=== PATIENT | female | born 1945 | race Caucasian/White ===

== ENCOUNTER 2019-11-16 16:31 | Outpatient (CLI) | payer MEDICARE, SELFPAY ==
--- NOTE | ~2019-11-16 | CT_ITS ---
EXAMINATION: CT abdomen pelvis w con DATE: 11/16/2019 17:31 INDICATION: Blood in stool. Lower abdominal pain. TECHNIQUE: Computed tomography (CT) of the abdomen and pelvis was performed with 100 cc Omnipaque 350 intravenous contrast. The dose-length product was 352.31 mGy-cm. Automated exposure control and iter ative reconstruction technique were employed. COMPARISON: CT dated 10/26/2017 FINDINGS: Heart size normal. No significant pleural or pericardial effusion. Moderate atherosclerosis. No evidence for aneurysm. Fatty infiltration of the liver. Status post chol ecystectomy with expected prominence of the bile ducts. There is small subcentimeter hypodensity righ t hepatic lobe, most likely benign cyst or hemangioma. The spleen, pancreas, adrenal glands and kidne ys are normal. Nonobstructive bowel gas pattern. Colonic diverticulosis without evidence for diverticulitis. The devendra endix is not positively visualized. There is no pericecal inflammatory change to suggest appendiciti s. No abnormal pelvic masses or fluid collections. No lymphadenopathy. Status post fusion at L4-5 wit h discectomy. Moderate lower thoracic spondylosis. No free air or free fluid. IMPRESSION: 1. No acute abnormalities. No findings to account for patient's symptoms. Reviewed, dictated and finalized at location A.
[2019-11-16 16:49] LABS: Basophils Percent Auto 0.3 % (0.2-1.2); Eosinophils Absolute Auto 0.1 K/mm3 (0-0.3); Eosinophils Percent Auto 1.1 % (0-4.4); Hematocrit 41.1 % (37.0-47.0); Immature Granulocyte Absolute 0.09 K/mm3 (0.00-0.031); Immature Granulocyte Percent A 0.7 % (0-0.5); Lymphocytes Absolute Auto 3.49 K/mm3 (0.9-3.2); Lymphocytes Percent Auto 27.9 % (18.3-44.2); Mean Corpuscular HGB Conc 34.1 g/dl (32-36); Mean Corpuscular Hemoglobin 32.3 pg (26-34); Mean Corpuscular Volume 94.9 fl (80-100); Mean Platelet Volume 9.4 fl (7.4-10.4); Monocytes Absolute Auto 0.6 K/mm3 (0.1-0.6); Neutrophils Absolute Auto 8.1 K/mm3 (1.3-6.7); Platelet Count Result 306 k/mm3 (150-375); Red Blood Count 4.33 M/mm3 (4.2-5.4); Red Cell Distribution Width 12.5 % (11.5-14.5); White Blood Count 12.5 K/mm3 (4.5-10.0)
[2019-11-16 17:02] LABS: Blood Urea Nitrogen 27 mg/dL (7-17); Calcium 9.1 mg/dL (8.4-10.2); Carbon Dioxide 29 mmol/L (22-30); Chloride 99 mmol/L (98-107); Estimated Glomerular Filt Rate 49; Glucose 96 mg/dL (65-105); Potassium 3.6 mmol/L (3.4-5.0); Sodium 138 mmol/L (137-145)
== END 2019-11-16 16:32 | disposition home or self-care (01) ==
PROVIDERS: PCP Internal Medicine; Visit Provider Internal Medicine
DX: K92.1 Melena (principal); R10.30 Lower abdominal pain, unspecified
CPT/HCPCS: 36415; 74177; 80048; 85025; Q9967

== ENCOUNTER 2019-11-20 13:43 | Outpatient (CLI) | payer MEDICARE, SELFPAY | END 2019-11-20 13:44 | disposition home or self-care (01) | LOC: ANHLAB 13:52 | PROVIDERS: PCP Internal Medicine; Visit Provider Internal Medicine | DX: R10.30 Lower abdominal pain, unspecified (principal); R19.7 Diarrhea, unspecified | CPT/HCPCS: 87045; 87046; 87177; 87209; 87324; 87427; 89055 ==

== ENCOUNTER 2019-12-22 07:41 | Outpatient (CLI) | payer MEDICARE, SELFPAY ==
--- NOTE | 2019-12-22 | ECHO_ITS ---
Patient Info Name: Shyann Gallegos Age: 74 years : 1945 Gender: Female Ht: 59 in Wt: 140 lbs BSA: 1.65 m2 HR: 65 bpm BP: 160 / 78 mmHg Technical Quality: Good Exam Date: 12/22/2019 8:14 AM Exam Location: [facility] Patient Status: Outpatient Admit Date: 12/22/2019 Staff Ordering Physician: Dejan Ashford MD Refining Engineer: Jennifer Bustamante RDCS Attending Provider: Dejan Ashford MD Referring Physician: Dejon NOLASCO; Exam Type: CA echo doppler color flow Study Info Indications R55 - Syncope and collapse Complete two-dimensional, color flow and Doppler transthoracic echocardiogram is performed. Summary 1. Left ventricular chamber dimension is normal. 2. Left ventricular systolic function is normal, estimated at 60-65%. 3. The left ventricular diastolic function is grade I diastolic dysfunction. 4. E/e' 10 is mildly elevated. 5. Left atrial chamber dimension is mildly enlarged. 6. There is mild aortic valve sclerosis. 7. There is mild mitral valve regurgitation. 8. There is trace tricuspid valve regurgitation. 9. No pulmonary hypertension, estimated pulmonary arterial systolic pressure is 32 mmHg. Left Ventricle E/e' 10 is mildly elevated. Left ventricular chamber dimension is normal. Left ventricular systolic function is normal, estimated at 60-65%. The left ventricular diastolic function is grade I diastolic dysfunction. Right Ventricle Right ventricular chamber dimension is normal. Right ventricular systolic function is normal. Left Atria Left atrial chamber dimension is mildly enlarged. Right Atria Right atrial chamber dimension is normal. Aortic Valve The aortic valve is trileaflet. There is mild aortic valve sclerosis. There is no aortic valve stenosis. There is no aortic valve regurgitation. Pulmonic Valve There is no pulmonic regurgitation. Mitral Valve There is no mitral valve stenosis. There is mild mitral valve regurgitation. Tricuspid Valve There is trace tricuspid valve regurgitation. No pulmonary hypertension, estimated pulmonary arterial systolic pressure is 32 mmHg. Pericardium/Pleural There is no pericardial effusion. Inferior Vena Cava Normal inferior vena cava with >50% collapse upon inspiration consistent with normal right atrial pressure, 5 mmHg. Aorta The aortic root size at the sinus of Valsalva is normal. Left Ventricular Outflow Tract Name Value Normal LVOT 2D LVOT Diameter 1.9 cm LVOT Doppler LVOT Peak Velocity 98 cm/s LVOT Peak Gradient 4 mmHg LVOT Mean Gradient 2 mmHg LVOT VTI 23 cm LVOT VTI/AV VTI Ratio 0.8 LVOT Stroke Volume 67 ml LVOT CO 4.3 l/min LVOT CI 2.6 l/min/m2 Pulmonic Valve Name Value Normal
--- NOTE | 2019-12-25 16:03 | WPDHOLTEREM ---
Holter/Event Monitor Holter/Event Monitor Date of procedure: 12/22/19 Procedure Type: 48 hour holter monitor Indications: Syncope Conclusion: 1. 48 hour holter monitor on 12/22/19. 2. Underlying rhythm is sinus rhythm. HR range 51-125 bpm; average HR 69 bpm. 3. There is one premature supraventricular complex. No supraventricular tachycardia. 4. There are 111 premature ventricular complexes and 11 ventricular bigeminy. No ventricular tachycardia. 5. No sinoatrial or atrioventricular blocks. No significant pauses greater than 2 seconds. 6. No symptoms available for correlation.
== END 2019-12-22 07:42 | disposition home or self-care (01) ==
LOC: ANHCARD 07:45
PROVIDERS: PCP Internal Medicine; Visit Provider Internal Medicine
DX: R55 Syncope and collapse (principal); I34.0 Nonrheumatic mitral (valve) insufficiency; I35.1 Nonrheumatic aortic (valve) insufficiency
CPT/HCPCS: 93225; 93226; 93306

== ENCOUNTER 2020-01-02 14:07 | Outpatient (CLI) | payer MEDICARE, SELFPAY ==
[2020-01-02 15:23] LABS: Blood Urea Nitrogen 17 mg/dL (7-17); Calcium 9.4 mg/dL (8.4-10.2); Carbon Dioxide 31 mmol/L (22-30); Chloride 99 mmol/L (98-107); Estimated Glomerular Filt Rate 55; Glucose 95 mg/dL (65-105); Potassium 4.5 mmol/L (3.4-5.0); Sodium 139 mmol/L (137-145)
[2020-01-02 15:45] LABS: Free T4 Free Thyroxine 0.84 ng/mL (0.78-2.19)
[2020-01-02 16:45] LABS: Folic Acid > 20.0 ng/mL (2.76->20)
[2020-01-04 23:09] LABS: Methylmalonic Acid 187 nmol/L (87-318)
== END 2020-01-02 14:08 | disposition home or self-care (01) ==
PROVIDERS: PCP Internal Medicine; Visit Provider Internal Medicine
DX: Z79.899 Other long term (current) drug therapy (principal)
CPT/HCPCS: 36415; 80048; 82607; 82746; 83921; 84439; 84443

== ENCOUNTER 2020-04-02 12:06 | Outpatient (CLI) | payer MEDICARE, SELFPAY ==
--- NOTE | ~2020-04-02 | MM_ITS ---
EXAMINATION: MM screening [facility] BI w ashly HISTORY: Screening mammogram TECHNIQUE: Craniocaudal and mediolateral oblique 3-D tomosynthesis images were obtained and synthetic 2-D images were generated. CAD analysis was submitted and interpreted. COMPARISON: 1945 BREAST PARENCHYMAL COMPOSITION: There are scattered areas of fibroglandular density. FINDINGS: There is stable mild fibroglandular asymmetry. There is no evidence of suspicious mass, asya cification, or architectural distortion to suggest malignancy in either breast. There has been no jose picious interval change. IMPRESSION: 1. No mammographic evidence of malignancy. 2. Recommend routine screening mammography in one year. BI-RADS Category 2: Benign finding(s). Reviewed, dictated and finalized at location A.
== END 2020-04-02 12:07 | disposition home or self-care (01) ==
LOC: ANHIMG 12:13
PROVIDERS: PCP Internal Medicine; Visit Provider Internal Medicine
DX: Z12.31 Encounter for screening mammogram for malignant neoplasm of breast (principal)
CPT/HCPCS: 77063; 77067

== ENCOUNTER 2021-05-20 07:30 | Outpatient (CLI) | payer MEDICARE, SELFPAY ==
--- NOTE | ~2021-05-20 | XR_ITS ---
EXAMINATION: XR UGIAC w barium swallow DATE: 05/20/2021 08:41 INDICATION: Abdominal pain TECHNIQUE: The patient drank thick barium, gas-producing crystals, and thin barium. A total of 1162 f luoroscopic images of the esophagus, stomach, and proximal small bowel were obtained. Fluoroscopy exp osure time was 2.0 minutes. Total DAP was 12.964 mGycm^2 COMPARISON: None. FINDINGS: The esophagus is normal without mass or stricture. Esophageal motility is normal. Small sli ding-type hiatal hernia with gastroesophageal junction extending to a maximum of 4 cm above level of the diaphragm.. There was no gastroesophageal reflux with provocative maneuvers. The stomach and prox imal small bowel are otherwise normal. Cholecystectomy clips in right upper quadrant. Plate-screw fix ation for C5-C7 anterior spinal fusion. IMPRESSION: 1. Small sliding-type hiatal hernia without evident reflux on provocative maneuvers. Reviewed, dictated and finalized at location A. IMPRESSION: 1. Small sliding-type hiatal hernia without evident reflux on provocative maneu vers.
--- NOTE | ~2021-05-20 | CT_ITS ---
EXAMINATION: CT abdomen pelvis w con INDICATION: Unspecified abdominal hernia without obstruction TECHNIQUE: Computed tomographic images of the abdomen and pelvis were obtained after the administrati on of 100 cc of Omnipaque 350 intravenous contrast. The dose-length product (DLP) was 374.19 mGy-cm. Automated exposure control and iterative reconstruction technique were employed. COMPARISON: 11/16/2019 FINDINGS: Minimal dependent atelectasis is present in the lung bases. The heart size is normal. The g allbladder is surgically absent. There is mild enlargement of the common bile duct and central intrah epatic ducts which is likely due to post cholecystectomy state. There is a 6 mm cyst in the right hep atic lobe. The liver is diffusely low in attenuation when compared with the spleen, consistent with h epatic steatosis. The spleen, pancreas, and adrenal glands are normal. The kidneys are unremarkable. No pathologically enlarged abdominal or pelvic lymph nodes are identified. There is no free intraperi toneal gas or evidence of bowel obstruction. There is calcified atherosclerosis of the aorta and many of the other arteries. Colonic diverticulosis is present without evidence of diverticulitis. There a re changes of anterior and posterior fusion at L4-5. IMPRESSION: 1. No CT correlate for the patient's symptoms. Reviewed, dictated and finalized at location A.
[2021-05-20 08:00] LABS: Estimated Glomerular Filt Rate 44
== END 2021-05-20 07:31 | disposition home or self-care (01) ==
PROVIDERS: PCP Internal Medicine; Visit Provider Internal Medicine
DX: K46.9 Unspecified abdominal hernia without obstruction or gangrene (principal); R10.9 Unspecified abdominal pain; R11.0 Nausea; K44.9 Diaphragmatic hernia without obstruction or gangrene
CPT/HCPCS: 74177; 74246; Q9967

== ENCOUNTER 2021-07-14 08:43 | Outpatient (CLI) | payer MEDICARE, SELFPAY | END 2021-07-14 08:44 | disposition home or self-care (01) | LOC: ANHLAB 08:45 | PROVIDERS: PCP Internal Medicine; Visit Provider Internal Medicine | DX: R19.7 Diarrhea, unspecified (principal) | CPT/HCPCS: 82438; 84302; 84311; 87045; 87177; 87209; 87324; 87427; 89055 ==

== ENCOUNTER 2021-10-15 01:41 | Day surgery (SDC) | payer MEDICARE, SELFPAY ==
[2021-10-08 12:33] VITALS: BMI 30.2
--- NOTE | 2021-10-14 16:42 | PM.HPGS ---
History of Present Illness History of Present Illness Consent: Risks, benefits, and alternatives have been discussed and questions answered. Patient agrees to proceed with procedure. Chief complaint: diarrhea, colitis Narrative: Shyann Gallegos is a 76 year old female who is being investigated for persistent diarrhea. This began about 5 or 6 months ago. She will have anywhere from 5-6 loose watery stools each day. She has taking cholestyramine powder but it has not been of much help Review of Systems Review of Systems: All systems reviewed & are unremarkable except as noted in HPI and below PMFSH Past Medical History Medical History Abdominal mass Abdominal pain Abnormal finding of blood chemistry, unspecified Acute herpangina Anemia Anterior communicating artery aneurysm Anxiety Benign essential hypertension Bloody stool BMI 30.0-30.9,adult BMI 31.0-31.9,adult BMI 32.0-32.9,adult Chronic pruritus Cognitive dysfunction CVA (cerebral vascular accident) had cardiac cath causing plaque embolism Diarrhea Diarrhea Diplopia Encounter for Medicare annual wellness exam Encounter for routine adult health examination without abnormal findings Encounter for screening mammogram for malignant neoplasm of breast Fall Familial hypercholesterolemia Family history of colon cancer FHx: type 2 diabetes mellitus Follow up GERD (gastroesophageal reflux disease) GERD (gastroesophageal reflux disease) History of paresthesia Hyperlipidemia Hypertension Hypervitaminosis D Lower abdominal pain Memory impairment Microvascular angina Nausea On fdc drug therapy Rectal abscess Seborrheic dermatitis Statin intolerance Syncope Vitamin D deficiency Surgical History Surgical History History of bladder surgery times 7 from [id number] History of bunionectomy 1979 right one in 1998 History of cerebral aneurysm repair times 2 2019 History of foot surgery right in 2013 left in 2015 History of hysterectomy total 1979 History of laparoscopic cholecystectomy 2003 History of repair of hip joint 2006 History of rotator cuff surgery left in 1996 right 1999 History of spinal surgery 2017 Family History Family History Father Diabetes mellitus Hypertension Family history of malignant neoplasm Family history of diabetes mellitus in first degree relative Family history of heart disease in male family member before age 55 Mother Hypertension Family history of heart disease in male family member before age 55 Sibling Family history of cardiovascular disease Family history of heart disease in male family member before age 55 Grandparent Carcinoma of colon Social History Social History Smoking status: Never smoker Alcohol intake: current Drinks per week: 7 Substance use: never Living arrangements: with family Gender identity (if verbalized by the patient): Female Sexual Orientation (if Verbalized by the Patient): Straight or Heterosexual Spiritual care concerns: No Meds Home Medications and Allergies Home Medications Medication Instructions Recorded Confirmed Type topiramate [Topamax] 50 mg PO BID 07/07/19 10/15/21 History aspirin 81 mg tablet,delayed 81 mg PO DAILY 09/13/19 10/08/21 History release calcium polycarbophil 625 mg tablet 1,250 mg PO BID 09/13/19 10/15/21 History mecobalamin (vitamin B12) 1,000 1,000 mcg SUBLINGUAL DAILY 09/13/19 10/15/21 History mcg disintegrating tablet,sublingual quinapril 40 mg tablet See Rx Instructions .ROUTE 11/27/20 10/15/21 Rx .COMPLEX #90 tablet bumetanide 1 mg tablet See Rx Instructions .ROUTE 01/27/21 10/08/21 Rx .COMPLEX #180 tablet isosorbide mononitrate 30 mg See Rx Instructions .ROUTE 01/27/21 10/15/21 Rx tabl
[2021-10-15 09:20] VITALS: BP 132/81; PULSE 72; RESP 18; TEMP 36.4; O2SAT 99
[2021-10-15] MEDS: LACTATED RINGERS 1,000 ML 150 ML IV CONT (09:29)
--- NOTE | 2021-10-15 10:09 | WPDANESEPPF ---
Anes - Initial Pre Proc Eval Procedure: Operation Date: 10/15/21 10:30 Proposed Procedures p Colonoscopy - Emanuel Phelps MD Date/Time: 10/15/21 10:09 Surgeon: Emanuel Phelps MD Pre Op Diagnosis: diarrhea, colitis Patient Data Age: 76 Gender: F Height: 1.5 m Weight: 66 kg Last Vital Signs Temp 97.6 F 10/15/21 09:20 Pulse 72 10/15/21 09:20 Resp 18 10/15/21 09:20 BP 132/81 10/15/21 09:20 Pulse Ox 99 10/15/21 09:20 Allergies Allergy/AdvReac Type Severity Reaction Status Date / Time meperidine Allergy Unknown Vomiting Verified 10/15/21 09:17 morphine Allergy Unknown Itching Verified 10/15/21 09:17 Dxkseyx-GPH-TpI Reductase Allergy Unknown Muscle Pain Verified 10/15/21 09:17 Inhibitor [Ubkvubv-Ywp-Onp Reductase Inhibitor] VICYL SUTURES Allergy Unknown ABCESS Uncoded 10/15/21 09:17 Home Medications Medication Instructions Recorded Confirmed Type topiramate [Topamax] 50 mg PO BID 07/07/19 10/15/21 History aspirin 81 mg tablet,delayed 81 mg PO DAILY 09/13/19 10/08/21 History release calcium polycarbophil 625 mg tablet 1,250 mg PO BID 09/13/19 10/15/21 History mecobalamin (vitamin B12) 1,000 1,000 mcg SUBLINGUAL DAILY 09/13/19 10/15/21 History mcg disintegrating tablet,sublingual quinapril 40 mg tablet See Rx Instructions .ROUTE 11/27/20 10/15/21 Rx .COMPLEX #90 tablet bumetanide 1 mg tablet See Rx Instructions .ROUTE 01/27/21 10/08/21 Rx .COMPLEX #180 tablet isosorbide mononitrate 30 mg See Rx Instructions .ROUTE 01/27/21 10/15/21 Rx tablet,extended release 24 hr .COMPLEX #90 tablet omeprazole 40 mg capsule,delayed 40 mg PO BID #180 cap 05/13/21 10/15/21 Rx release alprazolam 0.25 mg tablet 0.25 mg PO TID PRN #30 tablet 05/15/21 10/08/21 Rx citalopram 20 mg tablet See Rx Instructions .ROUTE 07/01/21 10/15/21 Rx .COMPLEX #90 tablet cholecalciferol (vitamin D3) 1,250 See Rx Instructions PO .COMPLEX 08/19/21 10/15/21 Rx mcg (50,000 unit) capsule #10 cap metoprolol tartrate 50 mg tablet See Rx Instructions .ROUTE 09/17/21 10/15/21 Rx .COMPLEX #180 tablet cholestyramine-aspartame 4 gram 4 ea PO DAILY 09/23/21 10/15/21 History oral powder for susp in a packet evolocumab 140 mg/mL subcutaneous 140 mg SUBCUT .every 2 weeks #2 ml 09/23/21 10/15/21 Rx pen injector Patient hx anesthesia problems: none Family hx anesthesia problems: none Results Review: All pre-operative results and documents have been reviewed as part of the pre-operative evaluation. [facility] Past Medical History Medical History Abdominal mass Abdominal pain Abnormal finding of blood chemistry, unspecified Acute herpangina Anemia Anterior communicating artery aneurysm Anxiety Benign essential hypertension Bloody stool BMI 30.0-30.9,adult BMI 31.0-31.9,adult BMI 32.0-32.9,adult Chronic pruritus Cognitive dysfunction CVA (cerebral vascular accident) had cardiac cath causing plaque embolism Diarrhea Diarrhea Diplopia Encounter for Medicare annual wellness exam Encounter for routine adult health examination without abnormal findings Encounter for screening mammogram for malignant neoplasm of breast Fall Familial hypercholesterolemia Family history of colon cancer FHx: type 2 diabetes mellitus Follow up GERD (gastroesophageal reflux disease) GERD (gastroesophageal reflux disease) History of paresthesia Hyperlipidemia Hypertension Hypervitaminosis D Lower abdominal pain Memory impairment Microvascular angina Nausea On [facility] drug therapy Rectal abscess Seborrheic dermatitis Statin intolerance Syncope Vitamin D deficiency Surgical History Surgical History History of bladder surgery times 7 from [id number] History of bunionectomy 1980 right one in 1998 History of cerebral aneurysm repair times 2 2019 History of foot surgery right in 2012 l
[2021-10-15 10:54] VITALS: BP 106/57; PULSE 65; RESP 16; O2SAT 98
[2021-10-15 11:04] VITALS: BP 153/76; PULSE 65; RESP 17; O2SAT 100
[2021-10-15 11:14] VITALS: BP 148/75; PULSE 62; RESP 13; O2SAT 100
== END 2021-10-15 11:15 | disposition home or self-care (01) ==
PROVIDERS: PCP Internal Medicine; Visit Provider Internal Medicine Gastroenterology
PROC: 0DJD8ZZ Inspection of Lower Intestinal Tract, Via Natural or Artificial Opening Endoscopic (ICD-10-PCS; CPT 45378; principal; 2021-10-15 10:30)
DX: R19.7 Diarrhea, unspecified (principal); K57.30 Diverticulosis of large intestine without perforation or abscess without bleeding; I10 Essential (primary) hypertension; F41.9 Anxiety disorder, unspecified; D64.9 Anemia, unspecified; E78.00 Pure hypercholesterolemia, unspecified; K21.9 Gastro-esophageal reflux disease without esophagitis; E78.5 Hyperlipidemia, unspecified; E55.9 Vitamin D deficiency, unspecified; Z86.73 Personal history of transient ischemic attack (TIA), and cerebral infarction without residual deficits; Z79.82 Long term (current) use of aspirin; Z79.899 Other long term (current) drug therapy
CPT/HCPCS: 45380; 88305; J2704; J7120

== ENCOUNTER → 2022-02-20 05:01 | Outpatient (CLI) | payer MEDICARE, SELFPAY ==
[2022-02-20 12:35] LABS: Influenza A QL RT-PCR Negative (Negative); Influenza B QL RT-PCR Negative (Negative); SARS-CoV-2 RNA PCR Negative
== END ==
PROVIDERS: PCP Internal Medicine; Visit Provider Internal Medicine
DX: Z20.822 Contact with and (suspected) exposure to COVID-19 (principal)
CPT/HCPCS: 87502; C9803; U0003; U0005

== ENCOUNTER 2022-02-23 11:08 | Outpatient (CLI) | payer MEDICARE, SELFPAY ==
--- NOTE | ~2022-02-23 | XR_ITS ---
EXAMINATION: XR sinus min 3V DATE: 02/23/2022 11:43 INDICATION: Cough. TECHNIQUE: 5 views of the paranasal sinuses were obtained. COMPARISON: Head CT 09/30/2018 FINDINGS: Bone alignment is normal. There is mucosal thickening in the maxillary sinuses and fluid in right maxillary sinus. There are changes of right-sided craniotomy with right-sided embolization coi ls and aneurysm clips. IMPRESSION: 1. Mucosal thickening in the paranasal sinuses and fluid in right maxillary sinus. Reviewed, dictated and finalized at location A. IMPRESSION: 1. Mucosal thickening in the paranasal sinuses and fluid in right maxillary sin us.
--- NOTE | ~2022-02-23 | XR_ITS ---
EXAMINATION: XR chest 2V DATE: 02/23/2022 11:43 INDICATION: Cough TECHNIQUE: PA and lateral views of the chest are obtained. COMPARISON: 09/30/2018 FINDINGS: The lungs are free of acute opacities. There is no pleural effusion or pneumothorax. The ca rdiomediastinal silhouette is normal. There is moderate thoracic spondylosis. Surgical clips in the r ight upper quadrant are likely from prior cholecystectomy. There is partially imaged posterior fusion hardware of the lumbar spine. Anterior fusion hardware is also noted in the lower cervical spine. IMPRESSION: 1. No acute cardiopulmonary abnormality. Reviewed, dictated and finalized at location A.
== END 2022-02-23 11:09 | disposition home or self-care (01) ==
PROVIDERS: PCP Internal Medicine; Visit Provider Internal Medicine
DX: R05.9 Cough, unspecified (principal); J34.89 Other specified disorders of nose and nasal sinuses
CPT/HCPCS: 70220; 71046

== ENCOUNTER 2022-06-02 11:11 | Outpatient (CLI) | payer MEDICARE, SELFPAY ==
--- NOTE | ~2022-06-02 | XR_ITS ---
XR hip LT min 2V 06/02/2022 11:51 Indication: 3 views left hip Procedure: 02/01/2019 Comparison: 02/01/2019 Findings: There is mild osteoarthritis of the left hip. There is anatomic alignment. No fracture or t raumatic malalignment. No soft tissue abnormality. No foreign body. Impression: 1: Mild osteoarthritis of the left hip. Reviewed, dictated and finalized at location B. Impression: 1: Mild osteoarthritis of the left hip.
== END 2022-06-02 11:12 | disposition home or self-care (01) ==
PROVIDERS: PCP Internal Medicine; Visit Provider Internal Medicine
DX: M16.12 Unilateral primary osteoarthritis, left hip (principal)
CPT/HCPCS: 73502

== ENCOUNTER 2022-07-26 15:35 | Emergency (ER) | payer MEDICARE, SELFPAY ==
[2022-07-26 15:53] VITALS: BP 142/77; PULSE 86; RESP 16; TEMP 36.1; O2SAT 99
--- NOTE | 2022-07-26 16:19 | ED.URI ---
HPI - URI/Sore Throat General Chief Complaint: Upper Respiratory Infection Stated Complaint: requests covid/flu test Time Seen by Provider: 07/26/22 16:00 Source: patient and family Mode of arrival: ambulatory Limitations: no limitations History of Present Illness HPI Narrative: Patient presents today with a one-week history of nasal congestion, right ear clogging, cough, fatigue, shortness of breath with exertion. Denies fever. She was placed on cefdinir via phone call 2 days ago by her PCP for her symptoms. She has also been taking Robitussin. Neither of these medications have been providing relief. Related Data Home Medications Medication Instructions Recorded Confirmed topiramate 50 mg tablet (Topamax) 50 mg PO BID 07/07/19 07/26/22 calcium polycarbophil 625 mg 1,250 mg PO BID 09/13/19 07/26/22 tablet (FiberCon) mecobalamin (vitamin B12) 1,000 1,000 mcg sublingual DAILY 09/13/19 07/26/22 mcg disintegrating tablet,sublingual amlodipine 5 mg tablet 5 mg PO DAILY 06/22/22 07/26/22 aspirin 81 mg chewable tablet 81 mg PO DAILY 06/22/22 07/26/22 prenat.vits,asya,hms-mgxd-bvdrj 1 tablet PO DAILY 06/22/22 07/26/22 Allergies Allergy/AdvReac Type Severity Reaction Status Date / Time meperidine Allergy Unknown Vomiting Verified 07/26/22 15:53 morphine Allergy Unknown Itching Verified 07/26/22 15:53 Dmmbjsl-VIO-JvF Reductase Allergy Unknown Muscle Pain Verified 07/26/22 15:53 Inhibitor [Pgbmapt-Zcn-Agd Reductase Inhibitor] demeral Allergy Mild Unknown Uncoded 07/26/22 15:53 VICYL SUTURES Allergy Unknown ABCESS Uncoded 07/26/22 15:53 Review of Systems Review of Systems: CONSTITUTIONAL: Denies body aches, fever, chills, or sweats.+ fatigue EYES: Denies visual changes, redness, or discharge. ENT: Denies rhinorrhea. + congestion, right ear clogging CARDIOVASCULAR: Denies chest pain, palpitations, or edema. RESPIRATORY: + cough, shortness of breath with exertion GASTROINTESTINAL: Denies abdominal pain, nausea, vomiting, or diarrhea. GENITOURINARY: Denies dysuria or hematuria. SKIN: Denies rash, itching, or wounds. MUSCULOSKELETAL: Denies back pain, joint pain, or myalgia. NEUROLOGIC: Denies headache, numbness, tingling, or weakness. PSYCH: Denies depression or anxiety. [facility] Past Medical History Medical History Abdominal mass Abdominal pain Abnormal finding of blood chemistry, unspecified Acute herpangina Anemia Anterior communicating artery aneurysm Anxiety Benign essential hypertension Bloody stool BMI 30.0-30.9,adult BMI 31.0-31.9,adult BMI 32.0-32.9,adult Chronic pruritus Cognitive dysfunction CVA (cerebral vascular accident) had cardiac cath causing plaque embolism Diarrhea Diarrhea Diplopia Encounter for Medicare annual wellness exam Encounter for routine adult health examination without abnormal findings Encounter for screening mammogram for malignant neoplasm of breast Essential (primary) hypertension Fall Familial hypercholesterolemia Family history of colon cancer FHx: type 2 diabetes mellitus Follow up GERD (gastroesophageal reflux disease) GERD (gastroesophageal reflux disease) History of paresthesia History of stress test Hyperlipidemia Hypertension Hypervitaminosis D Lower abdominal pain Memory impairment Microvascular angina Mixed hyperlipidemia Nausea 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
== END 2022-07-26 16:30 | disposition home or self-care (01) ==
PROVIDERS: Emergency Provider Nurse Practitioner; PCP Internal Medicine
DX: B34.9 Viral infection, unspecified (principal); H66.003 Acute suppurative otitis media without spontaneous rupture of ear drum, bilateral; I10 Essential (primary) hypertension; K21.9 Gastro-esophageal reflux disease without esophagitis; E78.5 Hyperlipidemia, unspecified; Z79.82 Long term (current) use of aspirin; Z20.822 Contact with and (suspected) exposure to COVID-19
CPT/HCPCS: 87426; 87804; 99213; C9803; G0463

== ENCOUNTER 2022-08-13 12:30 | Outpatient (RCR) | payer MEDICARE, SELFPAY ==
--- NOTE | 2022-07-14 17:10 | PTOPEVAL1 ---
Assessment and note entered by Paris Maza, PT Evaluation Information Assessment Status Evaluation Diagnosis L hip trochanteric and sciatica Subjective Information Just wants to be able to walk without being so uncomfortable Reported Pain Level Pain Score 2: Self Report Additional Pain Score Comments Had a steroid shot, and had 0/10 pain after this for about a week. was about 2 weeks ago Assessment PT Clinical Summary Pt presents w/ L trochanteric bursitis. Had been seeing her chiropractor for this and has improved but has not become pain free thus was referred to MD. Pt demo's tenderness to TFL L>R, glute med L>R , (+) tight ITB bilat, and poor lumbopelvic core strength. Pt will benefit from therapy to address these issues and improve pain thus meeting her goals Plan of Care Interventions Electrical Stimulation,Hot Pack/Cold Pack,Manual Therapy,Neuro Re-education,Therapeutic Activities, Therapeutic Exercise,Ultrasound PT Services Indicated Yes Treatment Frequency and 1-2x weekly x 4-6 weeks Duration These treatments will address the objective and functional deficits as defined above. The patient will be advanced safely and appropriately in order for the patient to progress towards his/her prior level of function. Additional exercises will be introduced and as well as a comprehensive home exercise program upon discharge, if needed, ?to ensure carryover of functional gains achieved in the clinic. This treatment plan has been reviewed and agreement upon by the patient.
--- NOTE | 2022-08-05 15:09 | PCPTNOTE ---
Patient did not come to appointment this date. Called and spoke with patient who states she was confused and thought her appointment was tomorrow. Patient is scheduled for tomorrow August 06.
--- NOTE | 2022-08-13 13:03 | BUPTOPDC ---
Assessment and note entered by Paris Maza, PT Assessment Status Discharge Report Diagnosis L hip trochanteric and sciatica Subjective Information Pt reports feeling 0% improvement with therapy. Cont to have pain in left hip. Reported Pain Level Pain Score 0/10: seated Assessment PT Clinical Summary Pt dannyo's improved hamstring length, piriformis length grossly unchanged without pain during testing. Lumbar AROM WFL in all planes however has increased pain in left glute with AROM compared to evaluation without pain. Localized glute pain appears increased today compared to prior sessions , limiting left hip strength testing. Pelvis appears aligned to be aligned today, and pt maryse's improved core strength also. Pt reports will be receiving an MRI 08/25/22 and her doctor thinks she has tears in there . Pt encouraged to call and let therapist know findings, but this plan will be discharged. Should pt require continued therapy , a new prescription for a new evaluation will be necessary. Plan of Care Discharge from current plan.
== END 2022-08-14 10:22 | disposition home or self-care (01) ==
LOC: ANHGOSHPT 12:30
PROVIDERS: PCP Internal Medicine; Visit Provider Orthopaedic Surgery
DX: M70.62 Trochanteric bursitis, left hip (principal)
CPT/HCPCS: 97014; 97110; 97112; 97140; 97162; G0283

== ENCOUNTER → 2022-10-01 09:36 | Outpatient (CLI) | payer MEDICARE, SELFPAY ==
--- NOTE | ~2022-10-01 | CT_ITS ---
Noncontrast CT scan of the left hip Correlation: Pain TECHNIQUE: Axial noncontrast imaging of the pelvis was performed. Sagittal and coronal reformatted im ages through the left hip were performed. Dose reduction technique was used on this scan by utilizing automated exposure control and iterative reconstruction technique. FINDINGS: No acute fracture or dislocation seen. Bilateral hip joint spaces are preserved. Bilateral SI joints appear intact. Pubic symphysis unremarkable. Visual is musculature about the pelvis and left hip is unremarkable. No soft tissue mass or fluid col lection seen. No fluid distended bursae identified. Visualized bowel loops are unremarkable. No pelvic mass identified. No ascites. IMPRESSION: No significant abnormality identified. Reviewed, dictated and finalized at location . [employer]
== END ==
PROVIDERS: PCP Internal Medicine; Visit Provider Orthopaedic Surgery
DX: M25.552 Pain in left hip (principal)
CPT/HCPCS: 73700

== ENCOUNTER 2022-12-23 14:26 | Outpatient (CLI) | payer MEDICARE, SELFPAY ==
--- NOTE | ~2022-12-23 | MM_ITS ---
EXAMINATION: MM screening linda BI w ashly HISTORY: Screening mammogram TECHNIQUE: Craniocaudal and mediolateral oblique 3-D tomosynthesis images were obtained and synthetic 2-D images were generated. CAD analysis was submitted and interpreted. COMPARISON: 04/02/2020, 01/03/2019, 12/28/2017 bilateral screening mammogram examinations BREAST PARENCHYMAL COMPOSITION: The breasts are almost entirely fatty. FINDINGS: There is no evidence of suspicious mass, calcification, or architectural distortion to sugg est malignancy in either breast. There has been no suspicious interval change. IMPRESSION: 1. No mammographic evidence of malignancy. 2. Recommend routine screening mammography in one year. BI-RADS Category 1: Negative Reviewed, dictated and finalized at location B.
== END 2022-12-23 14:27 | disposition home or self-care (01) ==
PROVIDERS: PCP Internal Medicine; Visit Provider Internal Medicine
DX: Z12.31 Encounter for screening mammogram for malignant neoplasm of breast (principal)
CPT/HCPCS: 77063; 77067

== ENCOUNTER 2023-05-24 13:04 | Observation (INO) | payer MEDICARE, SELFPAY ==
--- NOTE | ~2023-05-24 | XR_ITS ---
EXAMINATION: XR pelvis 1-2V, XR femur LT min 2V DATE: 05/24/2023 14:59 INDICATION: Left hip pain TECHNIQUE: 1. An anteroposterior view of the pelvis was obtained. 2. AP and lateral views of the left femur were obtained on overlapping proximal and distal images. COMPARISON: Left hip CT dated 10/01/2022 FINDINGS: Postoperative changes of a combined instrumented L4-L5 anterior and posterior spinal fusion with inte rbody bone graft cage and incompletely visualized bilateral vertical candy and pedicle screw fixation. Likely dropped clip in the central pelvis. Bone alignment is normal. No fracture or suspected avascul ar necrosis. Mild bilateral hip osteoarthritis with superomedial predominant nonuniform joint space n arrowing. Additional mild osteoarthritis at the bilateral sacroiliac joints. Left knee joint spaces appear norm al on nonweightbearing imaging. Soft tissues are unremarkable. No left knee joint effusion. IMPRESSION: 1. Mild bilateral hip and sacroiliac osteoarthritis. No acute osseous abnormality in the pelvis or le ft thigh. Reviewed, dictated and finalized at location A. IMPRESSION: 1. Mild bilateral hip and sacroiliac osteoarthritis. No acute osseous abnormali ty in the pelvis or left thigh.
[2023-05-24 13:11] VITALS: BP 150/71; PULSE 69; RESP 17; TEMP 36.1; O2SAT 100
[2023-05-24] MEDS: ACETAMINOPHEN 500 MG TABLET 1000 MG PO (15:02)
[2023-05-24] MEDS: CYCLOBENZAPRINE HCL 5 MG TABLET PO ×2 (15:02→23:34)
[2023-05-24] MEDS: oxyCODONE/ACETAMINOPHEN (*CRX) 5-325 MG TABLET 1 TABLET PO (16:06)
--- NOTE | 2023-05-24 16:56 | ED.LOWEXIN ---
HPI - Extremity Injury (Lower) General Chief Complaint: Extremity Injury, Lower Stated Complaint: fall - left hip pain Time Seen by Provider: 05/24/23 14:20 History of Present Illness HPI Narrative: This is a 78-year-old female, who presents to the emergency department complaining of sudden onset left leg pain. The patient states she was working in her yard, pushing an empty the garbage can, when she suddenly felt shooting left leg pain, originating in the buttock and spreading to the foot. She also complains of numbness of the base of the left foot. She denies preceding trauma, fevers, chills, chest pain or pain. Related Data Home Medications Medication Instructions Recorded Confirmed topiramate 50 mg tablet (Topamax) 50 mg PO BID 07/07/19 04/01/23 calcium polycarbophil 625 mg 1,250 mg PO BID 09/13/19 04/01/23 tablet (FiberCon) amlodipine 5 mg tablet 5 mg PO DAILY 06/22/22 04/01/23 aspirin 81 mg chewable tablet 81 mg PO DAILY 06/22/22 04/01/23 prenat.vits,asya,mbf-zzop-qqghr 1 tablet PO DAILY 06/22/22 04/01/23 mecobalamin (vitamin B12) 1,000 1,000 mcg PO DAILY 04/05/23 mcg chewable tablet Allergies Allergy/AdvReac Type Severity Reaction Status Date / Time meperidine Allergy Unknown Vomiting Verified 05/24/23 13:48 morphine Allergy Unknown Itching Verified 05/24/23 13:48 Pjijlnr-AGQ-WrJ Reductase Allergy Unknown Muscle Pain Verified 05/24/23 13:48 Inhibitor [Lfqxytg-Bva-Olh Reductase Inhibitor] demeral Allergy Mild Unknown Uncoded 10/07/22 10:53 VICYL SUTURES Allergy Unknown ABCESS Uncoded 10/07/22 10:53 Review of Systems Review of Systems: CONSTITUTIONAL: Denies fever, chills, or sweats. CARDIOVASCULAR: Denies chest pain, palpitations, or edema. RESPIRATORY: Denies cough or dyspnea. GASTROINTESTINAL: Denies abdominal pain, nausea, vomiting, or diarrhea. GENITOURINARY: Denies dysuria or hematuria. SKIN: Denies rash or itching. MUSCULOSKELETAL: Left leg pain denies back pain, or myalgia. NEUROLOGIC: Left foot numbness denies headache, dizziness, or weakness. PSYCHIATRIC: Denies anxiety or depression. [facility] Past Medical History Medical History Abdominal mass Abdominal pain Abnormal finding of blood chemistry Abnormal finding of blood chemistry, unspecified Acute herpangina Anemia Anterior communicating artery aneurysm Anxiety Benign essential hypertension Bloody stool BMI 28.0-28.9,adult BMI 29.0-29.9,adult BMI 30.0-30.9,adult BMI 31.0-31.9,adult BMI 32.0-32.9,adult Chest wall pain Chronic pruritus Cognitive dysfunction CVA (cerebral vascular accident) had cardiac cath causing plaque embolism Diarrhea Diarrhea Diplopia Encounter for Medicare annual wellness exam Encounter for routine adult health examination without abnormal findings Encounter for screening mammogram for malignant neoplasm of breast Essential (primary) hypertension Fall Familial hypercholesterolemia Family history of colon cancer FHx: type 2 diabetes mellitus Flank pain Follow up GERD (gastroesophageal reflux disease) GERD (gastroesophageal reflux disease) History of paresthesia History of stress test Hyperlipidemia Hypertension Hypervitaminosis D Lower abdominal pain Memory impairment Microvascular angina Mixed hyperlipidemia Nausea 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
[2023-05-24] MEDS: LIDOCAINE 5% PATCH 1 PATCH TRANSDERM (17:04)
[2023-05-24 21:36] VITALS: BP 154/65; PULSE 67; RESP 18; O2SAT 99
--- NOTE | 2023-05-24 22:30 | ADMGEN ---
This patient, Shyann Gallegos, was admitted to [address] [place] [address] Room 330-02. Patient/family oriented to hospital policies and general routines including ID bracelet, bed and alarms, visiting hours, pain management, procedures, bathroom and other care routines, personal items, smoking policy, room service/diet, and visiting hours. Information on how to activate the Rapid Response Team has been discussed. Patient/Family are encouraged to report perceived risks to care and to ask questions if they do not understand what they are told or what they should do.
[2023-05-24 22:40] VITALS: BP 140/69; PULSE 65; RESP 16; TEMP 36.7; O2SAT 98; BMI 28.4
[2023-05-24 22:53] VITALS: BMI 28.7
--- NOTE | 2023-05-24 23:07 | PM.IMHP ---
H&P: HPI History of Present Illness Date/Time: 05/24/23 22:00 Chief Complaint: Left back and leg pain. Narrative: This is a pleasant 78-year-old female with history of hypertension, cerebral aneurysm status post clip, hypertension, dyslipidemia, and gastroesophageal reflux disease who presented to the emergency department via EMS from home for evaluation of left back and leg pain. The patient provides the following history. She felt in her usual state of health when she got up this morning. She and her spent time raking up leaves in the yard. While pushing an empty trash bin in the grass to clean up the leaves, she had sudden onset of severe, sharp shooting pain in the left buttock radiating down the left leg. Her leg buckled and she fell backwards onto the grass. She was unable to get herself up due to excruciating pain and was brought in for evaluation. In addition to the pain she has some numbness and tingling at the bottom of the left foot and weaker foot pushes on the left when compared to the right. She was given a dose of cyclobenzaprine and oxycodone for presumed piriformis syndrome and she was to be discharged home however was not able to get herself up and she is being admitted in this setting for supportive care. Review of Systems Review of Systems: Twelve systems were reviewed. No fever, chills, or sweats. No recent cold or flu symptoms. No chest pain shortness a breath. No other focal symptoms. Except as documented, all other systems were reviewed and are negative. [facility] Past Medical History Medical History (Updated 05/25/23 @ 16:49 by Agatha Freedman PA-C) Anemia Anterior communicating artery aneurysm Anxiety Benign essential hypertension Chronic pruritus Cognitive dysfunction CVA (cerebral vascular accident) had cardiac cath causing plaque embolism Essential (primary) hypertension Familial hypercholesterolemia GERD (gastroesophageal reflux disease) Hyperlipidemia Hypertension Hypervitaminosis D Microvascular angina Mixed hyperlipidemia Seborrheic dermatitis Statin intolerance Syncope Vitamin D deficiency Surgical History Surgical History History of bladder surgery times 7 from [id number] History of bunionectomy 1979 right one in 1998 History of cerebral aneurysm repair times 2 2019 History of cholecystectomy (~2002) History of foot surgery right in 2013 left in 2015 History of hysterectomy total 1978 History of laparoscopic cholecystectomy 2003 History of repair of hip joint 2006 History of rotator cuff surgery left in 1997 right 1999 History of spinal surgery 2017 History of surgery on lower extremity (~1977) Tail bone removal Family History Family History Father Diabetes mellitus Hypertension Family history of malignant neoplasm Family history of diabetes mellitus in first degree relative Family history of heart disease in male family member before age 55 Heart disease Mother Hypertension Family history of heart disease in male family member before age 55 Heart disease Sibling Family history of cardiovascular disease Family history of heart disease in male family member before age 55 Grandparent Carcinoma of colon Social History Social History (Updated 05/25/23 @ 16:50 by Agatha Freedman PA-C) Smoking status: Never smoker Alcohol intake: current Drinks per week: 5 Substance use: never Lack of Transportation: No Lack of Food: Never True Current Housing: I Have Housing Concerned About Future Housing: No Difficulty Paying Gas/Electric Bills: No Difficulty Paying for Meds: No Currently Unemployed: No Education: Trade/Vocational Certificate Difficulty w/ Childcare or Family Care: No Living arrangements: with family Occupation/Education: retired Spiritual care concerns: No Meds Home Medicati
[2023-05-24] MEDS: MELATONIN 5 MG TABLET 10 MG PO (23:33)
[2023-05-25 06:00] VITALS: BP 106/53; PULSE 69; RESP 16; TEMP 36.8; O2SAT 97
[2023-05-25 06:33] LABS: Hematocrit 36.4 % (37.0-47.0); Hemoglobin 12.3 g/dL (12.0-15.0); Mean Corpuscular HGB Conc 33.8 g/dl (32-36); Mean Corpuscular Hemoglobin 32.6 pg (26-34); Mean Corpuscular Volume 96.6 fl (80-100); Mean Platelet Volume 9.7 fl (7.4-10.4); Platelet Count Result 210 k/mm3 (150-375); Red Blood Count 3.77 M/mm3 (4.2-5.4); Red Cell Distribution Width 12.8 % (11.5-14.5); White Blood Count 9.5 K/mm3 (4.5-10.0)
[2023-05-25 06:46] LABS: Alanine Aminotransferase 18 U/L (6-35); Albumin Level 4.1 g/dL (3.5-5.1); Alkaline Phosphatase 62 U/L (38-126); Anion Gap 9 mmol/L (8-16); Aspartate Amino Transferase 26 U/L (14-36); Bilirubin,Total 0.9 mg/dL (0.2-1.3); Blood Urea Nitrogen 19 mg/dL (7-17); CRP 0.9 mg/dL (<1.0); Calcium 8.9 mg/dL (8.4-10.2); Carbon Dioxide 25 mmol/L (22-30); Chloride 101 mmol/L (98-107); Estimated Glomerular Filt Rate 54; Glucose 103 mg/dL (65-110); Magnesium 1.8 mg/dL (1.6-2.3); Potassium 3.1 mmol/L (3.4-5.0); Sodium 135 mmol/L (137-145)
[2023-05-25] MEDS: POTASSIUM CHLORIDE 20 MEQ ER TABLET 40 MEQ PO (09:07)
[2023-05-25] MEDS: oxyCODONE/ACETAMINOPHEN (*CRX) 10-325 MG TABLET 1 TAB PO (09:10)
--- NOTE | 2023-05-25 10:57 | PM.DS ---
DS: Admitting Diagnosis Discharge Date 05/25/2023 Admitting Diagnosis Radiculopathy DS: Discharge Diagnosis Discharge Diagnosis (1) Sciatica of left side: Code(s): M54.32 - Sciatica, left side Status: Acute (2) Acute leg pain: Qualifiers: Laterality: left Qualified Code(s): M79.605 - Pain in left leg Code(s): M79.606 - Pain in leg, unspecified Status: Acute DS: Summary Hospital Course Hospital Course: This is a pleasant 78-year-old female with history of hypertension, cerebral aneurysm status post clip, hypertension, dyslipidemia, and gastroesophageal reflux disease who presented to the emergency department via EMS from home for evaluation of left back and leg pain.? The patient provides the following history. She felt in her usual state of health when she got up this morning.? She and her spend time breaking up leaves in the yard. While pushing an empty trash bin in the grass to clean up the leaves, she had sudden onset of severe, sharp shooting pain in the left buttock radiating down the left leg. Her leg buckled and she fell backwards onto the grass. She was unable to get herself up due to excruciating pain and was brought in for evaluation. In addition to the pain she has some numbness and tingling at the bottom of the left foot and weaker foot pushes on the left when compared to the right. She was given a dose of cyclobenzaprine and oxycodone for presumed piriformis syndrome and she was to be discharged home however was not able to get herself up and she is being admitted in this setting for supportive care. Patient still has some radiculopathy on the left side. She was advised that she needs extensive physical therapy along with pain medications and muscle relaxants. Patient was also advised that she would benefit from course of steroid to relieve inflammation in the area. Patient advised that this is outpatient treatment and she does not need to necessarily stay in the hospital. Patient understands and agrees with the plan and is being discharged home Time Spent with Patient Time attestation: Total time spent providing and/or coordinating discharge services: DS: Data Data Completed and Pending Labs on day of discharge: Labs from last 24 hours 05/25/23 05:58 WBC 9.5 RBC 3.77 L Hgb 12.3 Hct 36.4 L MCV 96.6 MCH 32.6 MCHC 33.8 RDW 12.8 Plt Count 210 MPV 9.7 Sodium 135 L Potassium 3.1 L Chloride 101 Carbon Dioxide 25 Anion Gap 9 BUN 19 H Creatinine 1.00 Estim Creat Clear Calc Not Reportable Estimated GFR 54 L Glucose 103 Calcium 8.9 Magnesium 1.8 Total Bilirubin 0.9 AST 26 ALT 18 Alkaline Phosphatase 62 C-Reactive Protein 0.9 Total Protein 7.0 Albumin 4.1 Discharge Plan Discharge Discharging Clinician: Duke Boyd Anticipated Discharge Date/Time: 05/25/23 10:53 Patient Disposition: Home, Self-Care Activity: no preference Diet: heart healthy Patient Instructions: Antibiotic Form, Aspirin (By mouth), Pain Management (DC) Patient Language: Turkish Stand Alone Forms: General Discharge Information Follow-up/Referrals: Deajn Ashford MD [Primary Care Provider] - Discharge Medications: New cyclobenzaprine 5 mg tablet 5 mg PO TID PRN (Reason: muscle spasm) Qty: 15 0RF oxycodone-acetaminophen 10-325 mg Tablet 1 tablet PO Q4H PRN (Reason: Pain Rated 7-10) Qty: 10 0RF methylprednisolone [Medrol (Gume)] 4 mg tablets,dose pack See Rx Instructions .ROUTE .COMPLEX Qty: 21 0RF Rx Instructions: orally per package directions Continued calcium polycarbophil [FiberCon] 625 mg tablet 1,250 mg PO BID amlodipine 5 mg tablet 5 mg PO DAILY prenat.vits,asya,qyw-qhzc-kspbb Tablet 1 tablet PO DAILY aspirin 81 mg tablet,chewable 81 mg PO DAILY topiramate [Topamax] 50 mg Tablet 50 mg PO BID melatonin 10 mg Tablet,Chewable 10 mg PO potassium ch
== END 2023-05-25 13:00 | disposition home or self-care (01) ==
LOC: ANHED 16:58 → ANH3MEDSUR 19:36
PROVIDERS: Physician Assistant; Admitting Provider Hospitalist; Emergency Provider Preventive Medicine Aerospace Medicine; PCP Internal Medicine; Visit Provider Hospitalist
DX: M79.609 Pain in unspecified limb (principal); M54.32 Sciatica, left side; E78.2 Mixed hyperlipidemia; D64.9 Anemia, unspecified; I10 Essential (primary) hypertension; F41.9 Anxiety disorder, unspecified; K21.9 Gastro-esophageal reflux disease without esophagitis; E67.3 Hypervitaminosis D; E55.9 Vitamin D deficiency, unspecified; M62.838 Other muscle spasm; M16.12 Unilateral primary osteoarthritis, left hip; I67.1 Cerebral aneurysm, nonruptured; Z98.890 Other specified postprocedural states; F10.90 Alcohol use, unspecified, uncomplicated; Z86.73 Personal history of transient ischemic attack (TIA), and cerebral infarction without residual deficits; Z79.82 Long term (current) use of aspirin; Z79.891 Long term (current) use of opiate analgesic; Z79.899 Other long term (current) drug therapy
CPT/HCPCS: 36415; 72170; 73552; 80053; 83735; 85027; 86140; 99285; A9270; G0378

== ENCOUNTER 2023-06-18 14:30 | Outpatient (RCR) | payer MEDICARE, SELFPAY ==
--- NOTE | 2023-06-02 15:58 | OPREHPOC ---
Outpatient Therapy Plan of Care This is a Multidisciplinary Plan of Care that may contain components documented by all disciplines (PT, OT, and ST.) PT Problem 1 PT Problem #1 Knowledge Deficit PT Goal 1 Goal Pt to be IND with issued HEP Target Visit 8 PT Problem 2 PT Problem #2 Pain PT Goal 1 Goal Pt to report pain no greater 3/10 in the last week . Target Visit 8 PT Goal 2 Goal Pt to report 75% improvement in overall symptoms. Target Visit 8 PT Problem 3 PT Problem #3 Impaired Range of Motion PT Goal 1 Goal Pt to report no increase in pain with passive hip ROM Target Visit 8 PT Problem 4 PT Problem #4 Impaired Gait PT Goal 1 Goal Pt to improve 2 min walk distance from 322ft to 400ft. Target Visit 8 PT Problem 5 PT Problem #5 Impaired Sensation PT Goal 1 Goal Pt to decline any altered sensation down her leg in the last week. Target Visit 8
--- NOTE | 2023-06-02 15:58 | PTOPEVAL1 ---
Assessment and note entered by Ladan Lucas, PT, DPT Evaluation Information Assessment Status Evaluation Diagnosis L sided sciatic pain Onset 1-2 weeks Subjective Information Pt states she fell last week and was in the hospital overnight for it. She was diagnosis there with sciatica. She states her pain has not gone away and she states she is walking very hesitant to avoid pain. 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 Pt states she likes to walk her dogs and do work around the house. Reported Pain Level Pain Score 4: Self Report Assessment PT Clinical Summary Shyann presents to therapy today for her initial evaluation with a diagnosis of R sciatic pain following a fall. Today she demonstrates increased pain with passive hip ROM, especially into max flexion and adduction. She ambulated with a shortened stride length and minor trunk extension. PT reports tenderness to palpation throughout her L piriformis and ITB region. Plan of Care Interventions Electrical Stimulation,Gait Training,Hot Pack/Cold Pack,Manual Lymph Drainage,Neuro Re-education, Patient/Caregiver Educati,Therapeutic Activities, Therapeutic Exercise,Ultrasound PT Services Indicated Yes Treatment Frequency and 2x/wk for 8 visits Duration These treatments will address the objective and functional deficits as defined above. The patient will be advanced safely and appropriately in order for the patient to progress towards his/her prior level of function. Additional exercises will be introduced and as well as a comprehensive home exercise program upon discharge, if needed, ?to ensure carryover of functional gains achieved in the clinic. This treatment plan has been reviewed and agreement upon by the patient.
--- NOTE | 2023-06-18 15:13 | PTOPPROG ---
Assessment and note entered by Ladan Lucas, PT, DPT Evaluation Information Assessment Status Progress Diagnosis L sided sciatic pain Onset 1-2 weeks Subjective Information Pt states overall her leg is doing much better. She states morning are still a little sore until she gets it stretched out but then after that she is good. Assessment PT Clinical Summary Shyann presents to therapy today for her progress report following 5 visits with a diagnosis of R sciatic pain following a fall. Today she demonstrates improve active and passive hip ROM in all direction, decreased pain with resistance, improve gait speed and pattern, and declines any radicular pain in the last week. Pt does continues to have a shortened and tender ITB. She required to follow up in a month if needed. Plan of Care Interventions Electrical Stimulation,Gait Training,Hot Pack/Cold Pack,Manual Lymph Drainage,Neuro Re-education, Patient/Caregiver Educati,Therapeutic Activities, Therapeutic Exercise,Ultrasound PT Services Indicated Yes Treatment Frequency and follow up in a month if needed Duration These treatments will address the objective and functional deficits as defined above. The patient will be advanced safely and appropriately in order for the patient to progress towards his/her prior level of function. Additional exercises will be introduced and as well as a comprehensive home exercise program upon discharge, if needed, ?to ensure carryover of functional gains achieved in the clinic. This treatment plan has been reviewed and agreement upon by the patient.
--- NOTE | 2023-08-02 09:43 | PTOPDC ---
Assessment and note entered by Ladan Lucas, PT, DPT Evaluation Information Assessment Status Discharge - Pt Not Present Diagnosis L sided sciatic pain Onset 1-2 weeks Subjective Information Pt was placed on hold 06/18/23 and was told to follow up if needed. She has not contacted the clinic since. Attempted to call pt to follow up and was unable to leave message. Assessment PT Clinical Summary Pt completed 5 visits of skilled therapy from 06/02 to 06/18/23. She will be discharged at this time. If she needs additional therapy at a later date she will need a new order.
== END 2023-08-02 10:52 | disposition home or self-care (01) ==
LOC: ANHGOSHPT 14:30
PROVIDERS: PCP Internal Medicine; Visit Provider Hospitalist
DX: M54.32 Sciatica, left side (principal)
CPT/HCPCS: 97110; 97140; 97161; 97530

== ENCOUNTER 2023-08-09 12:27 | Outpatient (CLI) | payer MEDICARE, SELFPAY ==
--- NOTE | ~2023-08-09 | XR_ITS ---
EXAMINATION: XR toe 1st LT min 2V DATE: 08/09/2023 12:15 INDICATION: Left great toe swelling. TECHNIQUE: 4 views of left great toe were obtained. COMPARISON: None. FINDINGS: Bone alignment is normal. No fracture. There is screw fixation of the necks of the second a nd third metatarsals. There are changes of arthrodesis procedure of first metatarsophalangeal joint w ith dorsal plate and screws and interfragmentary screw. There is plate and screw fixation of base of first metatarsal. There is likely fusion of second proximal interphalangeal joint. There is mild oste oarthritis of first interphalangeal joint. IMPRESSION: 1. Mild osteoarthritis of first interphalangeal joint. 2. Ankylosis procedure of first metatarsophalangeal joint. Reviewed, dictated and finalized at location E. [employer]
[2023-08-09 12:51] LABS: Appearance Urine Clear (Clear); Bilirubin Urine Negative (Negative); Blood Urine Negative (Negative); Color Urine Yellow (Yellow); Glucose Urine UA Negative (Negative); Ketones Urine Negative (Negative); Leukocyte Esterase Ur Negative LEU/UL (Negative); Nitrate Urine Negative (Negative); Protein Urine Negative (Negative); Specific Grav Ur 1.005 (1.001-1.035); Urobilinogen Urine 0.2 mg/dL (<2.0); pH Urine 6.5 (5.0-9.0)
[2023-08-09 12:54] LABS: Add Urine Microscopic? NO
[2023-08-09 13:05] LABS: CRP 0.8 mg/dL (<1.0); Uric Acid 8.5 mg/dL (2.5-7.5)
[2023-08-09 13:37] LABS: Erythrocyte Sedimentation Rate 20 mm/hr (0-20)
== END 2023-08-09 12:28 | disposition home or self-care (01) ==
PROVIDERS: PCP Internal Medicine; Visit Provider Internal Medicine
DX: M19.072 Primary osteoarthritis, left ankle and foot (principal); Z79.899 Other long term (current) drug therapy
CPT/HCPCS: 36415; 73660; 81003; 84550; 85652; 86140

== ENCOUNTER 2023-11-22 16:43 | Emergency (ER) | payer MEDICARE, SELFPAY ==
[2023-11-22 16:50] VITALS: BP 130/72; PULSE 71; RESP 16; TEMP 36.4; O2SAT 100
--- NOTE | 2023-11-22 17:02 | ED.GENADULT ---
HPI - General Adult General Stated complaint: Knee Pain History of Present Illness HPI narrative: 78-year-old female presents to [facility] with complaints right knee pain that started few days ago. Patient states has been seeing chiropractor for pain and was told to, have an evaluation and probable MRI, to rule out DVT. Patient denies injury. Patient is taking ibuprofen for pain. Related Data Home Medications Medication Instructions Recorded Confirmed topiramate 50 mg tablet (Topamax) 50 mg PO BID 07/07/19 09/10/23 calcium polycarbophil 625 mg 1,250 mg PO BID 09/13/19 09/10/23 tablet (FiberCon) amlodipine 5 mg tablet 5 mg PO DAILY 06/22/22 09/10/23 aspirin 81 mg chewable tablet 81 mg PO DAILY 06/22/22 09/10/23 prenat.vits,asya,wcj-gmgb-ykiad 1 tablet PO DAILY 06/22/22 09/10/23 mecobalamin (vitamin B12) 1,000 1,000 mcg PO DAILY 04/05/23 09/10/23 mcg chewable tablet azelastine 137 mcg (0.1 %) nasal 1 spray intranasal Q12H 05/24/23 09/10/23 spray aerosol bumetanide 1 mg tablet 2 mg PO DAILY 05/24/23 09/10/23 melatonin 10 mg chewable tablet 10 mg PO 05/24/23 09/10/23 Allergies Allergy/AdvReac Type Severity Reaction Status Date / Time meperidine Allergy Unknown Vomiting Verified 09/10/23 11:41 morphine Allergy Unknown Itching Verified 09/10/23 11:41 Hbiojrg-BAY-CqZ Reductase Allergy Unknown Muscle Pain Verified 09/10/23 11:41 Inhibitor [Opmttbd-Omb-Tua Reductase Inhibitor] VICYL SUTURES Allergy Unknown ABCESS Uncoded 09/10/23 11:41 Review of Systems Constitutional: Constitutional: Reports no additional constitutional complaints, Denies body ache(s), Denies chills, Denies fatigue, Denies fever(s), Denies frequent falls, Denies headache(s), Denies poor appetite and Denies weakness ENT: Reports system reviewed and no additional complaints, except as documented Cardiovascular: Cardiovascular: Reports no additional cardiovascular complaints, Denies chest pain, Denies chest pain at rest, Denies chest pain with activity, Denies syncope, Denies rapid heart rate, Denies pedal edema, Denies edema, Denies irregular heart rhythm, Reports claudication, Denies leg ulcers and Denies leg edema Respiratory: Respiratory: Denies chest congestion, Denies cough, Denies dyspnea and Denies dyspnea on exertion Musculoskeletal: Musculoskeletal: Denies abnormal gait, Denies back pain, Denies myalgias, Denies atrophy, Denies arthralgias, Denies joint swelling, Denies limited range of motion, Denies muscle cramps and Denies muscle weakness Comments: Pain in right PMFSH Past Medical History Medical History Anemia Anterior communicating artery aneurysm Anxiety Benign essential hypertension Cellulitis Chronic pruritus Cognitive dysfunction CVA (cerebral vascular accident) had cardiac cath causing plaque embolism Encounter for routine adult health examination with abnormal findings Essential (primary) hypertension Familial hypercholesterolemia GERD (gastroesophageal reflux disease) Hyperlipidemia Hypertension Hypervitaminosis D Intractable headache Lumbar back pain with radiculopathy affecting right lower extremity Microvascular angina Mixed hyperlipidemia Seborrheic dermatitis Statin intolerance Syncope Vitamin D deficiency Surgical History Surgical History History of bladder surgery times 7 from [id number] History of bunionectomy 1980 right one in 1998 History of cerebral aneurysm repair times 2 2019 History of cholecystectomy (~2002) History of foot surgery right in 2013 left in 2015 History of hysterectomy total 1979 History of laparoscopic cholecystectomy 2003 History of repair of hip joint 2006 History of rotator cuff surgery left in 1997 right 1999 History of spinal surgery 2017 History of surgery on lower extremity (~1977) Tail bone removal Family History Family
== END 2023-11-22 17:18 | disposition home or self-care (01) ==
PROVIDERS: Emergency Provider Registered Nurse; PCP Internal Medicine
DX: M25.561 Pain in right knee (principal); I10 Essential (primary) hypertension; Z86.73 Personal history of transient ischemic attack (TIA), and cerebral infarction without residual deficits; E78.01 Familial hypercholesterolemia; K21.9 Gastro-esophageal reflux disease without esophagitis; E78.2 Mixed hyperlipidemia; Z79.82 Long term (current) use of aspirin
CPT/HCPCS: 99212; G0463

== ENCOUNTER 2023-11-23 15:26 | Outpatient (CLI) | payer MEDICARE, SELFPAY ==
--- NOTE | ~2023-11-23 | US_ITS ---
US venous doppler LE RT DATE: 11/23/2023 16:18 INDICATION: Edema of the right lower extremity TECHNIQUE: Real-time and color flow imaging and Doppler analysis of the veins of the right lower extr emity COMPARISON: None FINDINGS: The greater saphenous vein is patent. There is spontaneous and phasic flow and normal augme ntation and color flow signal and normal compression of the deep veins of the right lower extremity. IMPRESSION: No evidence of deep venous thrombosis of right lower extremity Reviewed, dictated and finalized at [facility] Reviewed, dictated and finalized at [facility].
== END 2023-11-23 15:27 | disposition home or self-care (01) ==
LOC: ANHIMG 15:29
PROVIDERS: PCP Internal Medicine; Visit Provider Internal Medicine
DX: R09.89 Other specified symptoms and signs involving the circulatory and respiratory systems (principal); M25.561 Pain in right knee; R60.0 Localized edema
CPT/HCPCS: 93971

== ENCOUNTER 2023-11-24 11:19 | Outpatient (CLI) | payer MEDICARE, SELFPAY | END 2023-11-24 11:20 | disposition home or self-care (01) | PROVIDERS: PCP Internal Medicine; Visit Provider Internal Medicine | DX: M25.561 Pain in right knee (principal) | CPT/HCPCS: 73564 ==

== ENCOUNTER 2023-12-13 13:11 | Outpatient (CLI) | payer MEDICARE, SELFPAY ==
--- NOTE | ~2023-12-13 | MR_ITS ---
MRI of the right knee Clinical history: Pain Technique: Coronal proton density and proton density-weighted images, sagittal proton-density and T2 fat-sat images, and axial proton-density fat-saturated images were acquired. Findings: Anterior and posterior cruciate ligaments are intact. Medial collateral ligament and the la teral collateral ligament complex are intact. Popliteus tendon is intact. Suspected focal tearing of the anterior horn lateral meniscus. Medial meniscus is intact. There is mild diffuse tricompartmental chondral thinning. Bone marrow signals are unremarkable. Extensor mechanism is intact. Minimal joint effusion present. Minimal Mitchell's cyst, with evidence of rupture. Impression: Suspected focal tearing of the anterior horn lateral meniscus. Mild diffuse chondral thinning. Minimal Mitchell's cyst, likely ruptured. Reviewed, dictated and finalized at [facility]. Impression: Suspected focal tearing of the anterior horn lateral meniscus. Mild diffuse chondral thinning. Minimal Mitchell's cyst, likely ruptured.
== END 2023-12-13 13:12 ==
LOC: GOSHIMG 13:13
PROVIDERS: PCP Internal Medicine; Visit Provider Orthopaedic Surgery
DX: M25.561 Pain in right knee (principal)
CPT/HCPCS: 73721

== ENCOUNTER 2023-12-29 12:19 | Outpatient (CLI) | payer MEDICARE, SELFPAY ==
[2023-12-29 13:18] LABS: Anion Gap 8 mmol/L (4-12); Blood Urea Nitrogen 19 mg/dL (7-17); Calcium 9.7 mg/dL (8.4-10.2); Carbon Dioxide 24 mmol/L (22-30); Chloride 104 mmol/L (98-107); Estimated Glomerular Filt Rate > 60; Glucose 96 mg/dL (65-110); Potassium 4.2 mmol/L (3.4-5.0); Sodium 136 mmol/L (137-145)
== END 2023-12-29 12:20 | disposition home or self-care (01) ==
LOC: ANHSURGERY 12:23
PROVIDERS: Anesthesiology; PCP Internal Medicine; Visit Provider Orthopaedic Surgery
DX: Z79.899 Other long term (current) drug therapy (principal); Z01.818 Encounter for other preprocedural examination
CPT/HCPCS: 36415; 80048

== ENCOUNTER 2023-12-31 00:33 | Day surgery (SDC) | payer MEDICARE, SELFPAY ==
[2023-12-28 13:44] VITALS: BMI 25.9
--- NOTE | 2023-12-28 14:00 | PC.NURSE ---
PRE-OP INSTRUCTIONS, PLEASE READ CAREFULLY Report to the Outpatient Waiting Room, entrance under the green pavilion located off [facility], at time _0600_ on date _12/31/23_. Planned Procedure Time: _0730_. Time changes happen often and if your time is changed the preop area will call you the afternoon before. - You and your visitor will be asked to self-screen and do not enter if you have any COVID symptoms. - A mask is optional within the hospital at this time. Patients may have clear liquids (water, carbonated beverages, clear teas, apple juice) until 3 hours prior to surgery (0430 AM) with a maximum of 20 ounces. - No food from midnight until time of surgery Take the following medications with a SIP of water the morning of surgery: _AMLODIPINE, METOPROLOL, SERTRALINE, & ALPRAZOLAM, TIZANIDINE IF NEEDED_ DO NOT STOP ANY OF YOUR OTHER PRESCRIPTION MEDICATIONS PRIOR TO SURGERY ?EXCEPT THE FOLLOWING Medications to discontinue per ANESTHESIA - _MULTIVITAMIN OF TODAY, Date to take last dose 12/28/23_ Please no make-up, nail lao, hairspray, perfume, deodorant, or body powder the day of surgery. No jewelry (including any body piercings) or valuables the day of surgery, leave them at home. Please take a shower or bath the night before, or the morning of, surgery with an antibacterial soap. Wear comfortable, loose fitting clothing. - Jewelry must be removed prior to entering the operating room. Rings and piercings that are not removed may be cut off. - The hospital will not accept responsibility for valuables. - Please leave all valuables, including medications, at home the day of surgery. If you are going home after surgery, a licensed bulk driver must drive you home. - NO public transportation without another adult if you receive anesthesia. - We recommend that an adult stay with you for 24 hours following discharge. - We also recommend that you do not drive, make important decision, drink alcoholic beverages, or take any drugs that were not prescribed by your health care provider for at least 24 hours after your discharge time. Follow any additional instructions given to you from your surgeon. HIBICL[employer] INSTRUCTED If you or anyone in your household have experienced Covid symptoms in the past week, please notify your surgeon or the nurse liaison at the phone number below for possible testing. Telephone instructions given to _PATIENT_and asked if any additional questions and then verbalized understanding. Patient advised to call surgeon office or pre surgery nurse liaison [phone] if any additional questions.
[2023-12-31] VITALS (8 sets, daily range): BP systolic 113–127; BP diastolic 51–63; PULSE 63–70; RESP 10–14; TEMP 36.2–36.4; O2SAT 93–100
[2023-12-31] MEDS: CELECOXIB 200 MG CAPSULE PO (06:45)
[2023-12-31] MEDS: ACETAMINOPHEN 500 MG TABLET 1000 MG PO (06:45)
[2023-12-31] MEDS: LACTATED RINGERS 1,000 ML 30 ML IV CONT (06:45)
[2023-12-31 06:46] LABS: Glucose Point of Care 85 mg/dl (65-105)
--- NOTE | 2023-12-31 06:51 | WPDANESEPPF ---
Anes - Initial Pre Proc Eval Procedure: Operation Date: 12/31/23 07:30 Proposed Procedures p Right Knee Arthroscopy - Tushar Izquierdo MD Date/Time: 12/31/23 06:51 Surgeon: Tushar Izquierdo MD Pre Op Diagnosis: right knee lateral meniscus tear Patient Data Age: 78 Gender: F Height: 1.5 m Weight: 58.18 kg Allergies Allergy/AdvReac Type Severity Reaction Status Date / Time meperidine Allergy Unknown Vomiting Verified 12/31/23 06:58 morphine Allergy Unknown Itching Verified 12/31/23 06:58 Xixxtiw-JDI-KgT Reductase Allergy Unknown Muscle Pain Verified 12/31/23 06:58 Inhibitor [Zixmndd-Zmc-Unl Reductase Inhibitor] VICYL SUTURES Allergy Unknown ABCESS Uncoded 12/31/23 06:58 Home Medications Medication Instructions Recorded Confirmed Type topiramate 50 mg tablet (Topamax) 50 mg PO BID 07/07/19 12/28/23 History calcium polycarbophil 625 mg 1,250 mg PO BID 09/13/19 12/28/23 History tablet (FiberCon) amlodipine 5 mg tablet 5 mg PO DAILY 06/22/22 12/28/23 History aspirin 81 mg chewable tablet 81 mg PO DAILY 06/22/22 12/28/23 History prenat.vits,asya,nii-wjnj-wwpys 1 tablet PO DAILY 06/22/22 12/28/23 History mecobalamin (vitamin B12) 1,000 1,000 mcg PO DAILY 04/05/23 12/28/23 History mcg chewable tablet azelastine 137 mcg (0.1 %) nasal 1 spray intranasal Q12H PRN 05/24/23 12/28/23 History spray aerosol Congestion melatonin 10 mg chewable tablet 10 mg PO DAILY 05/24/23 12/28/23 History tizanidine 2 mg tablet 2 mg PO TID PRN muscle spasticity 06/02/23 12/28/23 Rx #50 tabs alprazolam 0.25 mg tablet 0.25 mg PO BID PRN anxiety #50 tabs 09/10/23 12/28/23 Rx sertraline 50 mg tablet 50 mg PO DAILY #90 tabs 09/10/23 12/28/23 Rx evolocumab 140 mg/mL subcutaneous See Rx Instructions .Route 10/01/23 12/28/23 Rx pen injector (Carol Lockwood) .COMPLEX #2 mL omeprazole 40 mg capsule,delayed See Rx Instructions .Route 10/11/23 12/28/23 Rx release .COMPLEX #180 caps potassium chloride 10 mEq See Rx Instructions .Route 10/25/23 12/28/23 Rx tablet,extended release .COMPLEX #90 tabs metoprolol tartrate 50 mg tablet See Rx Instructions .Route 12/08/23 12/28/23 Rx .COMPLEX #180 tabs bumetanide 1 mg tablet See Rx Instructions .Route 12/15/23 12/28/23 Rx .COMPLEX #180 tabs chlorhexidine gluconate 4 % 1 applic topical ONCE #237 mL 12/24/23 12/28/23 Rx topical liquid (Hibiclens) lisinopril 40 mg tablet See Rx Instructions .Route 12/27/23 12/28/23 Rx .COMPLEX #90 tabs Laboratory Tests 12/31/23 06:42 POC Capillary Glucose 85 mg/dl (65-105) Patient hx anesthesia problems: none (Slow to emerge after GA in the past. ) Family hx anesthesia problems: none Results Review: All pre-operative results and documents have been reviewed as part of the pre-operative evaluation. [facility] Past Medical History Medical History Anemia Anterior communicating artery aneurysm Anxiety Benign essential hypertension BMI 27.0-27.9,adult BMI 30.0-30.9,adult BMI 31.0-31.9,adult BMI 32.0-32.9,adult Cellulitis Chronic pruritus Cognitive dysfunction CVA (cerebral vascular accident) had cardiac cath causing plaque embolism Encounter for routine adult health examination with abnormal findings Essential (primary) hypertension Familial hypercholesterolemia GERD (gastroesophageal reflux disease) Hyperlipidemia Hypertension Hypervitaminosis D Intractable headache Lumbar back pain with radiculopathy affecting right lower extremity Microvascular angina Mixed hyperlipidemia Seborrheic dermatitis Statin intolerance Syncope Torn meniscus Vitamin D deficiency Surgical History Surgical History History of bladder surgery times 7 from [id number] History of bunionectomy 1980 right one in 1998 History of cerebral aneurysm repair times 2 2019 History of cholecystectomy (~2002
--- NOTE | 2023-12-31 07:16 | WPDHPUPDATE1 ---
History and Physical Update Update Date/Time: 12/31/23 07:16 History and Physical has been reviewed, including an updated exam of the patient. There are NO changes in the patient's condition. Risks, benefits, and alternatives have been discussed and questions answered. Patient agrees to proceed with procedure.
--- NOTE | 2023-12-31 07:18 | WPDHPUPDATE1 ---
History and Physical Update Update Date/Time: 12/31/23 07:18 History and Physical has been reviewed, including an updated exam of the patient. There are NO changes in the patient's condition. Risks, benefits, and alternatives have been discussed and questions answered. Patient agrees to proceed with procedure.PLAN FOR RIGHT KNEE SCOPE
[2023-12-31] MEDS: ceFAZolin 2 GM/D5W 50 ML 2 GM/50 ML BAG IVPB (07:24)
[2023-12-31] MEDS: BUPivacaine HCL 0.5% 10 ML AMP 30 ML INFILTRATE (07:52)
--- NOTE | 2023-12-31 08:25 | P.OP_ITS ---
Procedure Note - Detailed Date of Procedure 12/31/23 Pre-op Diagnosis right knee lateral meniscus tear Post-op Diagnosis Same Procedure Performed RIGHT KNEE SCOPE Surgeon Tushar Izquierdo MD Anesthesia General Description of Procedure PATIENT WAS TAKEN TO THE OR. RIGHT LEG WAS PREPPED AND DRAPED STERILE. TROCARS WERE PLACED IN THE USUAL FASHION. CAMERA WAS INTRODUCED. THERE WAS MINIMAL CHONDROMALACIA TO THE PATELLA FEMORAL JOINT. THERE WAS A LOT OF SYNOVITIS IN ALL COMPARTMENTS. THE MEDIAL COMPARTMENT SHOWED CHONDROMALACIA TO THE MEDIAL FEMORAL CONDYLE. A SHAVER WAS USED TO PREFORM A CHONDROPLASTY. THERE WAS A SMALL COMPLEX MEDIAL MENISCUS TEAR. THE TEAR WAS RESECTED WITH A BITER AND A SHAVER DOWN TO A SMOOTH BASE. THE ACL WAS INTACT. THE LATERAL MENISCUS WAS TORN. THERE WAS A COMPLEX TEAR FROM THE ANTERIOR HORN TO THE POSTERIOR HORN. A SHAVER AND A BITER WERE USED TO CONTOUR THE LATERAL MENISCUS TEAR TO A SMOOTHE BASE. THE LATERAL COMPARTMENT HAD MINIMAL CHONDROMALACIA. CHONDROPLASTY WAS PREFORMED. A SYNOVECTOMY WAS PREFORMED WELL. THE PATELLO FEMORAL JOINT UNDERWENT CHONDROPLASTY. SYNOVECTOMY WAS PREFORMED IN THE SUPERIOR MEDIAL COMPARTMENT. THE PATELLA TRACKED WELL WITHIN THE TROCHLEA. THE WOUNDS WERE APPROXIMATED WITH 4.0 NYLON. STERILE DRESSING WAS APPLIED. PATIENT WAS E XTUBATED. Estimated Blood Loss 5 Complications No immediate complications Condition Stable Disposition PACU
[2023-12-31 08:38] LABS: Glucose Point of Care 92 mg/dl (65-105)
[2023-12-31] MEDS: oxyCODONE HCL (*CRX) 5 MG TAB IR PO (09:32)
== END 2023-12-31 10:24 | disposition home or self-care (01) ==
PROVIDERS: PCP Internal Medicine; Visit Provider Orthopaedic Surgery
PROC: (CPT 29870; principal; 2023-12-31 07:30)
DX: M23.361 Other meniscus derangements, other lateral meniscus, right knee (principal); M23.331 Other meniscus derangements, other medial meniscus, right knee; M22.41 Chondromalacia patellae, right knee; M65.861 Other synovitis and tenosynovitis, right lower leg; I10 Essential (primary) hypertension; E78.01 Familial hypercholesterolemia; E55.9 Vitamin D deficiency, unspecified; K21.9 Gastro-esophageal reflux disease without esophagitis; Z86.73 Personal history of transient ischemic attack (TIA), and cerebral infarction without residual deficits; F41.9 Anxiety disorder, unspecified
CPT/HCPCS: 29880; 36415; 80048; 82948; A9270; J0690; J2405; J2704; J3010; J7120

== ENCOUNTER 2024-02-15 12:30 | Outpatient (RCR) | payer MEDICARE, SELFPAY ==
--- NOTE | 2024-01-21 13:22 | OPREHPOC ---
Outpatient Therapy Plan of Care This is a Multidisciplinary Plan of Care that may contain components documented by all disciplines (PT, OT, and ST.) PT Problem 1 PT Problem #1 Knowledge Deficit PT Goal 1 Goal [place] with HEP PT Problem 2 PT Problem #2 Edema PT Goal 1 Goal Patient will demonstrate 1 cm+ reduction in joint line edema Target Visit 4 PT Problem 3 PT Problem #3 Impaired Range of Motion PT Goal 1 Goal Achieve terminal k nee extension on R leg Target Visit 8 PT Goal 2 Goal Improve R knee flexion to 125+ degrees Target Visit 8 PT Problem 4 PT Problem #4 Impaired Gait PT Goal 1 Goal Ambulate with even stride length bilaterally Target Visit 8 PT Goal 2 Goal Demonstrate ability to reciprocally climb and descend stairs Target Visit 8
--- NOTE | 2024-01-21 13:22 | PTOPEVAL1 ---
Assessment and note entered by Abimael Bradley, PT Evaluation Information Assessment Status Evaluation Diagnosis Right knee arthroscopy, Right knee pain Onset 12/31/23 Subjective Information Reports that she is currently feeling achy. Still feels she is having some swelling that is inhibiting her. Continues to feel slightly warmer than her other knee. She is unable to walk as far as she would like and would like to take her dog back out for walks. She has to do 1 step at a time both up and down. Does not feel that her leg is weak, but feels tight with activity and needs resting frequently. Reported Pain Level Pain Score 0: Self Report Assessment PT Clinical Summary Patient presents with knee swelling, weakness, and loss of full functional motion at this time. Will benefit from skilled therapy to address these deficits to improve gait, functional mobility, and ADL performance throughout recovery from knee arthroscopy. Plan of Care Interventions Gait Training,Hot Pack/Cold Pack,Manual Therapy, Neuro Re-education,Therapeutic Activities, Therapeutic Exercise PT Services Indicated Yes Treatment Frequency and 2x/week for 8 visits Duration These treatments will address the objective and functional deficits as defined above. The patient will be advanced safely and appropriately in order for the patient to progress towards his/her prior level of function. Additional exercises will be introduced and as well as a comprehensive home exercise program upon discharge, if needed, ?to ensure carryover of functional gains achieved in the clinic. This treatment plan has been reviewed and agreement upon by the patient.
--- NOTE | 2024-02-15 13:25 | OPREHPOC ---
Outpatient Therapy Plan of Care This is a Multidisciplinary Plan of Care that may contain components documented by all disciplines (PT, OT, and ST.) PT Problem 1 PT Problem #1 Knowledge Deficit PT Goal 1 Goal [place] with HEP Progress Met PT Problem 2 PT Problem #2 Edema PT Goal 1 Goal Patient will demonstrate 1 cm+ reduction in joint line edema Target Visit 4 Progress Met PT Problem 3 PT Problem #3 Impaired Range of Motion PT Goal 1 Goal Achieve terminal k nee extension on R leg Target Visit 8 Progress Met PT Goal 2 Goal Improve R knee flexion to 125+ degrees Target Visit 8 Progress Met PT Problem 4 PT Problem #4 Impaired Gait PT Goal 1 Goal Ambulate with even stride length bilaterally Target Visit 8 Progress Met PT Goal 2 Goal Demonstrate ability to reciprocally climb and descend stairs Target Visit 8 Progress Met
--- NOTE | 2024-02-15 13:25 | PTOPDC ---
Assessment and note entered by Abimael Bradley, PT Evaluation Information Assessment Status Discharge Diagnosis Right knee arthroscopy, Right knee pain Onset 12/31/23 Subjective Information Reports that she is still getting a little catching on the front of the knee but overall is seeing some improvement in pain and gait cycle. Feels her range is fairly good and she can walk as far as she needs to to get things done. Would like to walk a little further for exercise. Assessment PT Clinical Summary Patient has met all goals for therapy at this time . Objectively she has seen great improvement in ROM, swelling, and functional activity. Gait is even and controlled. No concerns for discharge at this time and patient is suitable for discharge to [facility]. Plan of Care PT Services Indicated D/C to HEP
== END 2024-02-17 13:00 | disposition home or self-care (01) ==
LOC: ANHGOSHPT 12:30
PROVIDERS: PCP Internal Medicine; Visit Provider Orthopaedic Surgery
DX: S89.91XD Unspecified injury of right lower leg, subsequent encounter (principal); M17.11 Unilateral primary osteoarthritis, right knee; S83.289D Other tear of lateral meniscus, current injury, unspecified knee, subsequent encounter
CPT/HCPCS: 97016; 97110; 97140; 97161; 97530

== ENCOUNTER 2024-03-05 12:29 | Observation (INO) | payer MEDICARE, SELFPAY ==
[2024-03-05] VITALS (12 sets, daily range): BP systolic 97–112; BP diastolic 42–71; PULSE 53–105; RESP 18–33; TEMP 36.4–38.3; O2SAT 83–99; BMI 29.1
--- NOTE | ~2024-03-05 | MR_ITS ---
MR brain/brain stem wo con Ordering provider: Natalie Price APRN History: 79 years Female with . rule out stroke . Comparison: CT head performed yesterday. Technique: MRI brain was performed without contrast. FINDINGS: BONES: The right frontal postoperative changes. CRANIOCERVICAL JUNCTION: normal. PITUITARY: Partial empty sella turcica. MAJOR INTRACRANIAL VESSELS: Normal flow void. OPTIC NERVES AND CRANIAL NERVES VII AND VIII COMPLEXES: Grossly normal. BRAIN PARENCHYMA AND CSF SPACES: Susceptibility artifacts are seen in the right frontal lobe. No visi ble white matter disease. Right frontal encephalomalacia. The brainstem and cerebellum are normal. N o acute or chronic intracranial hemorrhage. No extra axial fluid collections. Diffusion weighted and ADC mapping images reveal no recent ischemia. No midline shift or mass effect. PARANASAL SINUSES: Bilateral ethmoid sinus disease. MASTOIDS: Normal SUPERFICIAL/SURROUNDING SOFT TISSUES: Normal. IMPRESSION: 1. No evidence of acute intracranial process. 2. Postoperative changes in the right frontal lobe and right frontal bone. The area of the suprasell ar cisterns cannot be properly evaluated due to metallic artifacts. Reviewed, dictated and finalized at location A. IMPRESSION: 1. No evidence of acute intracranial process. 2. Postoperative changes in the right frontal lobe and right frontal bone. The area of the suprasellar cisterns cannot be properly evaluated due to metallic artifacts.
--- NOTE | ~2024-03-05 | CT_ITS ---
EXAMINATION: CTA chest PE abdomen pel DATE: 03/05/2024 16:56 INDICATION: Sepsis. Hypoxia. TECHNIQUE: Computed tomography angiography (CTA) of the chest was performed with 100 mL Omnipaque-350 intravenous contrast timed to evaluate the pulmonary arteries. Coronal maximum intensity projection 3D-reconstructions were created by the technologist. Computed tomography (CT) of the abdomen and pelv is was performed with intravenous contrast. Automated exposure control and iterative reconstruction t echnique were employed. The dose-length product was 1018.21 mGy-cm. COMPARISON: CT abdomen and pelvis 05/20/21 FINDINGS: CTA chest: There is moderate dependent atelectasis bilaterally. No pleural effusion. The heart size i s normal. No pericardial effusion. There is no pulmonary embolus. CT abdomen and pelvis: The liver is normal. There are changes of cholecystectomy. The common duct is dilated to 12 mm without change. The spleen, pancreas, adrenal glands, and left kidney are normal. Th ere is a 14 mm cyst in right kidney. There is diverticulosis of the colon without evidence of diverti culitis. There are no dilated loops of bowel. The appendix is not visualized. Aortic atherosclerosis is noted. There is prominent fat in the inguinal canals that may be hernias. There is moderate thorac ic spondylosis. There are changes of anterior and posterior fusion procedures at L4-L5. IMPRESSION: 1. No pulmonary embolus. Reviewed, dictated and finalized at location E. IMPRESSION: 1. No pulmonary embolus.
--- NOTE | ~2024-03-05 | XR_ITS ---
EXAMINATION: XR chest 1V portable DATE: 03/05/2024 15:34 INDICATION: Altered mental status. TECHNIQUE: A single frontal view of the chest was obtained. COMPARISON: Chest 2 views 02/23/2022 FINDINGS: There is marked elevation of right hemidiaphragm. There is mild atelectasis in right perihi lar region. No pleural effusion or pneumothorax. The heart size is normal. There are changes of anter ior fusion procedure in cervical spine. Surgical clips in the right upper quadrant are likely from ch olecystectomy. IMPRESSION: 1. Marked elevation of right hemidiaphragm with mild atelectasis in right perihilar region. Reviewed, dictated and finalized at location E. IMPRESSION: 1. Marked elevation of right hemidiaphragm with mild atelectasis in right perih ilar region.
--- NOTE | ~2024-03-05 | CT_ITS ---
EXAMINATION: CT brain wo con DATE: 03/05/2024 13:25 INDICATION: Altered mental status TECHNIQUE: Computed tomography (CT) of the head was performed without intravenous contrast. Sagittal and coronal reconstructions were performed. The mA was adjusted according to patient size. Iterative reconstruction technique was employed. The dose-length product was 529.67 mGy-cm. COMPARISON: head CT dated 09/30/2018 FINDINGS: Postoperative change of prior right frontotemporal craniotomy with plate and screw fixation. Aneurysm coils in the region of the previously seen aneurysm at the distal right internal carotid artery and aneurysm clip at the site of a previously seen aneurysm at the anterior to indicating artery. There i s a region of encephalomalacia in the anterior right frontal lobe most likely sequela prior infarct w ith differential including trauma or surgery. No acute intracranial hemorrhage, acute infarction or a bnormal extra axial fluid collection. There is mild scattered white matter hypoattenuation consistent with chronic small vessel ischemic di sease. Ventricles are normal and symmetric. No mass/mass effect. Changes of bilateral intraocular le ns replacement. The orbits and mastoid air cells are normal. The visualized paranasal sinuses are marcel ar. There is sclerotic wall thickening of the left maxillary sinus likely sequela of chronic sinusiti s. IMPRESSION: 1. Small region of subtle malacia the anterosuperior right frontal lobe which could represent sequela prior infarct, trauma or surgery. No acute intracranial process. 2. Postoperative change of prior right frontotemporal craniotomy with right-sided mild aneurysm coili ng and aneurysm clipping likely for treatment of previously noted aneurysms of the distal right inter nal carotid artery and anterior communicating artery respectively. Reviewed, dictated and finalized at location A. IMPRESSION: 1. Small region of subtle malacia the anterosuperior right frontal lobe which c ould represent sequela prior infarct, trauma or surgery. No acute intracranial process. 2. Postoperative change of prior right frontotemporal craniotomy with right-candy ed mild aneurysm coiling and aneurysm clipping likely for treatment of previous ly noted aneurysms of the distal right internal carotid artery and anterior com municating artery respectively.
--- NOTE | 2024-03-05 12:41 | ECG_ITS ---
Test Date: 2024-03-05 12:37:51 Measurements Intervals [place] Rate: 103 P: -11 TX: 101 QRS: 11 QRSD: 90 T: 28 QT: 372 QTc: 489 Interpretive Statements SINUS TACHYCARDIA WITH SHORT TX INTERVAL ABNORMAL RHYTHM ECG No previous ECG available for comparison Electronically Signed On 03-05-2024 16:18:46 CDT by Beto Johnson M.D.
--- NOTE | 2024-03-05 13:04 | ED.AMS ---
HPI - Altered Mental Status General Chief Complaint: Altered Mental Status Stated Complaint: AMS Time Seen by Provider: 03/05/24 12:40 History of Present Illness HPI narrative: Patient is 79-year-old female who presents to the emergency department this afternoon due to concern for increased lethargy. Patient went to bed yesterday and took her nightly Xanax. Prior to this patient did a lot of yard work outside yesterday. Has been tried to wake the patient up this morning and she was difficult to arouse and this was concerning for him. then counted at the Xanax pills from the date that they will prescribe and noticed that not many were missing and the quantity that was missing is appropriate with how much she the patient usually takes. Patient then decided to bring the patient to the ED for further evaluation. Upon arrival to our emergency department patient is answering all of our questions appropriately, she does appear drowsy / sleepy but is following all of my commands and responding appropriately. Denies any symptoms or concerns at this time. Related Data Home Medications Medication Instructions Recorded Confirmed topiramate 50 mg tablet (Topamax) 50 mg PO BID 07/07/19 02/21/24 calcium polycarbophil 625 mg 1,250 mg PO BID 09/13/19 02/21/24 tablet (FiberCon) amlodipine 5 mg tablet 5 mg PO DAILY 06/22/22 02/21/24 aspirin 81 mg chewable tablet 81 mg PO DAILY 06/22/22 02/21/24 prenat.vits,asya,aqt-tlml-bgoxq 1 tablet PO DAILY 06/22/22 02/21/24 mecobalamin (vitamin B12) 1,000 1,000 mcg PO DAILY 04/05/23 02/21/24 mcg chewable tablet azelastine 137 mcg (0.1 %) nasal 1 spray intranasal Q12H PRN 05/24/23 02/21/24 spray aerosol Congestion melatonin 10 mg chewable tablet 10 mg PO DAILY 05/24/23 02/21/24 Allergies Allergy/AdvReac Type Severity Reaction Status Date / Time meperidine Allergy Unknown Vomiting Verified 01/10/24 14:59 morphine Allergy Unknown Itching Verified 01/10/24 14:59 Qfcdztn-DJB-EaF Reductase Allergy Unknown Muscle Pain Verified 01/10/24 14:59 Inhibitor [Yhljtyv-Otn-Iyb Reductase Inhibitor] VICYL SUTURES Allergy Unknown ABCESS Uncoded 01/10/24 14:59 Review of Systems Review of Systems: All systems are reviewed and are negative unless stated otherwise in the HPI. [facility] Past Medical History Medical History Anemia Anterior communicating artery aneurysm Anxiety Benign essential hypertension BMI 27.0-27.9,adult BMI 30.0-30.9,adult BMI 31.0-31.9,adult BMI 32.0-32.9,adult Cellulitis Chronic pruritus Cognitive dysfunction CVA (cerebral vascular accident) had cardiac cath causing plaque embolism Encounter for routine adult health examination with abnormal findings Essential (primary) hypertension [place] Familial hypercholesterolemia GERD (gastroesophageal reflux disease) Hyperlipidemia Hypertension Hypervitaminosis D Intractable headache Lumbar back pain with radiculopathy affecting right lower extremity Microvascular angina Mixed hyperlipidemia Seborrheic dermatitis Statin intolerance Syncope Torn meniscus Vitamin D deficiency Surgical History Surgical History History of bladder surgery times 7 from [id number] History of bunionectomy 1980 right one in 1998 History of cerebral aneurysm repair times 2 2019 History of cholecystectomy (~2002) History of foot surgery right in 2013 left in 2015 History of hysterectomy total 1979 History of laparoscopic cholecystectomy 2003 History of repair of hip joint 2006 History of rotator cuff surgery left in 1997 right 1999 History of spinal surgery 2017 History of surgery on lower extremity (~1977) Tail bone removal Family History Family History Father Diabetes mellitus Hypertension Family history of malignant neoplasm Family history of
[2024-03-05 13:10] LABS: Basophils Percent Auto 0.3 % (0.2-1.2); Eosinophils Percent Auto 0.1 % (0-4.4); Hematocrit 36.5 % (37.0-47.0); Hemoglobin 12.3 g/dL (12.0-15.0); Immature Granulocyte Absolute 0.04 K/mm3 (0.00-0.031); Immature Granulocyte Percent A 0.4 % (0-0.5); Lymphocytes Absolute Auto 1.01 K/mm3 (0.9-3.2); Lymphocytes Percent Auto 9.4 % (18.3-44.2); Mean Corpuscular HGB Conc 33.7 g/dl (32-36); Mean Corpuscular Volume 97.9 fl (80-100); Mean Platelet Volume 9.9 fl (7.4-10.4); Monocytes Absolute Auto 0.5 K/mm3 (0.1-0.6); Monocytes Percent Auto 4.5 % (2.6-8.5); Neutrophils Absolute Auto 9.1 K/mm3 (1.3-6.7); Neutrophils Percent Auto 85.3 % (45.5-73.1); Platelet Count Result 190 k/mm3 (150-375); Red Blood Count 3.73 M/mm3 (4.2-5.4); Red Cell Distribution Width 12.9 % (11.5-14.5); White Blood Count 10.7 K/mm3 (4.5-10.0)
[2024-03-05 13:20] LABS: Prothrombin Time 13.2 Seconds (11.1-14.7)
[2024-03-05 13:21] LABS: Partial Thromboplastin Time 26.5 Seconds (22.3-36.8)
[2024-03-05 13:24] LABS: Alanine Aminotransferase 14 U/L (6-35); Albumin Level 4.4 g/dL (3.5-5.1); Alkaline Phosphatase 94 U/L (38-126); Anion Gap 11 mmol/L (4-12); Aspartate Amino Transferase 30 U/L (14-36); Blood Urea Nitrogen 23 mg/dL (7-17); Calcium 8.9 mg/dL (8.4-10.2); Carbon Dioxide 22 mmol/L (22-30); Chloride 103 mmol/L (98-107); Estimated Glomerular Filt Rate 54; Glucose 94 mg/dL (65-110); Potassium 4.3 mmol/L (3.4-5.0); Sodium 136 mmol/L (137-145)
[2024-03-05 13:33] LABS: Creatine Kinase 74 U/L (30-135)
[2024-03-05] MEDS: SODIUM CHLORIDE 0.9% IV 1,000 ML 999 ML IV CONT ×2 (13:44→16:16)
[2024-03-05 14:08] LABS: Appearance Urine Clear (Clear); Bilirubin Urine Negative (Negative); Blood Urine Negative (Negative); Color Urine Yellow (Yellow); Glucose Urine UA Negative (Negative); Ketones Urine Negative (Negative); Leukocyte Esterase Ur Negative LEU/UL (Negative); Nitrate Urine Negative (Negative); Protein Urine Negative (Negative); Specific Grav Ur 1.015 (1.001-1.035); Urobilinogen Urine 0.2 mg/dL (<2.0)
[2024-03-05 14:10] LABS: Add Urine Microscopic? NO
[2024-03-05 14:11] LABS: Amphetamine Screen Urine Negative (Negative); Barbiturate Screen Urine Negative (Negative); Benzodiazepines Screen Urine Positive (Negative); Cannabinoid Screen Urine Negative (Negative); Cocaine Screen Urine Negative (Negative); Methadone Screen Urine Negative (Negative); Opiate Screen Urine Negative (Negative); Phencyclidine Screen Urine Negative (Negative)
[2024-03-05 16:03] LABS: Influenza A QL RT-PCR Negative (Negative); Influenza B QL RT-PCR Negative (Negative); RSV RNA, RT-PCR Negative (Negative); SARS-CoV-2 RNA PCR Negative (Negative)
[2024-03-05] MEDS: cefTRIAXone 2 GM/NS 100 ML 2 GM/100 ML BAG IVPB (17:56)
[2024-03-05] MEDS: AMPICILLIN 2 GM/NS 100 ML 2 GM/100 ML BAG IVPB (18:07)
[2024-03-05] MEDS: VANCOMYCIN 1,500 MG/NS 500 ML BAG 250 MG IVPB (18:09)
--- NOTE | 2024-03-05 18:53 | PC.NURSE ---
This patient, Shyann Gallegos, was admitted to 2 Medical Room 244-. Patient/family oriented to hospital policies and general routines including ID bracelet, bed and alarms, visiting hours, pain management, procedures, bathroom and other care routines, personal items, smoking policy, room service/diet, and visiting hours. Information on how to activate the Rapid Response Team has been discussed. Patient/Family are encouraged to report perceived risks to care and to ask questions if they do not understand what they are told or what they should do.
--- NOTE | 2024-03-05 22:44 | PM.IMHP ---
H&P: HPI History of Present Illness Date/Time: 03/05/24 22:30 Chief Complaint: Altered mental status. 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 The patient is somnolent and provides little history. Her provides the majority of the following information. 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 Around noon time she went inside and told her she was going to take a nap as he was hot and tired. She was still napping a couple of hours later when he left to take a friend to the airport. She woke up briefly for him when he told her that they had plans to go out to dinner and that she needed to get up to get ready. When he returned home she had showered, gotten dressed, and done her hair. Plans were to go out to dinner however she told him that she was still quite sleepy and that she felt she needed to lay down for a bit longer. This was at about 19:30 and checked on her several times thereafter and she was still sleeping normally so he allowed her to sleep throughout the night and did not wake her up to go to dinner. At about 09:30 he tried to get her up for the day but she was minimally responsive and EMS was summoned. She has not had any recent illnesses and she did not have any specific complaints recently aside from the fatigue. does note that he found an open bottle of Xanax on the kitchen counter with 6 or 7 pills lying nearby. The bottle at self was empty. He reports that it was filled mid January and she can take the Xanax twice a day as needed for anxiety however he does not believe that she take that daily. He is concerned that she may have taken an extra dose or 2 of Xanax due to her short-term memory loss. He does not think that she would have intentionally taken extra medication. In the ED: She was on 2 L nasal cannula on arrival to the ED as her SpO2 was 89% on room air when EMS arrived. Blood pressures have been stable. Temperature was as high as 100.9? F. labs were significant for WBC count of 10.0, hemoglobin 12.3, sodium 136, BUN 23, creatinine 1.00, lactic acid 2.0. Urinalysis was unremarkable. Urine drug screen was positive for benzodiazepines. She was negative for influenza, RSV, and COVID. Head CT showed small region of subtle malacia an anterosuperior right frontal lobe which could represent sequela from prior infarct, trauma, or surgery. Postoperative changes were noted from prior aneurysm coiling and clipping. No acute intracranial process was noted. CT of the chest, abdomen, and pelvis showed no evidence of pulmonary embolism or acute findings. She was given a normal saline bolus and doses of ampicillin, ceftriaxone, and vancomycin for possible meningitis and she is being admitted in this setting for close monitoring and further workup. At the time my evaluation she is somnolent but does arouse to name. She follows simple commands and answers some questions briefly. She is aware that she is in the hospital. She does not remember taking the Xanax yesterday. She denies headache, neck ache, vision changes, chest pain, and abdominal pain. She denies feelings of shortness of breath. Review of Systems Review of Systems: Unable to obtain accurately given her somnolence. [facility] Past Medical History Medical History (Updated 03/05/24 @ 23:01 by Agatha Freedman PA-C) Anemia Anterior communicating artery aneurysm Anxiety Benign essential hypertension BMI 27.0-27.9,adult BMI 30.0-30.9,adult BMI 31.0-31.9,adult BMI 32.0-32.9,adult Cellulitis Chronic pruritus Cognitive dysfunction CVA (cerebral vascular accident) had ca
[2024-03-05 23:08] LABS: Alveolar/Arterial O2 Gradient 188.3 mmHg; Base Excess ABG -1.5 mEq/l (+/-2.0); Carboxyhemoglobin 0.1 % THb (0-2.0); Fractional Inspired Oxygen 40 %; HCO3 ABG 21.7 mEq/l (22.0-26.0); Oxygen Content ABG 14.2 %vol (16.0-22.0); Oxygen Saturation ABG 92.9 % (95.0-100.0); Oxyhemoglobin 92.3 % THb (90.0-100.0); PCO2 ABG 31.3 mmHg (35.0-45.0); PO2 ABG 60.9 mmHg (80.0-100.0); PO2 FiO2 Ratio Arterial Blood 1.52 %; Reduced Hemoglobin 7.6 %THb (0-5.0); Total Hemoglobin 10.9 g/dL (12.0-18.0); pH ABG 7.458 (7.350-7.450)
[2024-03-05 23:09] LABS: Device NASAL CANNULA; Modified Allen's Test Pass; Site Drawn RIGHT RADIAL
[2024-03-05] MEDS: NALOXONE HCL 0.4 MG/ML VIAL IV PUSH (23:29)
[2024-03-05] MEDS: LACTATED RINGERS 1,000 ML 75 ML IV CONT (23:30)
[2024-03-06] VITALS (15 sets, daily range): BP systolic 109–149; BP diastolic 50–70; PULSE 78–102; RESP 16–33; TEMP 36.4–36.8; O2SAT 94–99
[2024-03-06] MEDS: AMPICILLIN 2 GM/NS 100 ML 2 GM/100 ML BAG IVPB ×5 (00:16→23:55)
[2024-03-06 02:09] LABS: Ammonia < 9 umol/L (9-30)
[2024-03-06 02:11] LABS: Alanine Aminotransferase 13 U/L (6-35); Albumin Level 3.3 g/dL (3.5-5.1); Alkaline Phosphatase 86 U/L (38-126); Anion Gap 5 mmol/L (4-12); Aspartate Amino Transferase 24 U/L (14-36); Bilirubin,Total 0.8 mg/dL (0.2-1.3); Blood Urea Nitrogen 16 mg/dL (7-17); Calcium 7.9 mg/dL (8.4-10.2); Carbon Dioxide 24 mmol/L (22-30); Chloride 111 mmol/L (98-107); Estimated CRCL calculation 44 ml/min; Estimated Glomerular Filt Rate > 60; Glucose 113 mg/dL (65-110); Magnesium 1.4 mg/dL (1.6-2.3); Potassium 3.4 mmol/L (3.4-5.0); Sodium 140 mmol/L (137-145)
[2024-03-06 02:17] LABS: Acetaminophen < 10 ug/mL (10-30); Salicylate < 1.0 mg/dL (2-20)
[2024-03-06 02:41] LABS: Thyroid Stimulating Hormone Reflex 0.566 uIU/mL (0.465-4.68)
[2024-03-06 02:54] LABS: CRP 21.7 mg/dL (<1.0)
[2024-03-06] MEDS: WATER FOR IRRIGATION, STERILE 500 ML BOTTLE (03:15)
[2024-03-06 04:06] LABS: Procalcitonin 0.8 ng/mL
[2024-03-06] MEDS: cefTRIAXone 2 GM/NS 100 ML 2 GM/100 ML BAG IVPB ×2 (06:33→18:03)
--- NOTE | 2024-03-06 07:26 | P.PNIM_ITS ---
Progress Note: A&P Assessment and Plan (1) Altered mental status: Code(s): R41.82 - Altered mental status, unspecified Status: Acute Assessment and Plan: 03/06/24: * Differential diagnosis may include: possible overdose of Xanax versus meningitis versus postictal state from seizure versus less likely stroke * Continue neuro checks q.4 hours * Showed small region of subtle malacia at the anterior superior right frontal lobe, no acute intracranial process postoperative change prior right frontotemporal craniotomy with right-sided mild aneurysm coiling and aneurysm clipping * Chest/abdomen/pelvis CTA negative for PE * Continue ampicillin, Rocephin, vancomycin for now * Will obtain EEG and will check for lyme disease considering she was out in the garden the day her symptoms started * May consider lumbar puncture to rule out meningitis, initial temperature 100.9?, white 10.0, procalcitonin 0.8, CRP 21.7, uric acid level was 8.5 * MRI of brain and brainstem ordered * Blood glucose 88-103 * Respiratory panel was negative for influenza a and B, COVID, RSV * Urine drug screen was positive for benzodiazepines * Toxicology Tylenol level was less than 10, salicylates <1.0 * TSH 0.566, vitamin B12 902.0 * ABG showed respiratory alkalosis with a pH of 7.58, pCO2 31.3, PO2 60.9, bicarb 21.7 (2) Acute respiratory failure with hypoxia: Code(s): J96.01 - Acute respiratory failure with hypoxia Status: Acute Assessment and Plan: 03/06/24: * likely secondary to somnolence * Initially requiring 5 L nasal cannula, now on 2 L nasal cannula * Continue to wean O2 for sat greater than 92% (3) Urinary retention: Code(s): R33.9 - Retention of urine, unspecified Status: Acute Assessment and Plan: 03/06/24: * Urinary retention, Greater than 600 mL in bladder * Melissa placed (4) 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 However patient is not compliant with her CPAP at home * Will get another ApneaLink tonight as her symptoms may be related to untreated sleep apnea (6) Anxiety: Code(s): F41.9 - Anxiety disorder, unspecified Status: Acute Assessment and Plan: 03/06/24: * Takes Xanax at home * Possible unintentional overdose due to short-term memory loss (7) Hypertension: Code(s): I10 - Essential (primary) hypertension Status: Acute Assessment and Plan: 03/06/24: * Blood pressures ranging 109/50- 129/55 * Continue lisinopril and metoprolol * Will hold Bumex for now Time Spent With Patient Time with patient: 25 - 35 minutes Subjective Date/time seen: 03/06/24 07:26 Interval history: This is a 79 year old female who presented to the hospital on 03/05/24 for evaluation of altered mental status. She was accompanied by her who provided history. feels she took to much of her Xanax as she was very sleepy. Patient has history of cerebral aneurysm s/p clipping and coiling which resulted in short term memory loss. is concerned that she forgot she already took her Xanax and took more. Work up in the hospital included head CT which shown small region of subtle malacia in the anterosuperior right frontal lob
--- NOTE | 2024-03-06 07:26 | PM.IMPN ---
Progress Note: A&P Assessment and Plan (1) Altered mental status: Code(s): R41.82 - Altered mental status, unspecified Status: Acute Assessment and Plan: 03/06/24: Differential diagnosis may include: possible overdose of Xanax versus meningitis versus postictal state from seizure versus less likely stroke Continue neuro checks q.4 hours Showed small region of subtle malacia at the anterior superior right frontal lobe, no acute intracranial process postoperative change prior right frontotemporal craniotomy with right-sided mild aneurysm coiling and aneurysm clipping Chest/abdomen/pelvis CTA negative for PE Continue ampicillin, Rocephin, vancomycin for now Will obtain EEG and will check for lyme disease considering she was out in the garden the day her symptoms started May consider lumbar puncture to rule out meningitis, initial temperature 100.9?, white 10.0, procalcitonin 0.8, CRP 21.7, uric acid level was 8.5 MRI of brain and brainstem ordered Blood glucose 88-103 Respiratory panel was negative for influenza a and B, COVID, RSV Urine drug screen was positive for benzodiazepines Toxicology Tylenol level was less than 10, salicylates <1.0 TSH 0.566, vitamin B12 902.0 ABG showed respiratory alkalosis with a pH of 7.58, pCO2 31.3, PO2 60.9, bicarb 21.7 (2) Acute respiratory failure with hypoxia: Code(s): J96.01 - Acute respiratory failure with hypoxia Status: Acute Assessment and Plan: 03/06/24: likely secondary to somnolence Initially requiring 5 L nasal cannula, now on 2 L nasal cannula Continue to wean O2 for sat greater than 92% (3) Urinary retention: Code(s): R33.9 - Retention of urine, unspecified Status: Acute Assessment and Plan: 03/06/24: Urinary retention, Greater than 600 mL in bladder Melissa placed (4) 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 However patient is not compliant with her CPAP at home Will get another ApneaLink tonight as her symptoms may be related to untreated sleep apnea (6) Anxiety: Code(s): F41.9 - Anxiety disorder, unspecified Status: Acute Assessment and Plan: 03/06/24: Takes Xanax at home Possible unintentional overdose due to short-term memory loss (7) Hypertension: Code(s): I10 - Essential (primary) hypertension Status: Acute Assessment and Plan: 03/06/24: Blood pressures ranging 109/50- 129/55 Continue lisinopril and metoprolol Will hold Bumex for now Time Spent With Patient Time with patient: 25 - 35 minutes Subjective Date/time seen: 03/06/24 07:26 Interval history: This is a 79 year old female who presented to the hospital on 03/05/24 for evaluation of altered mental status. She was accompanied by her who provided history. feels she took to much of her Xanax as she was very sleepy. Patient has history of cerebral aneurysm s/p clipping and coiling which resulted in short term memory loss. is concerned that she forgot she already took her Xanax and took more. Work up in the hospital included head CT which shown small region of subtle malacia in the anterosuperior right frontal lobe, no acute intracranial process, postoperative change of prior right frontotemporal craniotomy with right-sided mild aneurysm coiling and aneurysm clipping likely for treatment of previously noted aneurysms of the distal right internal carotid artery and anterior communicating artery respectively. CXR shown marked elevation of right hemidiaphragm with mild atelectasis. CT of the chest/abdomen/pelvis was negative for P
[2024-03-06 08:59] LABS: Hematocrit 31.6 % (37.0-47.0); Hemoglobin 10.2 g/dL (12.0-15.0); Mean Corpuscular HGB Conc 32.3 g/dl (32-36); Mean Corpuscular Volume 102.3 fl (80-100); Platelet Count Result 177 k/mm3 (150-375); Red Blood Count 3.09 M/mm3 (4.2-5.4); Red Cell Distribution Width 13.3 % (11.5-14.5); White Blood Count 9.9 K/mm3 (4.5-10.0)
[2024-03-06] MEDS: SERTRALINE HCL 50 MG TABLET PO (09:22)
[2024-03-06] MEDS: CYANOCOBALAMIN 1,000 MCG TABLET 1000 MCG PO (09:22)
[2024-03-06] MEDS: lisinopriL 20 MG TABLET PO ×2 (09:22→17:00)
[2024-03-06] MEDS: METOPROLOL TARTRATE 50 MG TAB PO ×2 (09:22→20:36)
[2024-03-06] MEDS: MULTIVIT/MIN/PREN/FOL AC/IRON TABLET 1 TAB PO (09:23)
[2024-03-06] MEDS: PSYLLIUM POWDER PACKET 1 PACKET PO (09:24)
[2024-03-06] MEDS: PANTOPRAZOLE 40 MG TABLET PO ×2 (09:24→17:00)
[2024-03-06] MEDS: VANCOMYCIN 1,250 MG/NS 250 ML 1,250 MG/250 ML BAG 166.67 MG IVPB (18:42)
[2024-03-06] MEDS: LACTATED RINGERS 1,000 ML 75 ML IV CONT (23:00)
[2024-03-07] VITALS (14 sets, daily range): BP systolic 130–155; BP diastolic 62–73; PULSE 63–84; RESP 16–20; TEMP 36.5–36.9; O2SAT 93–100
--- NOTE | 2024-03-07 02:27 | PCRCNOTE ---
Patient refused apnea link stating she has already had a sleep study. She is supposed to wear cpap at home, but is not compliant.
[2024-03-07] MEDS: cefTRIAXone 2 GM/NS 100 ML 2 GM/100 ML BAG IVPB (05:28)
[2024-03-07 05:59] LABS: Estimated CRCL calculation 45 ml/min; Estimated Glomerular Filt Rate > 60
[2024-03-07] MEDS: AMPICILLIN 2 GM/NS 100 ML 2 GM/100 ML BAG IVPB ×2 (06:15→11:29)
--- NOTE | 2024-03-07 07:16 | P.PNIM_ITS ---
Progress Note: A&P Assessment and Plan (1) Altered mental status: Code(s): R41.82 - Altered mental status, unspecified Status: Acute Assessment and Plan: 03/06/24: * Differential diagnosis may include: possible overdose of Xanax versus meningitis versus postictal state from seizure versus less likely stroke * Continue neuro checks q.4 hours * Showed small region of subtle malacia at the anterior superior right frontal lobe, no acute intracranial process postoperative change prior right frontotemporal craniotomy with right-sided mild aneurysm coiling and aneurysm clipping * Chest/abdomen/pelvis CTA negative for PE * Continue ampicillin, Rocephin, vancomycin for now * Will obtain EEG and will check for lyme disease considering she was out in the garden the day her symptoms started * May consider lumbar puncture to rule out meningitis, initial temperature 100.9?, white 10.0, procalcitonin 0.8, CRP 21.7, uric acid level was 8.5 * MRI of brain and brainstem ordered * Blood glucose 88-103 * Respiratory panel was negative for influenza A and B, COVID, RSV * Urine drug screen was positive for benzodiazepines * Toxicology Tylenol level was less than 10, salicylates <1.0 * TSH 0.566, vitamin B12 902.0 * ABG showed respiratory alkalosis with a pH of 7.58, pCO2 31.3, PO2 60.9, bicarb 21.7 03/07/24: * MRI shown no evidence of acute intracranial process, postoperative changes in the right frontal lobe and right frontal bone. * EEG was unremarkable * Neurology following and will see today * Apnea link ordered for tonight * PT and OT ordered (2) Acute respiratory failure with hypoxia: Code(s): J96.01 - Acute respiratory failure with hypoxia Status: Acute Assessment and Plan: 03/06/24: * likely secondary to somnolence * Initially requiring 5 L nasal cannula, now on 2 L nasal cannula * Continue to wean O2 for sat greater than 92% 03/07/24: * Currently on room air (3) Urinary retention: Code(s): R33.9 - Retention of urine, unspecified Status: Acute Assessment and Plan: 03/06/24: * Urinary retention, Greater than 600 mL in bladder * Melissa placed 03/07/24: * No change (4) 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 However patient is not compliant with her CPAP at home * Will get another ApneaLink tonight as her symptoms may be related to untreated sleep apnea 03/07/24: * Patient refused Apnea link (6) Anxiety: Code(s): F41.9 - Anxiety disorder, unspecified Status: Acute Assessment and Plan: 03/06/24: * Takes Xanax at home * Possible unintentional overdose due to short-term memory loss 03/07/24: * continue to hold (7) Hypertension: Code(s): I10 - Essential (primary) hypertension Status: Acute Assessment and Plan: 03/06/24: * Blood pressures ranging 109/50- 129/55 * Continue lisinopril and metoprolol * Will hold Bumex for now 03/07/24: * No change Time Spent With Patient Time with patient: Greater than 35 minutes Subjective Date/time seen: 03/07/24 07:16 Interval history: Interval history: 03/06/24: This is
--- NOTE | 2024-03-07 07:16 | PM.IMPN ---
Progress Note: A&P Assessment and Plan (1) Altered mental status: Code(s): R41.82 - Altered mental status, unspecified Status: Acute Assessment and Plan: 03/06/24: Differential diagnosis may include: possible overdose of Xanax versus meningitis versus postictal state from seizure versus less likely stroke Continue neuro checks q.4 hours Showed small region of subtle malacia at the anterior superior right frontal lobe, no acute intracranial process postoperative change prior right frontotemporal craniotomy with right-sided mild aneurysm coiling and aneurysm clipping Chest/abdomen/pelvis CTA negative for PE Continue ampicillin, Rocephin, vancomycin for now Will obtain EEG and will check for lyme disease considering she was out in the garden the day her symptoms started May consider lumbar puncture to rule out meningitis, initial temperature 100.9?, white 10.0, procalcitonin 0.8, CRP 21.7, uric acid level was 8.5 MRI of brain and brainstem ordered Blood glucose 88-103 Respiratory panel was negative for influenza A and B, COVID, RSV Urine drug screen was positive for benzodiazepines Toxicology Tylenol level was less than 10, salicylates <1.0 TSH 0.566, vitamin B12 902.0 ABG showed respiratory alkalosis with a pH of 7.58, pCO2 31.3, PO2 60.9, bicarb 21.7 03/07/24: MRI shown no evidence of acute intracranial process, postoperative changes in the right frontal lobe and right frontal bone. EEG was unremarkable Neurology following and will see today Apnea link ordered for tonight PT and OT ordered (2) Acute respiratory failure with hypoxia: Code(s): J96.01 - Acute respiratory failure with hypoxia Status: Acute Assessment and Plan: 03/06/24: likely secondary to somnolence Initially requiring 5 L nasal cannula, now on 2 L nasal cannula Continue to wean O2 for sat greater than 92% 03/07/24: Currently on room air (3) Urinary retention: Code(s): R33.9 - Retention of urine, unspecified Status: Acute Assessment and Plan: 03/06/24: Urinary retention, Greater than 600 mL in bladder Melissa placed 03/07/24: No change (4) 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 However patient is not compliant with her CPAP at home Will get another ApneaLink tonight as her symptoms may be related to untreated sleep apnea 03/07/24: Patient refused Apnea link (6) Anxiety: Code(s): F41.9 - Anxiety disorder, unspecified Status: Acute Assessment and Plan: 03/06/24: Takes Xanax at home Possible unintentional overdose due to short-term memory loss 03/07/24: continue to hold (7) Hypertension: Code(s): I10 - Essential (primary) hypertension Status: Acute Assessment and Plan: 03/06/24: Blood pressures ranging 109/50- 129/55 Continue lisinopril and metoprolol Will hold Bumex for now 03/07/24: No change Time Spent With Patient Time with patient: Greater than 35 minutes Subjective Date/time seen: 03/07/24 07:16 Interval history: Interval history: 03/06/24: This is a 79 year old female who presented to the hospital on 03/05/24 for evaluation of altered mental status. She was accompanied by her who provided history. feels she took to much of her Xanax as she was very sleepy. Patient has history of cerebral aneurysm s/p clipping and coiling which resulted in short term memory loss. is concerned that she forgot she already took her Xanax and took more. Work up in the hospital included head CT which shown small region of subtle malacia in the anterosupe
[2024-03-07 07:35] LABS: Basophils Percent Auto 0.2 % (0.2-1.2); Eosinophils Absolute Auto 0.1 K/mm3 (0-0.3); Eosinophils Percent Auto 1.5 % (0-4.4); Hematocrit 26.9 % (37.0-47.0); Hemoglobin 9.1 g/dL (12.0-15.0); Immature Granulocyte Absolute 0.06 K/mm3 (0.00-0.031); Immature Granulocyte Percent A 0.7 % (0-0.5); Lymphocytes Percent Auto 20.9 % (18.3-44.2); Mean Corpuscular HGB Conc 33.8 g/dl (32-36); Mean Corpuscular Hemoglobin 33.3 pg (26-34); Mean Corpuscular Volume 98.5 fl (80-100); Mean Platelet Volume 10.3 fl (7.4-10.4); Monocytes Absolute Auto 0.4 K/mm3 (0.1-0.6); Monocytes Percent Auto 4.1 % (2.6-8.5); Neutrophils Absolute Auto 6.3 K/mm3 (1.3-6.7); Neutrophils Percent Auto 72.6 % (45.5-73.1); Platelet Count Result 154 k/mm3 (150-375); Red Blood Count 2.73 M/mm3 (4.2-5.4); Red Cell Distribution Width 13.5 % (11.5-14.5); White Blood Count 8.6 K/mm3 (4.5-10.0)
[2024-03-07] MEDS: MULTIVIT/MIN/PREN/FOL AC/IRON TABLET 1 TAB PO (08:17)
[2024-03-07] MEDS: PSYLLIUM POWDER PACKET 1 PACKET PO (08:17)
[2024-03-07] MEDS: lisinopriL 20 MG TABLET PO ×2 (08:17→16:29)
[2024-03-07] MEDS: METOPROLOL TARTRATE 50 MG TAB PO ×2 (08:17→21:42)
[2024-03-07] MEDS: PANTOPRAZOLE 40 MG TABLET PO ×2 (08:17→16:29)
[2024-03-07] MEDS: CYANOCOBALAMIN 1,000 MCG TABLET 1000 MCG PO (08:17)
[2024-03-07] MEDS: SERTRALINE HCL 50 MG TABLET PO (08:17)
--- NOTE | 2024-03-07 08:18 | WPDNEUROLOGY ---
Neurology EEG Report General Information Date of Study: 03/06/24 TEST eeg DIAGNOSIS Altered mental status CONDITION OF RECORDING drowsy and slept throughout the tracing. EEG NUMBER [id number] CLINICAL HISTORY Patient is lethargic and slept throughout this set up and tracing no particular history was available EEG DESCRIPTION whole record consists of low voltage 15 to 18 hertz per 2nd beta admixed with low-voltage 6 to 7 hertz per 2nd theta and with poor anterior to posterior gradient. Bilateral symmetrical sleep activity is noted intermittently. Non paroxysmal. Nonfocal. Nonlateralizing. IMPRESSION No significant abnormalities noted in this particular tracing. Clinical correlation recommended.
[2024-03-07 08:20] LABS: Alanine Aminotransferase 10 U/L (6-35); Albumin Level 3.1 g/dL (3.5-5.1); Alkaline Phosphatase 84 U/L (38-126); Anion Gap 7 mmol/L (4-12); Aspartate Amino Transferase 21 U/L (14-36); Bilirubin,Total 0.6 mg/dL (0.2-1.3); Blood Urea Nitrogen 11 mg/dL (7-17); Calcium 8.5 mg/dL (8.4-10.2); Carbon Dioxide 24 mmol/L (22-30); Chloride 113 mmol/L (98-107); Estimated CRCL calculation 45 ml/min; Estimated Glomerular Filt Rate > 60; Glucose 97 mg/dL (65-110); Potassium 3.2 mmol/L (3.4-5.0); Sodium 144 mmol/L (137-145)
--- NOTE | 2024-03-07 08:42 | WPDNEURCNPN ---
Assessment and Plan Assessment and plan (1) Encephalopathy: Code(s): G93.40 - Encephalopathy, unspecified Status: Acute Plan encephalopathy evaluation is being carried out and management as such the Consult date: 03/07/24 HPI: Shyann Gallegos is a 79 year old female admitted to the hospital through the emergency room for the complaints of increasing lethargy. Reportedly patient went to bed yesterday after taking her nightly Xanax though she did a lot of yd work day before but next day that is day of coming to the ER she was difficult to be aroused counted the Xanax pills from the date there were prescribed and not many were missing he decided to bring her to the emergency room for further evaluation on initial arrival in the ER she was answering all the questions but did appear drowsy though she was able to follow all the verbal commands and respond appropriately. Her home medications included topiramate 50mg twice a day, amlodipine 5mg daily, aspirin 81mg daily, and melatonin 10mg daily. 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 Initial lab documented her to be anemic with a hemoglobin 9.1 and potassium of only 3.2, he had MRI of the brain which was negative except the postoperative changes right frontal lobe and right frontal bone and her CT scan has revealed a small area of subtle malacia in anterior superior right frontal lobe with no acute process along with the postoperative changes of prior right fronto temporal craniotomy with right-sided mild aneurysm coiling and clipping. Review of Systems Review of Systems: All systems reviewed & are unremarkable except as noted in HPI and below PMFSH Past Medical History Medical History Anemia Anterior communicating artery aneurysm Anxiety Benign essential hypertension BMI 27.0-27.9,adult BMI 30.0-30.9,adult BMI 31.0-31.9,adult BMI 32.0-32.9,adult Cellulitis Chronic pruritus Cognitive dysfunction CVA (cerebral vascular accident) had cardiac cath causing plaque embolism Encounter for routine adult health examination with abnormal findings Essential (primary) hypertension Fall Familial hypercholesterolemia GERD (gastroesophageal reflux disease) Hyperlipidemia Hypertension Hypervitaminosis D Intractable headache Lumbar back pain with radiculopathy affecting right lower extremity Microvascular angina Mixed hyperlipidemia Obstructive sleep apnea Seborrheic dermatitis Statin intolerance Syncope Torn meniscus Vitamin D deficiency Surgical History Surgical History History of bladder surgery times 7 from [id number] History of bunionectomy 1980 right one in 1998 History of cerebral aneurysm repair times 2 2019 History of cholecystectomy (~2002) History of foot surgery right in 2013 left in 2015 History of hysterectomy total 1979 History of laparoscopic cholecystectomy 2003 History of repair of hip joint 2006 History of rotator cuff surgery left in 1997 right 1999 History of spinal surgery 2017 History of surgery on lower extremity (~1977) Tail bone removal Family History Family History Father Diabetes mellitus Hypertension Family history of malignant neoplasm Family history of diabetes mellitus in first degree relative Family history of heart disease in male family member before age 55 Heart disease Mother Hypertension Family history of heart disease in male family member before age 55 Heart disease Sibling Family history of cardiovascular disease Family history of heart disease in male family member before age 55 Grandparent Carcinoma o
[2024-03-07] MEDS: POTASSIUM CHLORIDE 20 MEQ ER TABLET PO (12:45)
[2024-03-07 21:05] LABS: Vancomycin Trough 8.8 ug/mL (10.0-20.0)
[2024-03-08] VITALS (14 sets, daily range): BP systolic 142–156; BP diastolic 48–76; PULSE 54–87; RESP 16–24; TEMP 36.3–37.2; O2SAT 92–100
[2024-03-08 06:32] LABS: Basophils Percent Auto 0.4 % (0.2-1.2); Eosinophils Absolute Auto 0.2 K/mm3 (0-0.3); Eosinophils Percent Auto 1.8 % (0-4.4); Hematocrit 27.7 % (37.0-47.0); Hemoglobin 9.3 g/dL (12.0-15.0); Immature Granulocyte Absolute 0.13 K/mm3 (0.00-0.031); Immature Granulocyte Percent A 1.3 % (0-0.5); Lymphocytes Absolute Auto 1.52 K/mm3 (0.9-3.2); Lymphocytes Percent Auto 15.2 % (18.3-44.2); Mean Corpuscular HGB Conc 33.6 g/dl (32-36); Mean Corpuscular Hemoglobin 33.1 pg (26-34); Mean Corpuscular Volume 98.6 fl (80-100); Mean Platelet Volume 9.8 fl (7.4-10.4); Monocytes Absolute Auto 0.5 K/mm3 (0.1-0.6); Monocytes Percent Auto 4.6 % (2.6-8.5); Neutrophils Absolute Auto 7.7 K/mm3 (1.3-6.7); Neutrophils Percent Auto 76.7 % (45.5-73.1); Platelet Count Result 161 k/mm3 (150-375); Red Blood Count 2.81 M/mm3 (4.2-5.4); Red Cell Distribution Width 13.1 % (11.5-14.5)
[2024-03-08 06:41] LABS: Potassium 3.2 mmol/L (3.4-5.0)
[2024-03-08 06:43] LABS: Alanine Aminotransferase 11 U/L (6-35); Albumin Level 3.3 g/dL (3.5-5.1); Alkaline Phosphatase 82 U/L (38-126); Anion Gap 6 mmol/L (4-12); Aspartate Amino Transferase 19 U/L (14-36); Bilirubin,Total 0.5 mg/dL (0.2-1.3); Blood Urea Nitrogen 7 mg/dL (7-17); Calcium 8.8 mg/dL (8.4-10.2); Carbon Dioxide 23 mmol/L (22-30); Chloride 113 mmol/L (98-107); Estimated CRCL calculation 45 ml/min; Estimated Glomerular Filt Rate > 60; Glucose 96 mg/dL (65-110); Sodium 142 mmol/L (137-145)
[2024-03-08] MEDS: METOPROLOL TARTRATE 50 MG TAB PO ×2 (08:41→20:41)
[2024-03-08] MEDS: MULTIVIT/MIN/PREN/FOL AC/IRON TABLET 1 TAB PO (08:41)
[2024-03-08] MEDS: PANTOPRAZOLE 40 MG TABLET PO ×2 (08:41→16:13)
[2024-03-08] MEDS: CYANOCOBALAMIN 1,000 MCG TABLET 1000 MCG PO (08:41)
[2024-03-08] MEDS: lisinopriL 20 MG TABLET PO ×2 (08:42→16:13)
[2024-03-08] MEDS: SERTRALINE HCL 50 MG TABLET PO (08:42)
[2024-03-08] MEDS: PSYLLIUM POWDER PACKET 1 PACKET PO (08:42)
--- NOTE | 2024-03-08 09:28 | WPDPN ---
Subjective Date/time seen: 03/08/24 09:28 Interval history: Mental status improving. Able to state month and year, but no recollection of events leading up to admission. . Monitoring off antibiotics Review of Systems Review of Systems: Unsteady gait, usually ambulatory. Otherwise no shortness of breath or other symptoms. Feeling well today, no dysuria, headache, or other symptoms. Exam Narrative: General - Awake and alert. No acute distress Eyes - PERRLA, EOM intact ENT - No thrush, No erythema Neck - No noticeable or palpable swelling Lymph Nodes - No lymphadenopathy Cardiovascular - RRR no m/r/g, no JVD Lungs: Clear to auscultation, No wheezing, use of accessory muscles, no crackles or wheezes. Skin - Skin warm and dry, no wounds or rashes Abdomen - Normal bowel sounds, abdomen soft and nontender Extremities - No edema, cyanosis or clubbing Musculoskeletal - 5/5 strength, normal range of motion, no swollen or erythematous joints. Neurological ? Alert and oriented x 2 (Month and year, but wrong date), CN 2-12 grossly intact. Short term memory poor: remembered 1/3 words in 1 minute. Serial 7's: unable to do the first number after an example. Counted backwards from 100 by 1's. Psych: Normal mood and affect Objective Data Vital Signs Vital Signs: Vital Signs - 24 hr 03/07/24 11:02 03/07/24 12:01 03/07/24 14:44 Temperature 98.0 F Pulse Rate 72 77 Respiratory Rate 16 Blood Pressure 146/70 H Pulse Oximetry 97 Oxygen Delivery Room Air 03/07/24 15:55 03/07/24 16:03 03/07/24 21:42 Temperature 98.5 F Pulse Rate 74 84 63 Respiratory Rate 20 Blood Pressure 152/71 H Pulse Oximetry 100 Oxygen Delivery 03/07/24 21:47 03/07/24 21:36 03/07/24 20:00 Temperature 97.9 F Pulse Rate 64 72 Respiratory Rate 16 Blood Pressure 155/72 H Pulse Oximetry 100 Oxygen Delivery Room Air 03/08/24 00:00 03/08/24 04:00 03/08/24 05:44 Temperature 98.1 F Pulse Rate 61 63 72 Respiratory Rate 18 Blood Pressure 145/63 H Pulse Oximetry 92 Oxygen Delivery 03/08/24 08:41 03/08/24 08:42 03/08/24 08:03 Temperature Pulse Rate 72 69 Respiratory Rate 18 Blood Pressure Pulse Oximetry 92 Oxygen Delivery Room Air 03/08/24 08:00 Temperature 97.4 F L Pulse Rate 68 Respiratory Rate 18 Blood Pressure 142/65 H Pulse Oximetry 95 Oxygen Delivery Intake/Output Intake/Output: Intake & Output 03/05/24 03/06/24 03/07/24 03/08/24 23:59 23:59 23:59 23:59 Intake Total 2200 2407.6 1420 590 Output Total 300 1700 250 Balance 1900 707.6 1170 590 Meds/Results Medications: Active Medications Generic Name Dose Route Start Last Admin Trade Name Freq PRN Reason Stop Dose Admin Cyanocobalamin 1,000 mcg 03/06/24 09:00 03/08/24 08:41 Cyanocobalamin 1,000 Mcg Tablet PO 1,000 mcg QAM MAXWELL Administration Lisinopril 20 mg 03/06/24 09:00 03/08/24 08:42 Lisinopril 20 Mg Tablet PO 20 mg BID MAXWELL Administration Metoprolol Tartrate 50 mg 03/05/24 23:20 03/08/24 08:41 Metoprolol Tartrate 50 Mg Tab PO 50 mg Q12HR MAXWELL Administration Pantoprazole Sodium 40 mg 03/06/24 09:00 03/08/24 08:41 Pantoprazole 40 Mg Tablet PO 40 mg BID MAXWELL Administration Vit/Calcium/Iron/Folic Ac 1 tab 03/06/24 09:00 03/08/24 08:41 Multivit/Min/Pren/Fol Ac/Iron Tablet PO 1 tab DAILY MAXWELL Administration Psyllium Hydrophilic Mucilloid 1 packet 03/06/24 09:00 03/08/24 08:42 Psyllium Powder Packet PO 1 packet DAILY MAXWELL Administration Sertraline HCl 50 mg 03/06/24 09:00 03/08/24 08:42 Sertraline Hcl 50 Mg Tablet PO 50 mg DAILY MAXWELL Administration Radiology Results: ITS Impressions Head CT 03/05/24 13:28 IMPRESSION: 1. Small region of subtle malacia the anterosuperior right frontal lobe which could represent sequela prior infarct, trauma or surgery. No acute intracranial process. 2. Postoperative
--- NOTE | 2024-03-08 09:49 | P.PNIM_ITS ---
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 Note of open bottle of Xanax on the kitchen counter with 6 or 7 pills lying nearby. Febrile 03/06/24: * Differential diagnosis may include: possible overdose of Xanax versus meningitis versus postictal state from seizure versus less likely stroke * Continue neuro checks q.4 hours * Showed small region of subtle malacia at the anterior superior right frontal lobe, no acute intracranial process postoperative change prior right frontotemporal craniotomy with right-sided mild aneurysm coiling and aneurysm clipping * Chest/abdomen/pelvis CTA negative for PE * Continue ampicillin, Rocephin, vancomycin for now * Will obtain EEG and will check for lyme disease considering she was out in the garden the day her symptoms started * May consider lumbar puncture to rule out meningitis, initial temperature 100.9?, white 10.0, procalcitonin 0.8, CRP 21.7, uric acid level was 8.5 * MRI of brain and brainstem ordered * Blood glucose 88-103 * Respiratory panel was negative for influenza A and B, COVID, RSV * Urine drug screen was positive for benzodiazepines * Toxicology Tylenol level was less than 10, salicylates <1.0 * TSH 0.566, vitamin B12 902.0 * ABG showed respiratory alkalosis with a pH of 7.58, pCO2 31.3, PO2 60.9, bicarb 21.7 03/07/24: * MRI shown no evidence of acute intracranial process, postoperative changes in the right frontal lobe and right frontal bone. * EEG was unremarkable * Neurology following and will see today * Apnea link ordered for tonight * PT and OT ordered 03/08/24: * Mental status improved, oriented x2-3 but poor short term and intact working memory * Neurology following * Unable to complete sleep apnea study * PT and OT eval pending today * Change neuro checks to q12 * Blood cultures pending 03/05--NGTD (Temp 03/05 100.9, has since been afebrile) (2) Acute respiratory failure with hypoxia: Code(s): J96.01 - Acute respiratory failure with hypoxia Status: Acute Assessment and Plan: 03/06/24: * likely secondary to somnolence * Initially requiring 5 L nasal cannula, now on 2 L nasal cannula * Continue to wean O2 for sat greater than 92% 03/07-03/08 * Currently on room air (3) Urinary retention: Code(s): R33.9 - Retention of urine, unspecified Status: Acute Assessment and Plan: 03/06/24: * Urinary retention, Greater than 600 mL in bladder * Melissa placed 03/07 * No change 03/08 * Melissa was removed (4) 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 However patient is not compliant with her CPAP at home * Will get another ApneaLink tonight as her symptoms may be related to untreated sleep apnea 03/07/24: * Patient refused Apnea link (6) Anxiety: Code(s): F41.9 - Anxiety disorder, unspecified
--- NOTE | 2024-03-08 09:49 | PM.IMPN ---
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 Note of open bottle of Xanax on the kitchen counter with 6 or 7 pills lying nearby. Febrile 03/06/24: Differential diagnosis may include: possible overdose of Xanax versus meningitis versus postictal state from seizure versus less likely stroke Continue neuro checks q.4 hours Showed small region of subtle malacia at the anterior superior right frontal lobe, no acute intracranial process postoperative change prior right frontotemporal craniotomy with right-sided mild aneurysm coiling and aneurysm clipping Chest/abdomen/pelvis CTA negative for PE Continue ampicillin, Rocephin, vancomycin for now Will obtain EEG and will check for lyme disease considering she was out in the garden the day her symptoms started May consider lumbar puncture to rule out meningitis, initial temperature 100.9?, white 10.0, procalcitonin 0.8, CRP 21.7, uric acid level was 8.5 MRI of brain and brainstem ordered Blood glucose 88-103 Respiratory panel was negative for influenza A and B, COVID, RSV Urine drug screen was positive for benzodiazepines Toxicology Tylenol level was less than 10, salicylates <1.0 TSH 0.566, vitamin B12 902.0 ABG showed respiratory alkalosis with a pH of 7.58, pCO2 31.3, PO2 60.9, bicarb 21.7 03/07/24: MRI shown no evidence of acute intracranial process, postoperative changes in the right frontal lobe and right frontal bone. EEG was unremarkable Neurology following and will see today Apnea link ordered for tonight PT and OT ordered 03/08/24: Mental status improved, oriented x2-3 but poor short term and intact working memory Neurology following Unable to complete sleep apnea study PT and OT eval pending today Change neuro checks to q12 Blood cultures pending 03/05--NGTD (Temp 03/05 100.9, has since been afebrile) (2) Acute respiratory failure with hypoxia: Code(s): J96.01 - Acute respiratory failure with hypoxia Status: Acute Assessment and Plan: 03/06/24: likely secondary to somnolence Initially requiring 5 L nasal cannula, now on 2 L nasal cannula Continue to wean O2 for sat greater than 92% 03/07-03/08 Currently on room air (3) Urinary retention: Code(s): R33.9 - Retention of urine, unspecified Status: Acute Assessment and Plan: 03/06/24: Urinary retention, Greater than 600 mL in bladder Melissa placed 03/07 No change 03/08 Melissa was removed (4) 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 However patient is not compliant with her CPAP at home Will get another ApneaLink tonight as her symptoms may be related to untreated sleep apnea 03/07/24: Patient refused Apnea link (6) Anxiety: Code(s): F41.9 - Anxiety disorder, unspecified Status: Acute Assessment and Plan: 03/06/24: Takes Xanax at home Possible unintentional overdose due to short-term memory loss 03/07/24: continue to hold 03/08/24: Clarify how often patient takes xanax at home (7) Hypertension: Code(s): I10 - Essential (primary) hypertension Status: Acute Assessment and Plan: 03/06/24: Blood pressures ranging 109/50- 129/55 Continue lisinopril and metoprolol Will hold Bumex for now 03/07/24: No change
[2024-03-08] MEDS: MAGNESIUM SULF 2 GM/WATER 50ML 2 GM/50 ML BAG IVPB (10:28)
[2024-03-08] MEDS: POTASSIUM CHLORIDE 20 MEQ PACKET (FOR LIQUID) PO (10:28)
[2024-03-08 15:30] LABS: Lyme Disease Ab (IgM), Blot NEGATIVE (NEGATIVE); Lyme Disease Ab(IgG), Blot NEGATIVE (NEGATIVE)
[2024-03-09] VITALS (8 sets, daily range): BP systolic 130–152; BP diastolic 61–69; PULSE 54–82; RESP 16–20; TEMP 36.2–36.8; O2SAT 93–100
[2024-03-09 05:21] LABS: Basophils Percent Auto 0.6 % (0.2-1.2); Eosinophils Absolute Auto 0.2 K/mm3 (0-0.3); Eosinophils Percent Auto 3.2 % (0-4.4); Hematocrit 28.1 % (37.0-47.0); Hemoglobin 9.4 g/dL (12.0-15.0); Immature Granulocyte Absolute 0.08 K/mm3 (0.00-0.031); Immature Granulocyte Percent A 1.2 % (0-0.5); Lymphocytes Absolute Auto 1.76 K/mm3 (0.9-3.2); Lymphocytes Percent Auto 26.7 % (18.3-44.2); Mean Corpuscular HGB Conc 33.5 g/dl (32-36); Mean Corpuscular Hemoglobin 33.1 pg (26-34); Mean Corpuscular Volume 98.9 fl (80-100); Mean Platelet Volume 9.9 fl (7.4-10.4); Monocytes Absolute Auto 0.4 K/mm3 (0.1-0.6); Monocytes Percent Auto 5.9 % (2.6-8.5); Neutrophils Absolute Auto 4.1 K/mm3 (1.3-6.7); Neutrophils Percent Auto 62.4 % (45.5-73.1); Platelet Count Result 183 k/mm3 (150-375); Red Blood Count 2.84 M/mm3 (4.2-5.4); White Blood Count 6.6 K/mm3 (4.5-10.0)
[2024-03-09 05:30] LABS: Anion Gap 7 mmol/L (4-12); Blood Urea Nitrogen 9 mg/dL (7-17); Calcium 8.7 mg/dL (8.4-10.2); Carbon Dioxide 20 mmol/L (22-30); Chloride 113 mmol/L (98-107); Estimated CRCL calculation 40 ml/min; Estimated Glomerular Filt Rate > 60; Glucose 93 mg/dL (65-110); Potassium 3.2 mmol/L (3.4-5.0); Sodium 140 mmol/L (137-145)
[2024-03-09 05:51] LABS: Iron 47 ug/dL (37-170)
[2024-03-09 06:00] LABS: Percent Iron Saturation 25 % (20-50)
[2024-03-09] MEDS: CYANOCOBALAMIN 1,000 MCG TABLET 1000 MCG PO (08:36)
[2024-03-09] MEDS: ENOXAPARIN 40 MG/0.4 ML SYRINGE SUB-Q (08:36)
[2024-03-09] MEDS: lisinopriL 20 MG TABLET PO (08:37)
[2024-03-09] MEDS: METOPROLOL TARTRATE 50 MG TAB PO (08:37)
[2024-03-09] MEDS: PANTOPRAZOLE 40 MG TABLET PO (08:37)
[2024-03-09] MEDS: PSYLLIUM POWDER PACKET 1 PACKET PO (08:38)
[2024-03-09] MEDS: MULTIVIT/MIN/PREN/FOL AC/IRON TABLET 1 TAB PO (08:38)
[2024-03-09] MEDS: SERTRALINE HCL 50 MG TABLET PO (08:38)
[2024-03-09] MEDS: POTASSIUM CHLORIDE 20 MEQ ER TABLET 40 MEQ PO (11:32)
--- NOTE | 2024-03-09 14:42 | P.PNIM_ITS ---
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 Note of open bottle of Xanax on the kitchen counter with 6 or 7 pills lying nearby. initial temperature 100.9?, white 10.0, procalcitonin 0.8, CRP 21.7, uric acid level was 8.5. Given fever, may have been viral. Unclear etiology but no acute concerns at this point. Started on empiric ampicillin, Rocephin, vancomycin, but doing well off antibiotics for 2 days. Unable to complete apnea screen. Doing well with PT prior to discharge. Differential diagnosis includes: possible overdose of Xanax versus meningitis versus postictal state from seizure vs viral infection Neurology followed during admission LABS * ABG showed respiratory alkalosis with a pH of 7.58, pCO2 31.3, PO2 60.9, bicarb 21.7 * * Blood glucose 88-103 * Respiratory panel was negative for influenza A and B, COVID, RSV * Toxicology Tylenol level was less than 10, salicylates <1.0. * Urine drug screen was positive for benzodiazepines * TSH 0.566, vitamin B12 902.0 * Lyme serologies negative IMAGING: * CT Showed small region of subtle malacia at the anterior superior right frontal lobe, no acute intracranial process postoperative change prior right frontotemporal craniotomy with right-sided mild aneurysm coiling and aneurysm clipping * Chest/abdomen/pelvis CTA negative for PE * MRI shown no evidence of acute intracranial process, postoperative changes in the right frontal lobe and right frontal bone. * EEG was unremarkable * PT and OT ordered 03/09/24: * Mental status improved, oriented x2-3 but poor short term and intact working memory. At baseline per at bedside * Blood cultures pending 03/06--NGTD (Temp 630 100.9, has since been afebrile) Discharge today (2) Acute respiratory failure with hypoxia: Code(s): J96.01 - Acute respiratory failure with hypoxia Status: Acute Assessment and Plan: 03/06/24: * likely secondary to somnolence * Initially requiring 5 L nasal cannula, now on 2 L nasal cannula * Continue to wean O2 for sat greater than 92% 03/07-03/08 * Currently on room air (3) Urinary retention: Code(s): R33.9 - Retention of urine, unspecified Status: Acute Assessment and Plan: 03/06/24: * Urinary retention, Greater than 600 mL in bladder * Melissa placed 03/07 * No change 03/08 * Melissa was removed (4) 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 However patient is not compliant with her CPAP at home * Will get another ApneaLink tonight as her symptoms may be related to untreated sleep apnea 03/07/24: * Patient refused Apnea link (6) Anxiety: Code(s): F41.9 - Anxiety disorder, unspecified Status: Acute Assessment and Plan: 03/06/24: * Takes Xanax at home * Possible unintentional overdose due to short-term m
--- NOTE | 2024-03-09 14:42 | PM.IMPN ---
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 Note of open bottle of Xanax on the kitchen counter with 6 or 7 pills lying nearby. initial temperature 100.9?, white 10.0, procalcitonin 0.8, CRP 21.7, uric acid level was 8.5. Given fever, may have been viral. Unclear etiology but no acute concerns at this point. Started on empiric ampicillin, Rocephin, vancomycin, but doing well off antibiotics for 2 days. Unable to complete apnea screen. Doing well with PT prior to discharge. Differential diagnosis includes: possible overdose of Xanax versus meningitis versus postictal state from seizure vs viral infection Neurology followed during admission LABS ABG showed respiratory alkalosis with a pH of 7.58, pCO2 31.3, PO2 60.9, bicarb 21.7 Blood glucose 88-103 Respiratory panel was negative for influenza A and B, COVID, RSV Toxicology Tylenol level was less than 10, salicylates <1.0. Urine drug screen was positive for benzodiazepines TSH 0.566, vitamin B12 902.0 Lyme serologies negative IMAGING: CT Showed small region of subtle malacia at the anterior superior right frontal lobe, no acute intracranial process postoperative change prior right frontotemporal craniotomy with right-sided mild aneurysm coiling and aneurysm clipping Chest/abdomen/pelvis CTA negative for PE MRI shown no evidence of acute intracranial process, postoperative changes in the right frontal lobe and right frontal bone. EEG was unremarkable PT and OT ordered 03/09/24: Mental status improved, oriented x2-3 but poor short term and intact working memory. At baseline per at bedside Blood cultures pending 03/06--NGTD (Temp 03/05 100.9, has since been afebrile) Discharge today (2) Acute respiratory failure with hypoxia: Code(s): J96.01 - Acute respiratory failure with hypoxia Status: Acute Assessment and Plan: 03/06/24: likely secondary to somnolence Initially requiring 5 L nasal cannula, now on 2 L nasal cannula Continue to wean O2 for sat greater than 92% 03/07-03/08 Currently on room air (3) Urinary retention: Code(s): R33.9 - Retention of urine, unspecified Status: Acute Assessment and Plan: 03/06/24: Urinary retention, Greater than 600 mL in bladder Melissa placed 03/07 No change 03/08 Melissa was removed (4) 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 However patient is not compliant with her CPAP at home Will get another ApneaLink tonight as her symptoms may be related to untreated sleep apnea 03/07/24: Patient refused Apnea link (6) Anxiety: Code(s): F41.9 - Anxiety disorder, unspecified Status: Acute Assessment and Plan: 03/06/24: Takes Xanax at home Possible unintentional overdose due to short-term memory loss 03/07/24: continue to hold 03/09/24: Rarely takes xanax. planning to administer in the future (7) Hypertension: Code(s): I10 - Essential (primary) hypertension Status: Acute Assessment and Plan: 03/06/24: Blood pressures ranging 109/50- 129/55 Continue lisinopril and metoprolol Held Bumex 03/07/24: No change Plan Mental status improving. Monitoring off antibiotics and following final blood cultures. Repleting electrol
--- NOTE | 2024-03-09 14:56 | PM.DS ---
DS: Admitting Diagnosis Discharge Date 03/09/24 Admitting Diagnosis Altered Mental status DS: Discharge Diagnosis Discharge Diagnosis Plan Altered mental status resolved. Follow up with PCP. DS: Summary Hospital Course Reason for hospitalization: Altered mental status and fever ? 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 Note of open bottle of Xanax on the kitchen counter with 6 or 7 pills lying nearby. initial temperature 100.9?, white 10.0, procalcitonin 0.8, CRP 21.7, uric acid level was 8.5. Given fever, may have been viral. Unclear etiology but no acute concerns at this point. Started on empiric ampicillin, Rocephin, vancomycin, but doing well off antibiotics for 2 days. Unable to complete apnea screen. Doing well with PT prior to discharge. Differential diagnosis includes: possible overdose of Xanax versus meningitis versus postictal state from seizure vs viral infection. Neurology followed during admission LABS o??? ABG showed respiratory alkalosis with a pH of 7.58, pCO2 31.3, PO2 60.9, bicarb 21.7 o??? Blood glucose 88-103 o??? Respiratory panel was negative for influenza A and B, COVID, RSV o??? Toxicology Tylenol level was less than 10, salicylates <1.0. o??? Urine drug screen was positive for benzodiazepines o??? TSH 0.566, vitamin B12 902.0 o??? Lyme serologies negative IMAGING: o??? CT Showed small region of subtle malacia at the anterior superior right frontal lobe, no acute intracranial process postoperative change prior right frontotemporal craniotomy with right-sided mild aneurysm coiling and aneurysm clipping o??? Chest/abdomen/pelvis CTA negative for PE o??? MRI shown no evidence of acute intracranial process, postoperative changes in the right frontal lobe and right frontal bone. o??? EEG was unremarkable o??? PT and OT ordered At discharge, mental status improved, oriented x2-3 but poor short term and intact working memory. At baseline per at bedside o??? Blood cultures pending 03/06--NGTD (Temp 03/05 100.9, has since been afebrile) Otherwise, potassium and magnesium were intermittently low. Initially had urinary retention (>600ml) that resolved and voiding. Bumex had been held for borderline blood pressures. continued potassium daily for 5 days, and should follow up with her PCP in 1-2 weeks. Follow up BMP. Resume Bumex if needed. Has a CPAP at home but does not use. Did not tolerate a trial during admission. to give xanax as needed. Changed to daily prn Status at Discharge Cognitive/behavioral status at discharge: mental status improved, oriented x2-3 but poor short term and intact working memory. At baseline per at bedside Time Spent with Patient Time attestation: Total time spent providing and/or coordinating discharge services: DS: Data Data Completed and Pending Labs on day of discharge: Labs from last 24 hours 03/09/24 03/06/24 04:52 05:34 WBC 6.6 RBC 2.84 L Hgb 9.4 L Hct 28.1 L MCV 98.9 MCH 33.1 MCHC 33.5 RDW 13.0 Plt Count 183 MPV 9.9 Immature Gran % (Auto) 1.2 H Neut % (Auto) 62.4 Lymph % (Auto) 26.7 [place] % (Auto) 5.9 Eos % (Auto) 3.2 Baso % (Auto) 0.6 Lymph # (Auto) 1.76 [place] # (Auto) 0.4 Eos # (Auto) 0.2 Baso # (Auto) 0.0 Abs Immat Gran (auto) 0.08 H Absolute Neuts (auto) 4.1 Absolute Nucleated RBC 0.000 Nucleated RBC % 0.0 Sodium 140 Potassium 3.2 L Chloride 113 H Carbon Dioxide 20 L Anion Gap 7 BUN 9 Creatinine 0.90 Estim Creat Clear Calc 40 Estimated GFR > 60 Glucose 93 Calcium 8.7 Magnesium 2.0 Iron 47 TIBC 187 L % Saturation 25 Ferritin 251.00 Lyme IgG 18 kDa Band Non-reactive Lyme IgG 23 kDa Band Non-reactive Lyme IgG 28 kDa Band Non-reac
--- NOTE | 2024-03-09 15:45 | WPDNEUROPN ---
Progress Note: A&P Assessment and Plan (1) Encephalopathy: Code(s): G93.40 - Encephalopathy, unspecified Status: Acute (2) Obstructive sleep apnea: Code(s): G47.33 - Obstructive sleep apnea (adult) (pediatric) Status: Acute (3) History of surgery for cerebral aneurysm: Code(s): Z98.890 - Other specified postprocedural states Status: Acute Plan Patient is neurological status is back to baseline. She did not have any seizures after she had the surgery on the brain. She was overheated and today was somewhat confused thereafter and became sleepy. I told her that if she has any further spells I would like to see her again otherwise continue follow-up with primary care provider. Her current records were reviewed and I agree with management. Subjective Date/time seen: 03/09/24 15:45 Interval history: The patient was seen previously by Dr. Khan from Neurology point of view for episode where the patient was confused or unresponsive. According to the patient's she got overheated and was lying down. She not had any previous passing out spell. It was noted that she did have a surgery for cerebral aneurysm 2019 and thereafter she made a fair recovery without any weakness or seizures. This will also in the consideration on this occasion. An EEG was performed did not show any abnormality CT scan of the brain did not show any acute findings. Scarring from the previous surgery were noted. Review of Systems Review of Systems: All systems reviewed & are unremarkable except as noted in HPI and below Exam Narrative: Fully conscious alert oriented to self time place and person. Scars were noted on the right side of the head where she has had a surgeries. Cranial nerves on individual testing are intact. Motor system normal power and tone in both upper and lower limbs. No involuntary movements are seen. Objective Data Vital Signs Vital Signs: Vital Signs - 24 hr 03/08/24 18:14 03/08/24 16:00 03/08/24 21:48 Temperature 36.8 C 37.2 C Pulse Rate 73 66 69 Respiratory Rate 18 16 Blood Pressure 153/76 H 156/73 H Pulse Oximetry 100 94 Oxygen Delivery 03/08/24 20:00 03/08/24 23:31 03/09/24 00:00 Temperature 36.8 C Pulse Rate 72 87 69 Respiratory Rate 24 H 16 Blood Pressure 130/61 Pulse Oximetry 96 93 Oxygen Delivery Autopap 03/09/24 02:30 03/09/24 00:00 03/09/24 04:00 Temperature Pulse Rate 81 62 54 L Respiratory Rate 20 Blood Pressure Pulse Oximetry 97 Oxygen Delivery Autopap 03/08/24 20:00 03/09/24 04:59 03/09/24 08:00 Temperature 36.4 C Pulse Rate 54 L 61 60 Respiratory Rate 20 16 Blood Pressure 140/66 Pulse Oximetry 97 98 Oxygen Delivery Autopap 03/09/24 08:37 03/09/24 08:00 03/09/24 11:23 Temperature 36.2 C L Pulse Rate 64 64 Respiratory Rate 16 Blood Pressure 152/69 H Pulse Oximetry 100 Oxygen Delivery Room Air 03/09/24 12:00 Temperature Pulse Rate 82 Respiratory Rate Blood Pressure Pulse Oximetry Oxygen Delivery Intake/Output Intake/Output: Intake & Output 03/06/24 03/07/24 03/08/24 03/09/24 23:59 23:59 23:59 23:59 Intake Total 2407.6 1420 1128.3 880 Output Total 1700 250 Balance 707.6 1170 1128.3 880 Meds/Results Medications: Active Medications Generic Name Dose Route Start Last Admin Trade Name Freq PRN Reason Stop Dose Admin Cyanocobalamin 1,000 mcg 03/06/24 09:00 03/09/24 08:36 Cyanocobalamin 1,000 Mcg Tablet PO 1,000 mcg QAM MAXWELL Administration Enoxaparin Sodium 40 mg 03/09/24 09:00 03/09/24 08:36 Enoxaparin 40 Mg/0.4 Ml Syringe SUB-Q 40 mg DAILY MAXWELL Administration Lisinopril 20 mg 03/06/24 09:00 03/09/24 08:37 Lisinopril 20 Mg Tablet PO 20 mg BID MAXWELL Administration Metoprolol Tartrate 50 mg 03/05/24 23:20 03/09/24 08:37 Metoprolol Tartrate 50 Mg Tab PO 50 mg Q12HR MAXWELL Administration Pantoprazole Sod
== END 2024-03-09 16:15 | disposition home health service (06) ==
LOC: ANHED 17:40 → ANH2MED 18:35
PROVIDERS: Internal Medicine; Nurse Practitioner Acute Care; Physician Assistant; Admitting Provider General Practice; Emergency Provider Emergency Medicine; PCP Internal Medicine; Visit Provider Nurse Practitioner Acute Care
DX: G93.40 Encephalopathy, unspecified (principal); J96.01 Acute respiratory failure with hypoxia; R33.9 Retention of urine, unspecified; J98.6 Disorders of diaphragm; I10 Essential (primary) hypertension; E78.2 Mixed hyperlipidemia; D64.9 Anemia, unspecified; K21.9 Gastro-esophageal reflux disease without esophagitis; E55.9 Vitamin D deficiency, unspecified; F41.9 Anxiety disorder, unspecified; E78.00 Pure hypercholesterolemia, unspecified; G47.33 Obstructive sleep apnea (adult) (pediatric); F32.A Depression, unspecified; Z20.822 Contact with and (suspected) exposure to COVID-19; Z86.73 Personal history of transient ischemic attack (TIA), and cerebral infarction without residual deficits; Z79.82 Long term (current) use of aspirin; Z98.890 Other specified postprocedural states; Z79.899 Other long term (current) drug therapy
CPT/HCPCS: 36415; 36600; 70450; 70551; 71045; 71275; 74177; 80048; 80053; 80202; 80307; 81003; 82140; 82375; 82550; 82565; 82607; 82728; 82805; 83050; 83540; 83550; 83605; 83735; 84145; 84443; 85025; 85027; 85610; 85730; 86140; 86617; 87040; 87637; 93005; 95816; 96361; 96365; 96366; 96367; 96372; 96375; 97110; 97161; 97165; 97530; 99285; A9270; G0378; J0290; J0696; J1650; J2310; J3370; J3475; J7030; J7120; Q9967

== ENCOUNTER 2025-02-08 10:24 | Outpatient (CLI) | payer MEDICARE, SELFPAY ==
--- NOTE | ~2025-02-08 | MR_ITS ---
MRI of the lumbar spine Clinical History: Radiculopathy Technique: Axial T2-weighted images, and sagittal T1-weighted, T2-weighted, and STIR images were acqu ired. Following intravenous administration of 11 cc ProHance gadolinium, T1-weighted fat-sat imaging was performed in the axial and sagittal planes. Findings: There is posterior and interbody fusion from L4 to L5, bilateral rods intra-articular screw s present, as well as disc fusion device. Probable prior day posterior decompression at L4. No acute fracture or subluxation identified. No suspicious bone marrow signal reality seen. At L1-L2, there is moderate degenerative disc narrowing. There is minimal disc bulge with moderate fa cet arthropathy. No central canal stenosis. There is mild left neural foraminal narrowing. Right neur al foramen preserved. At L2-L3, there is no disc bulge or herniation. There is moderate facet hypertrophy. No spinal canal stenosis or definite neural foraminal narrowing. At L3-L4, there is moderate degenerative disc narrowing. There is diffuse disc bulge and severe facet arthropathy, resulting in severe spinal canal stenosis/thecal sac compression. There is moderate to advanced bilateral neural foraminal narrowing. At L4-L5, there is posterior decompression. No canal stenosis evident. Probable moderate right neural foraminal narrowing and mild left neural foraminal narrowing. At L5-S1, there is disc desiccation with minimal disc bulge. There is severe facet arthropathy. No fr ank central canal stenosis. Probable mild to moderate right neural foraminal narrowing. Left neural f oramen preserved. Paravertebral soft tissues are unremarkable. No suspicious postcontrast enhancement identified. Impression: Postoperative change at the L4-L5 level, as detailed above. Severe degenerative spondylitic changes at L3-L4, as detailed above. Additional mild to moderate degenerative changes, as above. Reviewed, dictated and finalized at [facility]. Impression: Postoperative change at the L4-L5 level, as detailed above. Severe degenerative spondylitic changes at L3-L4, as detailed above. Additional mild to moderate degenerative changes, as above.
--- OUTSIDE RECORDS SUMMARY | 2025-02-08 11:33 | XMS_ITS | Referral Summary ---
Author Organization [facility] D Address [address] [place] [address] Care Team Providers Care Assembly Line Worker Name Role Phone Dejan Ashford MD Primary Care Provider [phone] Encounters Date Type Department Care Team Description 02/05/2025 Telephone [facility] Cardiology [address] [place] [phone] Jared Craft MD 11/23/2024 Orders Only [facility] Cardiology [address] [place] [phone] Otf Henry MD 11/15/2024 1:00 PM CDT Office Visit [facility] Cardiology [address] [place] [phone] Jared Craft MD Essential (primary) hypertension (Primary Dx); Mixed dyslipidemia; Hypertriglyceridemia; Statin intolerance; Myalgia due to statin from Last 3 Months Allergies Active Allergy Reactions Criticality Noted Date Comments Ezetimibe Muscle pain Medium Reaction: Myalgias, Meperidine Other (See comments) Reaction: Nausea, vomiting, , , Pitavastatin Muscle pain Reaction: Myalgias, Qgkibyo-Uyn-Wov Reductase Inhibitors Muscle pain Reaction: Myalgias, Medications potassium chloride ER (KLOR-CON 10) 10 mEq CR tablet take 1 Tablet by oral route once with food 0 0 05/04/20 14 Active polycarbophil (FIBERCON) 625 mg tablet take 1 Capsule by Oral route once At bedtime 0 0 04/15/20 15 Active quinapril (ACCUPRIL) 40 mg tablet take .5 tablet by oral route 2 times every day 0 0 04/15/20 15 Active buPROPion (WELLBUTRIN) 75 mg tablet take 1 tablet by oral route every day 0 0 08/03/20 16 Active Additional Information Patient not taking.Reported on 11/15/2024 omeprazole (PriLOSEC) 40 mg capsule take 1 capsule by oral route 2 times every day before a meal 0 08/03/20 16 Active ascorbic acid, vitamin C, (VITAMIN C) 1,000 mg CR tablet once daily 0 0 08/03/20 16 Active metoprolol (LOPRESSOR) 50 mg tablet take 1 Tablet (50MG) by oral route 2 times every day with meals 180 3 04/19/20 12 Active aspirin (ASPIRIN CHILDRENS) 81 mg chewable tablet chew 1 tablet (81MG) by oral route every day 30 0 04/05/20 06 Active bumetanide (BUMEX) 1 mg tablet take 1 (1MG) by oral route every day 30 0 09/03/20 10 Active citalopram (CeleXA) 20 mg tablet take 1 tablet (20MG) by oral route every morning 0 09/03/20 10 Active topiramate (TOPAMAX) 50 mg tablet take 1 tablet (50MG) by oral route 2 times every day 0 09/03/20 10 Active isosorbide dinitrate (ISORDIL) 30 mg tablet Take 1 tablet (30 mg total) by mouth daily Active cyanocobalamin (Vitamin B-12) 100 mcg tabletIndicatio ns:Prevention of Vitamin B12 Deficiency Take 1 tablet (100 mcg total) by mouth daily Active PNV 16-iron fum,ps-folic-om eg3 35-1-200 mg capsule Take by mouth Active AMOXICILLIN 500 mg capsule TAKE FOUR CAPSULES BY MOUTH ONE HOUR BEFORE APPOINTMENT 0 06/27/20 19 Active ALPRAZolam (XANAX) 0.5 mg tablet Take 1 tablet (0.5 mg total) by mouth 3 (three) times a day as needed Active cholecalciferol (VITAMIN D-3) 50,000 unit capsule TAKE ONE CAPSULE BY MOUTH WEEKLY FOR 8 WEEKS, THEN ONCE MONTHLY FOR TWO MONTHS 08/19/20 21 Active cholestyramine (QUESTRAN) 4 gram packet MIX 1 PACKET WITH LIQUID AND DRINK ONCE DAILY WITH MEALS (AVOID OTHER MEDS WITHIN 1 HOUR BEFORE OR 4-6 HOURS AFTER DOSE) 07/24/20 21 Active nitroglycerin (Nitrostat) 0.4 mg SL tabletIndicatio ns:acute episode of anginal pain Place 1 tablet (0.4 mg total) under the tongue every 5 (five) minutes as needed for chest pain 25 tablet 1 10/07/19 22 Active Additional Information Patient not taking.Reported on 11/15/2024 azelastine (ASTELIN) 137 mcg (0.1 %) nasal spray 06/30/20 22 Active benzonatate (TESSALON) 100 mg capsule TAKE 1 CAPSULE BY MOUTH TWICE DAILY NEEDED FOR COUGH 07/26/20 22 Active cefdinir (OMNICEF) 300 mg capsule TAKE 1 CAPSULE BY MOUTH EVERY 12 HOURS FOR 2 DAYS 07/28/20 22 Active isosorbide mononitrate ER (IMDUR) 30 mg 24 hr tablet Take 30 mg by mouth daily 05/30/20 22 Active neomycin-polymy marito-dexAMETHaso ne (MAXITROL) 3.5mg/mL-10,000 unit/mL-0.1 % ophthalmic suspension INSTILL 1 DROP INTO EACH EYE 4 TIMES DAILY. SHAKE WELL BEFORE EACH USE 06/30/20 22 Active icosapent ethyL (VASCEPA) 1 gram capsule Take 2 capsules (2 g total) by mouth 2 (two) times a day 120 capsule 11 07/07/20 23 Active bempedoic acid 180 mg tablet Take 1 tablet by mouth daily 90 tablet 6 07/07/20 23 Active Additional Information Patient not taking.Reported on 11/15/2024 Repatha SureClick 140 mg/mL pen injector INJECT 1ML UNDER THE SKIN EVERY 14 DAYS 2 mL 01/11/20 25 Active evolocumab (Repatha SureClick) 140 mg/mL pen injector Inject 1 mL (140 mg total) under the skin every 14 (fourteen) days 2 mL 11 11/03/19 24 025 Discontinued Active Problems Problem Noted Date Diagnosed Date Aneurysm 2019 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 She is out of nitroglycerin. I refilled this for her in stressed the importance of her keeping nitroglycerin available should she have any recurrence of coronary spasm. Continue aspirin. Continue working with Dr. Ashford regarding hyperlipidemia. I recommended cardiology follow-up in one year. As she no longer drives in [place], it would be much more convenient for her to follow up closer to home. I recommended that she contact Dr. Ashford for a referral. Assessment & Plan (10/04/2020 10:57 AM BREAKER UNIT ASSEMBLER): Asymptomatic on isosorbide. Assessment & Plan (08/01/2019 7:14 PM BREAKER UNIT ASSEMBLER): Asymptomatic on current regimen. Assessment & Plan (08/02/2018 1:25 PM BREAKER UNIT ASSEMBLER): Asymptomatic on isosorbide. Essential hypertension 08/03/2017 Assessment & Plan (10/07/2021 10:00 AM BREAKER UNIT ASSEMBLER): Blood pressure is well controlled on metoprolol 50 mg b.i.d. and quinapril 20 mg b.i.d.. Continue both. Assessment & Plan (10/04/2020 10:57 AM BREAKER UNIT ASSEMBLER): Blood pressure is adequately controlled on current regimen. No change was made. Assessment & Plan (08/01/2019 7:16 PM BREAKER UNIT ASSEMBLER): Blood pressure is adequately controlled on current regimen. No change was made. Assessment & Plan (08/02/2018 1:25 PM BREAKER UNIT ASSEMBLER): Well controlled on current regimen which was not changed. Assessment & Plan (08/04/2017 7:27 PM BREAKER UNIT ASSEMBLER): Blood pressure is adequately controlled on current regimen. No change was made. Hyperlipidemia 08/03/2017 Assessment & Plan (10/07/2021 10:00 AM BREAKER UNIT ASSEMBLER): Severe dyslipidemia, treatment of which has been challenging given her intolerance of statins and Zetia. It is surprising that her insurance will not cover Repatha. Assessment & Plan (10/04/2020 10:58 AM BREAKER UNIT ASSEMBLER): Lipids today are terrible. She is not currently on Repatha. Will ask staff to investigate on her behalf. Assessment & Plan (08/01/2019 7:16 PM BREAKER UNIT ASSEMBLER): She is on Repatha. Total cholesterol is 178. LDL could not be calculated but HDL is 56, so LDL is no more than 122. Assessment & Plan (08/02/2018 1:25 PM BREAKER UNIT ASSEMBLER): She is on Repatha. She is due for lipids to be checked through her PCP in the near future. Assessment & Plan (08/04/2017 7:27 PM BREAKER UNIT ASSEMBLER): Intolerant of statin therapy. Continue Repatha. Osteoarthritis of cervical spine 06/01/2017 Cervical radiculopathy 06/01/2017 Cervicalgia 05/31/2017 Spinal stenosis of lumbar region 04/19/2017 Pain of foot 05/29/2014 Social History Tobacco Use Types Packs/Day Years Used Date Smoking Tobacco: Never Smokeless Tobacco: Never Tobacco Cessation:Counseling Given: Not Answered Alcohol Use Standard Drinks/Week Comments Yes 1 (1 standard drink = 0.6 oz pur e alcohol) daily Comments Unknown Sex and Gender Information Value Date Recorded Sex Assigned at Not on file Legal Sex Female 4:57 PM BREAKER UNIT ASSEMBLER Gender Identity Not on file Sexual Orientation Not on file Last Filed Vital Signs Vital Sign Reading Time Taken Comments Blood Pressure 138/80 11/15/2024 1:11 PM CDT Pulse 95 11/15/2024 1:11 PM CDT Temperature - - Respiratory Rate - - Oxygen Saturation 96% 11/15/2024 1:11 PM CDT Inhaled Oxygen Concentration - - Weight 62.1 kg (137 lb) 11/15/2024 1:11 PM CDT Height 149.9 cm (4' 11) 11/15/2024 1:11 PM CDT Body Mass Index 27.67 11/15/2024 1:11 PM CDT Plan of Treatment Not on file Procedures Procedure Name Priority Date/Time Associated Diagnosis Comments POCT LIPID PANEL Routine 11/15/2024 12:0 6 AM CDT Mixed dyslipidemia from Last 3 Months Results * POCT lipid panel (11/15/2024 12:06 AM CDT) Cholesterol, POC 290 mg/dL HDL, POC n/a mg/dL Triglycerides, POC 650 mg/dL LDL Cholesterol POC n/a mg/dL Chol/HDL Ratio, POC n/a Non-HDL Cholesterol, POC n/a mg/dL Cholesterol Total, POC 290 mg/dL Capillary blood 11/15/2024 1 2:06 AM CDT Jared Craft MD POINT OF CARE TEST ORDERABLES Fi nal Result from Last 3 Months Insurance T SENIOR SUPPLEMENT [employer] MEDICARE GOLD A[employer] MEDICARE GOLD Advance Directives For more information, please contact: [phone] Documents on File Type Date Recorded Patient Dental Laboratory Assistant Expl anation ADVANCE DIRECTIVE 10/22/2017 12:00 AM Care Teams Assembly Line Worker Relationship Specialty Start Date End Date Dejan Ashford MD [address] [facility] [address] [place] [address] PCP - General 12/04/16
--- OUTSIDE RECORDS SUMMARY | 2025-02-08 11:33 | XMS_ITS | Clinical Summary ---
Author Organization [facility] D Address [address] [place] [address] Care Team Providers Care Supervisor Firearms Name Role Phone Dejan Ashford MD Primary Care Provider [phone] Allergies Active Allergy Reactions Criticality Noted Date Comments Ezetimibe Muscle pain Medium Reaction: Myalgias, Meperidine Other (See comments) Reaction: Nausea, vomiting, , , Pitavastatin Muscle pain Reaction: Myalgias, Yotvheq-Ijc-Ovs Reductase Inhibitors Muscle pain Reaction: Myalgias, Medications [...] MOUTH TWICE DAILY NEEDED FOR COUGH 07/26/20 Active cefdinir (OMNICEF) 300 mg capsule TAKE 1 CAPSULE BY MOUTH EVERY 12 HOURS FOR 2 DAYS 07/28/20 Active isosorbide mononitrate ER (IMDUR) 30 mg 24 hr tablet Take 30 mg by mouth daily 05/30/20 Active neomycin-polymy marito-dexAMETHaso ne (MAXITROL) 3.5mg/mL-10,000 unit/mL-0.1 % ophthalmic suspension INSTILL 1 DROP INTO EACH EYE 4 TIMES DAILY. SHAKE WELL BEFORE EACH USE 06/30/20 Active icosapent ethyL (VASCEPA) 1 gram capsule Take 2 capsules (2 g total) by mouth 2 (two) times a day 120 capsule 11 07/07/20 Active bempedoic acid 180 mg tablet Take [...] 08/02/2018 Assessment & Plan (10/07/2021 9:59 AM VASCULAR MANAGER): Asymptomatic. She is out of nitroglycerin. I refilled this for her in stressed the importance of her keeping nitroglycerin available should she have any recurrence of coronary spasm. Continue aspirin. Continue working with Dr. Ashford regarding hyperlipidemia. I recommended cardiology follow-up in one year. As she no longer drives in [place], it would be much more convenient for her to follow up closer to home. I recommended that she contact Dr. Ashford for a referral. Assessment & Plan (10/04/2020 10:57 AM VASCULAR MANAGER): Asymptomatic on isosorbide. Assessment & Plan (08/01/2019 7:14 PM VASCULAR MANAGER): Asymptomatic on current regimen. Assessment & Plan (08/02/2018 1:25 PM VASCULAR MANAGER): Asymptomatic on isosorbide. Essential hypertension 08/03/2017 Assessment & Plan (10/07/2021 10:00 AM VASCULAR MANAGER): Blood pressure is well controlled on metoprolol 50 mg b.i.d. and quinapril 20 mg b.i.d.. Continue both. Assessment & Plan (10/04/2020 10:57 AM VASCULAR MANAGER): Blood pressure is adequately controlled on current regimen. No change was made. Assessment & Plan (08/01/2019 7:16 PM VASCULAR MANAGER): Blood pressure is adequately controlled on current regimen. No change was made. Assessment & Plan (08/02/2018 1:25 PM VASCULAR MANAGER): Well controlled on current regimen which was not changed. Assessment & Plan (08/04/2017 7:27 PM VASCULAR MANAGER): Blood pressure is adequately controlled on current regimen. No change was made. Hyperlipidemia 08/03/2017 Assessment & Plan (10/07/2021 10:00 AM VASCULAR MANAGER): Severe dyslipidemia, treatment of which has been challenging given her intolerance of statins and Zetia. It is surprising that her insurance will not cover Repatha. Assessment & Plan (10/04/2020 10:58 AM VASCULAR MANAGER): Lipids today are terrible. She is not currently on Repatha. Will ask staff to investigate on her behalf. Assessment & Plan (08/01/2019 7:16 PM VASCULAR MANAGER): She is on Repatha. Total cholesterol is 178. LDL could not be calculated but HDL is 56, so LDL is no more than 122. Assessment & Plan (08/02/2018 1:25 PM VASCULAR MANAGER): She is on Repatha. She is due for lipids to be checked through her PCP in the near future. Assessment & Plan (08/04/2017 7:27 PM VASCULAR MANAGER): Intolerant of statin therapy. Continue Repatha. Osteoarthritis of cervical spine 06/01/2017 Cervical radiculopathy 06/01/2017 Cervicalgia 05/31/2017 Spinal stenosis of lumbar region 04/19/2017 Pain of foot 05/29/2014 Encounters Date Type Department Care Team Description 02/05/2025 Telephone [facility] Medical [facility] Cardiology [address] [place] [address] Jared Craft MD 11/23/2024 Orders Only [facility] Cardiology [address] [place] [address] [address] [place] [phone] Otf Henry MD 11/15/2024 1:00 PM CDT Office Visit [facility] Cardiology [address] [facility] [address] [place] [phone] Jared Craft MD Essential (primary) hypertension (Primary Dx); Mixed dyslipidemia; Hypertriglyceridemia; Statin intolerance; Myalgia due to statin from Last 3 Months Surgical History Surgery Date Site/Laterality Comments CHOLECYSTECTOMY 09/06/2002 - 09/05/2003 Cholecystectomy HYSTERECTOMY 09/06/1977 - 09/05/1978 Hysterectomy OTHER SURGICAL HISTORY 09/06/1979 - 09/05/1980 Carical fusion FOOT SURGERY L Foot Surgery SPINE SURGERY LUMBAR FUSION CEREBRAL ANEURYSM REPAIR CATARACT EXTRACTION BLADDER SURGERY ROTATOR CUFF REPAIR HIP FRACTURE SURGERY CERVICAL SPINE SURGERY Medical History Medical History Date Comments Hypertension Hypertension Brain aneurysm 10/2018 Hyperlipidemia Stroke (HCC) Family History Medical History Relation Name Comments Heart disease Brother Aneurysm Father Coronary artery disease Father Thomas nary Artery Disease; Coronary artery disease Mother Thomas nary Artery Disease; Relation Name Status Comments Brother Father Mother Social History Tobacco Use Types Packs/Day Years Used Date Smoking Tobacco: Never Smokeless Tobacco: Never Tobacco Cessation:Counseling Given: Not Answered Alcohol Use Standard Drinks/Week Comments Yes 1 (1 standard drink = 0.6 oz pur e alcohol) daily Comments Unknown Sex and Gender Information Value Date Recorded Sex Assigned at Not on file Legal Sex Female 4:57 PM VASCULAR MANAGER Gender Identity Not on file Sexual Orientation Not on file Obstetrics History Last Filed Vital Signs Vital Sign Reading [...] 11/15/2024 1:11 PM CDT Plan of Treatment Health Maintenance Due Date Last Done Comments Depression Screening 1945 Fall Risk Assessment 1945 Hepatitis C Screening 1945 Osteoporosis Screening-Bone Density Scan 1945 Hepatitis B Screening 1965 Well Visit 65+ 02/11/2012 Zoster Vaccine (2 of 3) 09/05/2014 07/11/2014 DTaP/Tdap/Td Vaccine (2 - Td or Tdap) 02/27/2024 02/26/2014 Influenza Vaccine (Season Ended) 2025 06/14/2018, 06/30/2017, 07/07/2016, Additional history exists Pneumococcal vaccine 65+ Completed 016, 05/20/2016, 07/14/2015 Procedures Procedure Name Priority Date/Time Associated Diagnosis [...] nal Result from Last 3 Months Insurance [employer] MEDICARE GOLD A[employer] MEDICARE GOLD Advance Directives For more information, please contact: [phone] Documents on File Type Date Recorded Patient Fan Balancer Expl anation ADVANCE DIRECTIVE 10/22/2017 12:00 AM Care Teams Supervisor Firearms Relationship Specialty Start Date End Date Dejan Ashford MD [address] [facility] [address] [place] [address] PCP - General 12/04/16
--- OUTSIDE RECORDS SUMMARY | 2025-02-08 11:33 | XMS_ITS | Encounter Summary ---
Author Organization [facility] Healthcare Address [address] [place] [address] Care Team Providers Care Ethnic Studies Professor Name Role Phone Dejan Ashofrd MD Primary Care Provider Encounter Details Date Type Department Care Team (Late st Contact Info) Description 02/05/2025 Telephone [facility] Cardiology [address] [place] [address] Jared Craft MD [address] [address] Social History Tobacco Use Types Packs/Day Years Used Date Smoking Tobacco: Never Smokeless Tobacco: Never Alcohol Use Standard Drinks/Week Comments Yes 1 (1 standard drink = 0.6 oz pur e alcohol) daily Comments Unknown Sex and Gender Information Value Date Recorded Sex Assigned at Not on file Legal Sex Female 4:57 PM OPTOMETRIST Gender Identity Not on file Sexual Orientation Not on file documented as of this encounter Miscellaneous Notes * Telephone Encounter - Trisha Deleon MA - 02/05/2025 11:47 AM CDT Lab orders printed and placed at front desk person for patient to curing pickling packer * Telephone Encounter - Yazmin Dyson - 02/05/2025 11:30 AM CDT Pt is going to be stopping in to curing pickling packer the printed orders for her blood work that she is needing to have done. Please advise thank you Contact: documented in this encounter Plan of Treatment Not on file documented as of this encounter Visit Diagnoses Not on filedocumented in this encounter Care Teams Ethnic Studies Professor Relationship Specialty Start Date End Date Dejan Ashford MD [address] [facility] [address] [place] [address] PCP - General 12/04/16 documented as of this encounter
--- OUTSIDE RECORDS SUMMARY | 2025-02-08 11:34 | XMS_ITS | Clinical Summary ---
Author Organization [facility] Address [address] [facility] [place] [address] Care Team Providers Care Capacity Planner Name Role Phone Dejan Ashford MD Primary Care Provider [phone] Sherly Waddell RN Unavailable [phone] Source Comments [facility],non-owned Affiliates and Associated Physician Practices is amultiple site organization consisting of ambulatory clinics and hospital sitesin [place], [place], [place] and [place]. This disclosure is being madepursuant to the Care Everywhere program and may not contain all information available regarding this patient. Last updated 18.[facility] Allergies Active Allergy Reactions Criticality Noted Date Comments Ezetimibe Myalgias Medium Reaction: Myalgias, Hmg-Coa-R Inhibitors Myalgias Reaction: Myalgias, Meperidine Nausea and/or Vomiting Medium 03/14/2014 Reaction: Nausea, vomiting, , , Morphine Itching High 10/01/2018 Pitavastatin Myalgias Reaction: Myalgias, Vicryl Sutures [Other] Other Medium 01/04/2019 Per Patient: They abscess; they won't dissolve. Medications * Be aware that medications may not be up to date on this document. Alwaysverify current medications with the patient. topiramate (Topamax) 50 MG tablet Take 1 (one) tablet by mouth 2 times daily 09/03/20 10 Active metoprolol tartrate (LOPRESSOR) 50 MG tablet Take 1 (one) tablet by mouth 2 times daily 04/19/20 12 Active potassium chloride ER (KLOR-CON) 10 MEQ tablet 1 (one) tablet once daily 05/04/20 14 Active bumetanide (BUMEX) 1 MG tablet 1 (one) tablet once daily 09/03/20 10 Active aspirin (ASPIRIN) 81 MG chew tablet 1 (one) tablet 04/05/20 06 Active Ascorbic Acid 1000 MG 1 (one) tablet once daily 08/03/20 16 Active omeprazole (PRILOSEC) 40 MG capsule Take 1 (one) capsule by mouth daily before breakfast Active cyanocobalamin (VITAMIN B-12) 100 MCG tablet Take 1 (one) tablet by mouth once daily Active Evolocumab (REPATHA SC) Active acetaminophen (TYLENOL) 325 MG tablet Take 2 tablets by mouth every 6 hours as needed Maximum allowable Acetaminophen amount = 4 Grams (4000 mg) / 24 hours. 01/18/20 19 Active azelastine (Astelin) 0.1 % nasal spray USE 1 SPRAY(S) IN EACH NOSTRIL EVERY 12 HOURS 06/30/20 22 Active Cholecalciferol 1.25 MG (07082 UT) TAKE ONE CAPSULE BY MOUTH WEEKLY FOR 8 WEEKS, THEN ONCE MONTHLY FOR TWO MONTHS 08/19/20 21 Active isosorbide mononitrate CR 24hr (Imdur) 30 MG tablet Take 1 (one) tablet by mouth once daily 05/30/20 22 Active nitroGLYCERIN (Nitrostat) 0.4 MG tablet Dissolve 1 (one) tablet under the tongue As needed 10/07/19 22 Active lisinopril (Prinivil; Zestril) 40 MG tablet Take 1 (one) tablet by mouth once daily 10/24/19 25 Active quinapril (ACCUPRIL) 40 MG tablet 1 (one) tablet 2 times daily 04/15/20 15 025 Discontin ued(List Clean-Up) buPROPion (Wellbutrin) 75 MG tablet 75 mg 08/03/20 16 025 Discontin ued(Tx Complete) citalopram (CELEXA) 20 MG tablet Take 1 (one) tablet by mouth once daily 025 Discontin ued(Tx Complete) Vit-Fe Fumarate-FA ( VITAMIN PO) Take by mouth once daily Discontin ued(List Clean-Up) ALPRAZolam (XANAX) 0.5 MG tablet Take 1 (one) tablet by mouth 3 times daily as needed for Anxiety Discontin ued(Clini asya Decision) docusate sodium (COLACE) 100 MG capsule Take 1 capsule by mouth 2 times daily 01/18/20 Discontin ued(List Clean-Up) neomycin-polymy marito-dexameth (Maxitrol) ophthalmic suspension INSTILL 1 DROP INTO EACH EYE 4 TIMES DAILY. SHAKE WELL BEFORE EACH USE 06/30/20 Discontin ued(List Clean-Up) Kfbtzm-TyFso-Ny Po-FA-Garrison 3 (Concept DHA) 53.5-38-1 MG CAPS Discontin ued(List Clean-Up) cefdinir (Omnicef) 300 MG capsule TAKE 1 CAPSULE BY MOUTH EVERY 12 HOURS FOR 2 DAYS 07/28/20 025 Discontin ued(List Clean-Up) sertraline (Zoloft) 50 MG tablet Take 1 (one) tablet by mouth once daily 11/03/19 Discontin ued(Clini asya Decision) Active Problems Problem Noted Date Diagnosed Date History of cerebral aneurysm 01/11/2025 Assessment & Plan (01/11/2025 10:18 AM CDT): - s/p craniotomy 09/2018 - CTM Chronic diastolic heart failure 01/11/2025 Assessment & Plan (01/11/2025 10:18 AM CDT): - ASA -metoprolol tartrate 50 mg p.o. b.i.d. -lisinopril 40 mg p.o. daily -Bumex 1 mg p.o. daily -Imdur 30 mg p.o. daily Coronary artery disease 01/10/2025 Assessment & Plan (01/11/2025 10:18 AM CDT): - ASA -metoprolol tartrate 50 mg p.o. b.i.d. -lisinopril 40 mg p.o. daily -Bumex 1 mg p.o. daily -Imdur 30 mg p.o. daily Hypertension 01/10/2025 Assessment & Plan (01/11/2025 10:18 AM CDT): - ASA -metoprolol tartrate 50 mg p.o. b.i.d. -lisinopril 40 mg p.o. daily -Bumex 1 mg p.o. daily -Imdur 30 mg p.o. daily Hyperlipidemia 01/10/2025 Assessment & Plan (01/11/2025 10:18 AM CDT): - ASA -metoprolol tartrate 50 mg p.o. b.i.d. -lisinopril 40 mg p.o. daily -Bumex 1 mg p.o. daily -Imdur 30 mg p.o. daily Depression 01/10/2025 Assessment & Plan (01/11/2025 10:18 AM CDT): - endorsed stress at home and being upset with her leading her to take a large amount of her Xanax in a suicide attempt - psychiatry following, advised that it is okay to discontinue sitter - CIWA, no signs of withdrawal so far - holding home sertraline per psych Suicidal ideation 01/09/2025 Assessment & Plan (01/11/2025 10:18 AM CDT): - endorsed stress at home and being upset with her leading her to take a large amount of her Xanax in a suicide attempt - psychiatry following, advised that it is okay to discontinue sitter - CIWA, no signs of withdrawal so far - holding home sertraline per psych Hypokalemia 01/09/2025 Assessment & Plan (01/11/2025 10:18 AM CDT): - CTM and replete PRN - continue home potassium 10 mEq p.o. 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 Vertigo 09/30/2018 Cerebral aneurysm 09/30/2018 Resolved Problems Problem Noted Date Diagnosed Date Resolved Date Normocytic anemia 01/09/2025 01/11/2025 Encounters Date Type Department Care Team Description 01/09/2025 7:40 PM CDT - 01/11/2025 5:40 PM CDT Hospital Encounter [facility] 8[address] ACUTE [address] [place] [address] Vinny Hanks MD Lorber, Steven A, MD Albousen, Youssef, MD Felgenhauer, Joshua, MD Emergency Medicine Discharge Disposition: Home or Self Care 01/09/2025 Travel from Last 3 Months Family History Medical History Relation Name Comments CAD (Coronary Artery Disease) Brother CAD (Coronary Artery Disease) Father CAD (Coronary Artery Disease) Mother Relation Name Status Comments Brother Father Mother Social History Tobacco Use Types Packs/Day Years Used Date Smoking Tobacco: Never Smokeless Tobacco: Never Tobacco Cessation:Counseling Given: No Alcohol Use Standard Drinks/Week Comments Yes 7 (1 standard drink = 0.6 oz pur e alcohol) occasionally AUDIT-C Answer Date Recorded Q1: How often do you have a drink containing alcohol? 4 or more times a week 01/10/2025 Q2: How many drinks containi ng alcohol do you have on a typical day when you are drinking? 1 or 2 Q3: How often do you have si x or more drinks on one occasion? Never 01/10/2025 Overall Financial Resource Strain (CARDIA) Answe r Date Recorded How hard is it for you to pa y for the very basics like food, housing, medical care, and heating? Not hard at all 01/10/2025 [facility] [place] [facility] - Occupational Stress Questionnaire Answer Date Recorded Do you feel stress - tense, restless, nervous, or anxious, or unable to sleep at night because your mind is troubled all the time - these days? Not at all 01/10/2025 Hunger Vital Sign Answer Date Recorded Within the past 12 months, y ou worried that your food would run out before you got the money to buy more. Never true 01/11/20 25 Within the past 12 months, t he food you bought just didn't last and you didn't have money to get more. Never true 01/10/2025 PRAPARE - Transportation Answer Date Re corded In the past 12 months, has l ack of transportation kept you from medical appointments or from getting medications? No 03/2025 In the past 12 months, has l ack of transportation kept you from meetings, work, or from getting things needed for daily living? No 01/10/2025 Housing Stability Vital Sign Answer Yovanny e Recorded In the last 12 months, was t here a time when you were not able to pay the mortgage or rent on time? No 01/10/2025 In the past 12 months, how m any times have you moved where you were living? 0 01/10/2025 At any time in the past 12 m [facility], were you homeless or living in a intermediate (including now)? No 01/10/2025 Comments No Sex and Gender Information Value Date Recorded Sex Assigned at Not on file Legal Sex Female 6:30 AM ANALYSIS MGR Gender Identity Not on file Sexual Orientation Not on file Last Filed Vital Signs Vital Sign Reading Time Taken Comments Blood Pressure 140/66 01/11/2025 4:02 PM CDT Pulse 84 01/11/2025 4:02 PM CDT Temperature 37.5 C (99.5 F) 01/11/2025 4:02 PM CDT Respiratory Rate 16 01/11/2025 4:02 PM CDT Oxygen Saturation 97% 01/11/2025 4:02 PM CDT Inhaled Oxygen Concentration - - Weight 67.3 kg (148 lb 5.9 oz) 01/10/2025 6:00 P M CDT Height 149.9 cm (4' 11.02) 01/10/2025 6:00 PM C DT Body Mass Index 29.95 01/10/2025 6:00 PM CDT Plan of Treatment Health Maintenance Due Date Last Done Comments BONE DENSITY TESTING 1945 HEPATITIS C SCREENING 02/05/1965 DTAP/TDAP/TD VACCINES (1 - Tdap) 1966 PNEUMOCOCCAL VACCINE 50+ (1 of 2 - PCV) 1966 ZOSTER VACCINE (1 of 2) 1997 Respiratory Syncytial Virus (RSV) Vaccine Pt: or over 60 yrs (1 - 1-dose 75+ series) 2022 COVID-19 VACCINE ( - season) 2024 07/24/2021, 10/18/2020, 09/17/2020 DEPRESSION SCREENING 09/06/2024 MEDICARE AWV CALENDAR YEAR 2024 INFLUENZA VACCINE (Season Ended) 2025 07/24/2021, 06/14/2018, 07/07/2016, Additional history exists HEPATITIS B VACCINE Aged Out No longe r eligible based on patient's age to complete this topic HIB VACCINE Aged Out No longer eligi ble based on patient's age to complete this topic HPV VACCINE Aged Out No longer eligi ble based on patient's age to complete this topic MENINGOCOCCAL (Group B) VACCINE SHARED DECISION-MAKING Aged Out No longer eligible based on patient's age to complete this topic MENINGOCOCCAL GROUPS A/C/Y/W VACCINE Aged Out No longer eligible based on patient's age to complete this topic Medical Devices Implanted Type Area Psychologist Chief Device Identifier Shelf Expiration Date Model / Serial / Lot Coil Hydroframe Hdrcl Vtrk 15cm 5mm 10 Implanted:Qty: 1 on 10/04/2018 at [facility] Right: [employer] 06/05/2023 7110-051 / [id number] F Description:Gurdeep Roa Interventional Attending Coil Hydroframe Hdrcl Vtrk 33cm 8mm 10 Implanted:Qty: 1 on 10/04/2018 at [facility] Right: [employer] 12/04/2022 [id number] / [id number] Description:Gurdeep Roa Interventional Attending Coil Hydrosoft 6cm 3mm 10 Coil Strch Rs Implanted:Qty: 1 on 10/04/2018 at [facility] Right: [employer] 05/06/2023 7110-030 6 / / [id number] Description:Gurdeep Roa Interventional Attending Coil Hydrosoft 6cm 2mm Embl 3d Implanted:Qty: 1 on 10/04/2018 at [facility] Right: [employer] 05/06/2023 7110-020 6 / / [id number] 6 Description:Gurdeep Roa Interventional Attending Graft Tissue Drgn + Bvn Clgn Mtrx 5x4in Implanted:Qty: 1 on 01/11/2019 by Carloz Trent MD at [facility] Right: [employer]ranial [employer] 06/05/2021 [id number] / / [id number] Impl Orbt 38x33x.8mm Mdpr Rt Trm Off The Implanted:Qty: 1 on 01/11/2019 by Carloz Trent MD at [facility] Right: Cranial [employer] 11/03/2026 [id number] / / [id number] Graft Snth Tissue 43p50s0op Pe Por Mdpr Implanted:Qty: 1 on 01/11/2019 by Carloz Trent MD at [facility] Right: Cranial [employer] 11/04/2027 [id number] / / [id number] Screw 1.5mm 4mm Crnmxf Slf Drl Xdr Implanted:Qty: 13 on 01/11/2019 by Carloz Trent MD at [facility] Right: Cranial [employer] 91-6704 / / Clip Anrsm 11mm Ysrg 7.8mm Crbrl Ti Str Implanted:Qty: 1 on 01/11/2019 by Johnathon Luna MD at [facility] Right: Cranial [employer] 03/05/2026 [id number] / / [id number] Clip Anrsm Slvr 6.5mm Ysrg 6mm Opn Std - [id number] Implanted:Qty: 1 on 01/11/2019 by Johnathon Luna MD at [facility] Right: [employer]ranial [employer] 08/05/2025 [id number] / [id number] / Plate Str 15mm 2 Hl Ti Crnmxf Thinflap Implanted:Qty: 2 on 01/11/2019 by Carloz Trent MD at [facility] Right: Cranial [employer] 19-1005 / / Cover Bur Hl .3mm 18.5mm Thinflap Bnt Implanted:Qty: 2 on 01/11/2019 by Carloz Trent MD at [facility] Right: Cranial [employer] [id number] / / Explanted Type Area Psychologist Chief Device Identifier Shelf Expiration Date Model / Serial / Lot Clip Anrsm 9mm Ysrg Std 7mm Opn Phynox - [id number] Explanted:Qty: 1 on 01/11/2019 by Johnathon Luna MD at [facility] Right: Cranial [employer] 09/21/2028 [id number] / [id number] / Procedures Procedure Name Priority Date/Time Associated Diagnosis Comments SARS-COV-2 (COVID-19) RAPID Routine 01/11/2025 12:59 PM CDT CARDIAC EKG ORDER 01/11/2025 12: 12 PM CDT CBC W/O DIFFERENTIAL AM Draw 01/11/2025 11:09 AM CDT BASIC METABOLIC PANEL (CALCIUM TOTAL) AM Draw 01/11/2025 11:09 AM CDT MAGNESIUM BLOOD AM Draw 01/11/2025 11:09 AM CDT PHOSPHORUS BLOOD AM Draw 01/11/2025 11:0 9 AM CDT PT EVAL AND TREAT Routine 01/11/2025 8:5 5 AM CDT OT EVAL AND TREAT Routine 01/11/2025 8: 55 AM CDT EKG 12-LEAD Routine 01/10/2025 1:15 PM CDT Suicide attempt by benzodiazepine overdose (HCC) Suicidal ideation Normocytic anemia Hypokalemia CARDIAC EKG ORDER 01/10/2025 10: 56 AM CDT CBC W/O DIFFERENTIAL STAT 01/10/2025 3:36 AM CDT URINALYSIS REFLEX TO MICROSCOPIC NO CULTURE STAT 01/10/2025 2:45 AM CDT URINE DRUG SCREEN IMMUNOASSAY STAT 01/10/2025 2:45 AM CDT DRUG SCREEN EXPANDED TOXICOLOGY URINE PANEL STAT 01/10/2025 2:45 AM CDT VITAMIN D 25-HYDROXY JUAN 01/10/2025 2:05 AM CDT TSH REFLEX FREE T4 STAT 01/10/2025 2: 05 AM CDT PT-INR [facility] STAT 01/10/2025 2:05 AM CDT PHOSPHORUS BLOOD STAT 01/10/2025 2:05 AM CDT MAGNESIUM BLOOD STAT 01/10/2025 2:05 AM CDT BASIC METABOLIC PANEL (CALCIUM TOTAL) STAT 01/10/2025 2:05 AM CDT FOLATE JUAN 01/10/2025 2:05 AM CDT VITAMIN B12 JUAN 01/10/2025 2:05 AM CDT FERRITIN JUAN 01/10/2025 2:05 AM CDT IRON + TRANSFERRIN PANEL STAT 01/10/2025 2:05 AM CDT LACTIC ACID BLOOD STAT 01/10/2025 2:0 5 AM CDT TRICYCLICS SCREEN BLOOD STAT 01/09/2025 9:34 PM CDT SALICYLATE LEVEL BLOOD STAT 01/09/2025 9:34 PM CDT ACETAMINOPHEN LEVEL STAT 01/09/2025 9 :34 PM CDT CBC W AUTO DIFFERENTIAL STAT 01/09/2025 9:34 PM CDT COMPREHENSIVE METABOLIC PANEL STAT 01/09/2025 9:34 PM CDT ALCOHOL ETHYL BLOOD STAT 01/09/2025 9 :34 PM CDT XR CHEST 1VW PORTABLE STAT 01/09/2025 8:15 PM CDT Suicide attempt by benzodiazepine overdose (HCC) from Last 3 Months Results * SARS-COV-2 (COVID-19) RAPID (01/11/2025 12:59 PM CDT) COVID-19 PCR Not detected Not detected 01/12/20 25 4:35 PM CDT [facility] Microbiology SPECIMEN FROM NASOPHARYNGEAL STRUCTURE / Unknown Collection / Unknown 01/11/2025 12:59 PM CDT 01/11/2025 3:59 PM CDT [facility] - 01/11/2025 4:35 PM CDT The CepCover Lockscreenid Xpert Xpress SARS-COV-2 has been authorized by the Food and Drug Administration (FDA) under an Emergency Use Authorization (EUA). This test has been validated in accordance with the FDA's guidance document Policy for Diagnostic Testing in Laboratories Certified to perform High Complexity Testing under CLIA prior to Emergency Use Authorization for Coronavirus Disease-2019 during the Public Health Emergency issued on November 04, 2019. FDA independent review of this validation is pending. This test is only authorized for the duration of the time the declaration that circumstances exist justifying the authorization of emergency use of in vitro diagnostic tests for detection of SARS-COV-2 virus and/or diagnosis of COVID-19 infection under 564(b) (1) of the Act. 21 U.S.C. 360bbb-3 (b) (1), unless the authorization is terminated or revoked sooner. Fact Sheets for this EUA assay are available upon request. us Buster Guevara MD LAB - MICROBIOLOGY ORDERAB LES Final Result [facility] [address] [place] [id number], [facility] [phone] * CARDIAC EKG ORDER (01/11/2025 12:12 PM CDT) Only the most recent of2 resultswithin the time period is included. Narrative 01/11/2025 12:12 PM CDT Ordered by an unspecified provider. us Scanned Document CARDIAC SERVICES ORDERABLES Fin al Result * (ABNORMAL) CBC W/O DIFFERENTIAL (01/11/2025 11:09 AM CDT) Only the most recent of2 resultswithin the time period is included. WBC 11.9(H) 4.0 - 10.7 x10E9/L 01/11/2025 11:34 AM [facility] RBC Count 3.39(L) 3.90 - 5.20 x10E12/L 01/11/2025 11:34 AM [facility] Hemoglobin 11.5(L) 11.9 - 15.8 g/dL 01/11/2025 11:34 AM [facility] Hematocrit 33.1(L) 34.8 - 46.1 % 01/11/2025 11:34 AM [facility] MCV 97.6 80.0 - 98.0 fL 01/11/2025 11:34 AM [facility] MCH 33.9(H) 26.7 - 33.6 pg 01/11/2025 11:34 AM [facility] MCHC 34.7 31.7 - 36.3 g/dL 01/11/2025 11:34 AM [facility] RDW-CV 13.3 11.3 - 14.8 % 01/11/2025 11:34 AM [facility] Platelet Count 204 150 - 420 x10E9/L 01/11/2025 11:34 AM [facility] MPV 9.6 7.8 - 11.4 fL 01/11/2025 11:34 AM [facility] Blood BLOOD SPECIMEN / Unknown Lab Venipuncture / Unknown 01/11/2025 11:09 AM CDT 01/11/2025 11:23 AM CDT us Buster Guevara MD LAB - HEMATOLOGY ORDERABLE S Final Result [facility] [address] [place] [address], [facility] [phone] * (ABNORMAL) BASIC METABOLIC PANEL (CALCIUM TOTAL) (01/11/2025 11:09 AM CDT) Only the most recent of2 resultswithin the time period is included. BUN 14 7 - 26 mg/dL 01/11/2025 12:26 PM [facility] Creatinine 0.80 0.56 - 0.96 mg/dL 01/11/2025 12:26 PM [facility] Sodium 141 136 - 145 mmol/L 01/11/2025 12:26 PM [facility] Potassium 4.7(H) 3.5 - 4.5 mmol/L 01/11/2025 12:26 PM [facility] Chloride 107 98 - 107 mmol/L 01/11/2025 12:26 PM [facility] CO2 21(L) 22 - 29 mmol/L 01/11/2025 12:26 PM [facility] Glucose 113(H) 70 - 99 mg/dL 01/11/2025 12:26 PM [facility] Calcium 9.5 8.4 - 10.2 mg/dL 01/11/2025 12:26 PM [facility] Anion Gap 13 6 - 16 01/11/2025 12:26 PM [facility] BUN/Creatinine Ratio 18 7 - 23 01/11/2025 12:26 PM [facility] Osmolality Calculated 293 275 - 295 mOsm/kg 01/11/2025 12:26 PM [facility] eGFR by CKD-EPI 76(L) >=90 mL/min/1.7 3 m2 01/11/2025 12:26 PM [facility] Blood BLOOD SPECIMEN / Unknown Lab Venipuncture / Unknown 01/11/2025 11:09 AM CDT 01/11/2025 11:23 AM CDT Buster Guevara MD LAB - CHEMISTRY ORDERABLES Final Result Performing Organization Address City/[facility]/ZIP Co de Phone Number [address] [address], [facility] [phone] * PHOSPHORUS BLOOD (01/11/2025 11:09 AM CDT) Only the most recent of2 resultswithin the time period is included. Phosphorus 3.0 2.9 - 5.1 mg/dL 01/11/2025 12:26 PM CDT [facility] Blood BLOOD SPECIMEN / Unknown Lab Venipuncture / Unknown 01/11/2025 11:09 AM CDT 01/11/2025 11:23 AM CDT Buster Guevara MD LAB - CHEMISTRY ORDERABLES Final Result Performing Organization Address [facility] Co de Phone Number [address] [address], [place] [phone] * MAGNESIUM BLOOD (01/11/2025 11:09 AM CDT) Only the most recent of2 resultswithin the time period is included. Magnesium 1.8 1.6 - 2.6 mg/dL 01/11/2025 12:26 PM CDT [facility] Blood BLOOD SPECIMEN / Unknown Lab Venipuncture / Unknown 01/11/2025 11:09 AM CDT 01/11/2025 11:23 AM CDT Buster Guevara MD LAB - CHEMISTRY ORDERABLES Final Result [address] [address], [place] [phone] * EKG 12-LEAD (01/10/2025 1:15 PM CDT) Ventricular Rate 81 BPM [facility] MUSE Atrial Rate 81 BPM [facility] MUSE P-R Interval 120 ms [facility] QRS Duration ms 82 ms [facility] Q-T Interval ms 424 ms [facility] MUSE QTC Calculation (Bezet) 492 ms [facility] MUSE Calculated P [place] 0 degrees [facility] Calculated R [place] 4 degrees [facility] Calculated T [place] 16 degrees [facility] Interpretation EKG NORMAL SINUS RHYTHM PROLONGED QT ABNORMAL ECG WHEN COMPARED WITH ECG OF 14-DEC-2019 20:33, NO SIGNIFICANT CHANGE WAS FOUND Confirmed by PHAM PIERRE, MARY CARMEN ([id number]) on 01/10/2025 10:02:55 PM [facility] MUSE 01/10/2025 1:15 PM CDT 01/10/2025 10:02 PM CDT Glendy Reyna DIRECTOR [employer] ECG ORDERABLES Edited R esult - Final [facility] MUSE * (ABNORMAL) DRUG SCREEN EXPANDED TOXICOLOGY URINE PANEL (01/10/2025 2:45 AM CDT) Pathologist [facility] Expanded Drug Screen, Urine Positive(A) Negative 01/10/2025 11:10 AM CDT [facility] Findings Acetaminophen Alprazolam Caffeine Diphenhydramine Fexofenadine Lidocaine Lisinopril Loperamide Monoethylglycine xylidide (MEGX) Quinine/Quinidin e Sertraline Metoprolol tartrate 01/10/2025 11:10 AM CDT [facility] Urine URINE / Unknown Collection / Unknown 01/10/2025 2:45 AM CDT 01/10/2025 6:19 AM CDT Narrative [facility] - 01/10/2025 11:10 AM CDT Testing performed by Liquid Chromatography-Quadrupole Time Flight Mass Spectrometry. While mass spectrometry is highly sensitive and specific, false-positive and false-negative findings may occur in rare circumstances. If consultation is needed, please contact the Clinical Pathology Resident dean of instruction at [phone] (M-F, 8 am 5 pm) or [phone] after hours. This test does not include THC or barbiturates. This testing was developed by the [facility] in keeping with CLIA requirements. The test has not been cleared or approved by the U.S. Food and Drug Administration. Vinny Hanks MD LAB - URINE CHEMISTRY ORDERABLES Final Result [facility] [address] [place], [place] [address] [phone] * (ABNORMAL) URINALYSIS REFLEX TO MICROSCOPIC NO CULTURE (01/10/2025 2:45 AM T) Color UA Yellow Yellow, Straw 01/10/2025 3:04 AM [facility] Clarity UA Clear Clear 01/10/2025 3:04 AM [facility] Glucose UA Normal Normal 01/10/2025 3:04 AM [facility] Bilirubin UA Negative Negative 01/10/2025 3:04 AM [facility] Ketone UA Negative Negative 01/10/2025 3:04 AM [facility] Specific Pearson UA 1.016 1.005 - 1.030 01/10/2025 3:04 AM [facility] Blood UA Negative Negative 01/10/2025 3:04 AM [facility] pH UA 5.5 5.0 - 8.0 pH 01/10/2025 3:04 AM [facility] Protein UA Negative Negative 01/10/2025 3:04 AM [facility] Urobilinogen UA Normal Normal mg/dL 01/10/2025 3:04 AM [facility] Nitrite UA Negative Negative 01/10/2025 3:04 AM [facility] Leukocyte Esterase UA 75 AMY/uL(A) Negative 01/10/2025 3:04 AM [facility] RBC UA 0-2 0 - 5 # /hpf 01/10/2025 3:04 AM [facility] WBC UA 21-50(A) 0 - 5 # /hpf 01/10/2025 3:04 AM [facility] [facility] Bacteria UA None Seen None Seen 01/10/2025 3:04 AM [facility] Squamous Epithelial Cells 3-5 0 - 5 /hpf 01/10/2025 3:04 AM T [facility] Mucus UA 1+ /LPF 01/10/2025 3:04 AM [facility] Hyaline Casts 0-2 0 - 2 /LPF 01/10/2025 3:04 AM [facility] Urine URINE SPECIMEN OBTAINED BY CLEAN CATCH PROCEDURE / Unknown Collection / Unknown 01/10/2025 2:45 AM CDT 01/10/2025 2:51 AM CDT [facility] - 01/10/2025 3:04 AM CDT Glendy Reyna APRN-CLIENT RESOLUTION SPECIALIST LAB - URINALYSIS ORDERAB LES Final Result [facility] [address] [place] [phone], [facility] [phone] * (ABNORMAL) URINE DRUG SCREEN IMMUNOASSAY (01/10/2025 2:45 AM CDT) [facility] Amphetamines Screen Urine Negative Negative : < 1000 ng/mL 01/10/2025 3:20 AM [facility] Barbiturates Screen Urine Negative Negative : < 200 ng/mL 01/10/2025 3:20 AM [facility] Benzodiazepine Screen Urine Positive(A) Negative : < 200 ng/mL 01/10/2025 3:20 AM [facility] Comment: Positive urine benzodiazepine screening results should be confirmed by another generally accepted non-immunological method such as gas chromatography or mass spectrometry. Opiates Urine Negative Negative : < 300 ng/mL 01/10/2025 3:20 AM [facility] Cocaine Metabolites Urine Negative Negative : < 300 ng/mL 01/10/2025 3:20 AM [facility] Phencyclidine Screen Urine Negative Negative : < 25 ng/ml 01/10/2025 3:20 AM [facility] Cannabinoids Screen Urine Negative Negative : <50 ng/mL 01/10/2025 3:20 AM [facility] Methadone Screen Urine Negative Negative : < 300 ng/mL 01/10/2025 3:20 AM CDT [facility] Fentanyl Screen Urine Negative Negative : <1.5 ng/mL 01/10/2025 3:20 AM T [facility] Urine URINE / Unknown Collection / Unknown 01/10/2025 2:45 AM CDT 01/10/2025 3:06 AM CDT Narrative [facility] - 01/10/2025 3:20 AM CDT The Urine Toxicology Screening Panel does not screen for Propoxyphene, Meprobamate, Carisoprodol, Trazodone, cqjl-yqi-eatzejz medications and/or volatiles (Acetone, Isopropanol, Methanol or Ethylene Glycol). Ethanol, Salicylate, Acetaminophen, Tricyclic Antidepressants and several therapeutic drugs may be individually assayed in serum or plasma specimen. Toxicology testing by the [facility] is an aid to medical diagnosis and treatment of patients. No documented chain of custody was maintained. Results are intended to be used for clinical purposes only. Glendy Reyna APRN[facility] LAB - URINE CHEMISTRY OR DERABLES Final Result Performing Organization Address City/[facility] Co de Phone Number [facility] [address] [place] [phone], [facility] [phone] * PT-INR [facility] (01/10/2025 2:05 AM CDT) PT 13.5 12.1 - 14.8 Seconds 01/10/2025 2:35 AM T [facility] INR 1.1 See Comment 01/10/2025 2:35 AM [facility] Comment:The suggested therap eutic range for standard coumadin (warfarin) therapy is an INR of 2.0-3.0. For high-risk patients (Mechanical Mitral Valve Prosthesis, etc.), the suggested prophylactic therapeutic range is an INR of 2.5-3.5. Blood BLOOD SPECIMEN / Unknown Venipuncture / Unknown 01/10/2025 2:05 AM CDT 01/10/2025 2:14 AM CDT Glendy Reyna APRNNEW [facility] LAB - COAGULATION ORDERA BLES Final Result Performing Organization Address City/[facility]/ZIP Co de Phone Number [address] [address], [facility] [phone] * TSH REFLEX FREE T4 (01/10/2025 2:05 AM CDT) Pathologist [facility] TSH 0.863 0.350 - 4.940 uIU/mL 01/10/2025 3:13 AM CDT [facility] Blood BLOOD SPECIMEN / Unknown Venipuncture / Unknown 01/10/2025 2:05 AM CDT 01/10/2025 2:14 AM CDT Glendy Reyna APRNNEW [facility] LAB - CHEMISTRY ORDERABL ES Final Result Performing Organization Address [facility] Co de Phone Number [address] [phone], [facility] [phone] * VITAMIN D 25-HYDROXY (01/10/2025 2:05 AM CDT) Pathologist [facility] Vitamin D, 25 Hydroxy 60.1 30.0 - 80.0 ng/mL 01/10/2025 2:58 AM CDT [facility] Comment: The recommendations for 25-Hydroxy Vitamin D clinical decision points are as follows: Deficient: <20.0 ng/mL Insufficient: 20.0 - 29.9 ng/mL Sufficient: 30.0 - 100.0 ng/mL Potential Toxicity: >100 ng/mL Reference: The Endocrine Society Clinical Practice Guidelines. 2011 If the 25-Hydroxy Vitamin D results are inconsitent with clinical evidence, it is recommended that follow-up testing using a method such as LC/MS/MS be performed to confirm the result. Blood BLOOD SPECIMEN / Unknown Venipuncture / Unknown 01/10/2025 2:05 AM CDT 01/10/2025 2:14 AM CDT Glendy Reyna APRNNEW [facility] LAB - CHEMISTRY ORDERABL ES Final Result Performing Organization Address [facility]/ZIP Co de Phone Number [address] [address], [facility] [phone] * LACTIC ACID BLOOD (01/10/2025 2:05 AM CDT) Lactic Acid-Stat 1.2 <=2.0 mmol/L 01/10/2025 2:39 AM CDT [facility] Blood BLOOD SPECIMEN / Unknown Venipuncture / Unknown 01/10/2025 2:05 AM CDT 01/10/2025 2:14 AM CDT Glendy Reyna APRNNEW [facility] LAB - CHEMISTRY ORDERABL ES Final Result [address] [address], [place] [phone] * FOLATE (01/10/2025 2:05 AM CDT) Pathologist [facility] Folate 16.6 7.0 - 31.4 ng/mL 01/10/2025 3:13 AM CDT [facility] Blood BLOOD SPECIMEN / Unknown Venipuncture / Unknown 01/10/2025 2:05 AM CDT 01/10/2025 2:14 AM CDT Glendy Reyna APRN[facility] LAB - CHEMISTRY ORDERABL ES Final Result Performing Organization Address City/[facility]/ZIP Co de Phone Number [address] [address], [place] [phone] * VITAMIN B12 (01/10/2025 2:05 AM CDT) Pathologist [facility] Vitamin B12 478 213 - 816 pg/mL 01/10/2025 3:13 AM CDT [facility] Blood BLOOD SPECIMEN / Unknown Venipuncture / Unknown 01/10/2025 2:05 AM CDT 01/10/2025 2:14 AM CDT Glendy Reyna APRN[facility] LAB - CHEMISTRY ORDERABL ES Final Result Performing Organization Address City/[facility]/ZIP Co de Phone Number [address] [address], [place] [phone] * (ABNORMAL) IRON + TRANSFERRIN PANEL (01/10/2025 2:05 AM CDT) Iron 45 40 - 150 ug/dL 01/10/2025 3:12 AM CDT [facility] Transferrin 177 174 - 382 mg/dL 01/10/2025 3:12 AM CDT [facility] Transferrin Saturation % 20 16 - 50 % 01/10/2025 3:12 AM CDT [facility] TIBC Calculated 221(L) 240 - 450 ug/dL 01/10/2025 3:12 AM CDT [facility] Blood BLOOD SPECIMEN / Unknown Venipuncture / Unknown 01/10/2025 2:05 AM CDT 01/10/2025 2:58 AM CDT Glendy Reyna APRN[facility] LAB - CHEMISTRY ORDERABL ES Final Result Performing Organization Address City/[facility]/ZIP Co de Phone Number [address] [address], [place] [phone] * (ABNORMAL) FERRITIN (01/10/2025 2:05 AM CDT) Ferritin 433(H) 13 - 204 ng/mL 01/10/2025 3:30 AM CDT [facility] Blood BLOOD SPECIMEN / Unknown Venipuncture / Unknown 01/10/2025 2:05 AM CDT 01/10/2025 2:58 AM CDT Glendy Reyna DIRECTOR UNDERWRITER SALESNEW [facility]GLAND [facility] LAB - CHEMISTRY ORDERABL ES Final Result [address] [address], [place] [phone] * (ABNORMAL) TRICYCLICS SCREEN BLOOD (01/09/2025 9:34 PM CDT) Tricyclic Antidepressants 41(L) 80 - 200 ng/mL 01/09/2025 10:26 PM CDT [facility] Blood BLOOD SPECIMEN / Unknown Venipuncture / Unknown 01/09/2025 9:34 PM CDT 01/09/2025 9:36 PM CDT [facility] - 01/09/2025 10:26 PM CDT Many drugs significantly cross-react with this assay, including: diphenhydramine, cyclobenzoprine, gabapentin, and fluoxetine. Results should be confirmed by quantitative mass spectrometry. This assay should not be used for following trends. Expected Values for Tricyclic Antidepressants: Pharmacokinetic studies have shown there is a marked individual variation in the therapeutic and toxic response to tricyclic antidepressants at similar blood concentrations. Cardiac effects have been demonstrated with TCA blood levels as low as 50-100 ng/mL. With TCA levels >500 ng/mL, the incidence of serious cardiac toxicity increases significantly. With TCA levels >1000 ng/mL, severe, sometimes fatal, cardiac and other side effects often occur. us Vinny Hanks MD LAB - CHEMISTRY ORDERABLES Final Result [facility] [address] [place] [phone], [facility] [phone] * (ABNORMAL) CBC W AUTO DIFFERENTIAL (01/09/2025 9:34 PM CDT) WBC 10.0 4.0 - 10.7 x10E9/L 01/09/2025 9:53 PM [facility] RBC Count 2.87(L) 3.90 - 5.20 x10E12/L 01/09/2025 9:53 PM [facility] Hemoglobin 9.4(L) 11.9 - 15.8 g/dL 01/09/2025 9:53 PM [facility] Hematocrit 27.8(L) 34.8 - 46.1 % 01/09/2025 9:53 PM [facility] MCV 96.9 80.0 - 98.0 fL 01/09/2025 9:53 PM [facility] MCH 32.8 26.7 - 33.6 pg 01/09/2025 9:53 PM [facility] MCHC 33.8 31.7 - 36.3 g/dL 01/09/2025 9:53 PM [facility] RDW-CV 13.2 11.3 - 14.8 % 01/09/2025 9:53 PM [facility] Platelet Count 162 150 - 420 x10E9/L 01/09/2025 9:53 PM [facility] MPV 9.7 7.8 - 11.4 fL 01/09/2025 9:53 PM [facility] Neutrophil % 77.3(H) 41.0 - 74.0 % 01/09/2025 9:53 PM [facility] Lymphocyte % 17.1 17.0 - 47.0 % 01/09/2025 9:53 PM [facility] Monocyte % 4.5 3.0 - 11.0 % 01/09/2025 9:53 PM [facility] Eosinophil % 0.4 0.0 - 7.0 % 01/09/2025 9:53 PM [facility] Basophil % 0.3 0.0 - 1.6 % 01/09/2025 9:53 PM [facility] Immature Granulocytes % 0.4 0.0 - 1.0 % 01/09/2025 9:53 PM [facility] Neutrophil Absolute 7.72(H) 1.60 - 7.50 x10E9/L 01/09/2025 9:53 PM [facility] Lymphocyte Absolute 1.71 1.00 - 4.40 x10E9/L 01/09/2025 9:53 PM [facility] Monocyte Absolute 0.45 0.15 - 1.00 x10E9/L 01/09/2025 9:53 PM [facility] Eosinophil Absolute 0.04 0.00 - 0.60 x10E9/L 01/09/2025 9:53 PM [facility] Basophil Absolute 0.03 0.00 - 0.13 x10E9/L 01/09/2025 9:53 PM [facility] Blood BLOOD SPECIMEN / Unknown Venipuncture / Unknown 01/09/2025 9:34 PM CDT 01/09/2025 9:48 PM T us Vinny Hanks MD LAB - HEMATOLOGY ORDERABLES Vira l Result [facility] [address] [place] [address], [facility] [phone] * (ABNORMAL) COMPREHENSIVE METABOLIC PANEL (01/09/2025 9:[address] [facility]) BUN 16 7 - 26 mg/dL 01/09/2025 10:13 PM [facility] Creatinine 0.66 0.56 - 0.96 mg/dL 01/09/2025 10:13 PM [facility] Sodium 142 136 - 145 mmol/L 01/09/2025 10:13 PM [facility] Potassium 3.2(L) 3.5 - 4.5 mmol/L 01/09/2025 10:13 PM [facility] Chloride 106 98 - 107 mmol/L 01/09/2025 10:13 PM [facility] CO2 21(L) 22 - 29 mmol/L 01/09/2025 10:13 PM [facility] Glucose 108(H) 70 - 99 mg/dL 01/09/2025 10:13 PM [facility] Calcium 8.8 8.4 - 10.2 mg/dL 01/09/2025 10:13 PM [facility] Protein Total 6.4 6.0 - 8.3 g/dL 01/09/2025 10:13 PM [facility] Albumin 3.5 3.4 - 5.0 g/dL 01/09/2025 10:13 PM [facility] Bilirubin Total 1.1 0.2 - 1.2 mg/dL 01/09/2025 10:13 PM [facility] Alkaline Phosphatase 85 40 - 150 U/L 01/09/2025 10:13 PM [facility] ALT 8 5 - 55 U/L 01/09/2025 10:13 PM [facility] AST 14 5 - 34 U/L 01/09/2025 10:13 PM [facility] Anion Gap 15 6 - 16 01/09/2025 10:13 PM [facility] BUN/Creatinine Ratio 24(H) 7 - 23 01/09/2025 10:13 PM CDT [facility] Osmolality Calculated 296(H) 275 - 295 mOsm/kg 01/09/2025 10:13 PM [facility] Albumin/Globulin Ratio 1.2 1.1 - 2.3 01/09/2025 10:13 PM [facility] eGFR by CKD-EPI 90 >=90 mL/min/1.7 3 m2 01/09/2025 10:13 PM T [facility] Blood BLOOD SPECIMEN / Unknown Venipuncture / Unknown 01/09/2025 9:34 PM CDT 01/09/2025 9:48 PM CDT Vinny Hanks MD LAB - CHEMISTRY ORDERABLES Final Result Performing Organization Address [facility] Co de Phone Number [address] [phone], [facility] [phone] * ALCOHOL ETHYL BLOOD (01/09/2025 9:34 PM CDT) Ethanol (mg/dL) <10 <10 mg/dL 10:13 PM [facility] Ethanol Calculated (g/dL) <0.010 <=0.010 g/dL 01/09/2025 10:13 PM T [facility] Blood BLOOD SPECIMEN / Unknown Venipuncture / Unknown 01/09/2025 9:34 PM CDT 01/09/2025 9:48 PM CDT Narrative [facility] - 01/09/2025 10:13 PM CDT Ethanol Interp <10: None Detected. Depression of AUDIO VISUAL AIDS DIRECTOR: >100 mg/dl Potentially Critical: >250 mg/dl Potentially Fatal >400 mg/dl Ethanol in the patient's blood will contribute to the osmolar gap. Ethanol's contribution to the osmolar gap can be estimated by dividing the concentration of ethanol in mg/dL by 4.6. This test is for clinical use only and does not equal a KLARISSA for legal purposes. Vinny Hanks MD LAB - CHEMISTRY ORDERABLES Final Result Performing Organization Address City/[facility]/ZIP Co de Phone Number [address] [phone], [facility] [phone] * (ABNORMAL) SALICYLATE LEVEL BLOOD (01/09/2025 9:34 PM CDT) Salicylate <5(L) 15 - 30 mg/dL 01/09/2025 10:13 PM CDT [facility] Blood BLOOD SPECIMEN / Unknown Venipuncture / Unknown 01/09/2025 9:34 PM CDT 01/09/2025 9:48 PM CDT Narrative [facility] - 01/09/2025 10:13 PM CDT This test is not intended for use with low-dose aspirin therapy. Most patients on low-dose aspirin for cardiovascular prophylaxis will have serum concentrations near or below the lower limit of the analytical range. Vinny Hanks MD LAB - CHEMISTRY ORDERABLES Final Result [address] [address], [facility] [phone] * ACETAMINOPHEN LEVEL (01/09/2025 9:34 PM CDT) Acetaminophen <3.0 <3.0 ug/mL 01/09/2025 10:13 PM CDT [facility] Blood BLOOD SPECIMEN / Unknown Venipuncture / Unknown 01/09/2025 9:34 PM CDT 01/09/2025 9:48 PM CDT Narrative [facility] - 01/09/2025 10:13 PM CDT Acetaminophen Toxicity Levels (Hours Post Ingestion): >200 ug/mL at 4 hours >100 ug/mL at 8 hours >50 ug/mL at 12 hours For acute ingestion, please refer to Acetaminophen nomogram to determine the risk of toxicity based on time since ingestion and acetaminophen level (see link provided). Note the nomogram disclaimer. WARNING: Assessing the potential toxicity of an acetaminophen level on a standard risk nomogram must take into consideration many factors including any uncertainty of the time since ingestion or the possibility of other medications that may alter the peak level. Contact the [facility] at or reserved for healthcare professionals to assist you in evaluating potentially toxic acetaminophen levels. Vinny Hanks MD LAB - CHEMISTRY ORDERABLES Final Result [facility] [address] [place] [address], [place] [phone] * XR CHEST 1VW PORTABLE (01/09/2025 8:15 PM CDT) Anatomical Region Laterality Modality Chest Digital Radiogra phy 01/09/2025 8:28 PM CDT Narrative 01/10/2025 11:43 AM CDT PROCEDURE: XR CHEST 1VW PORTABLE, DATE/TIME OF EXAM: 01/09/2025 8:15 PM, LOCATION [facility] INDICATION: T42.4X2A: Suicide attempt by benzodiazepine overdose (HCC) ADDITIONAL CLINICAL INFORMATION: Ordering Provider Reason For Exam: attempted to OD, benzo's hypoxia COMPARISON: X-ray chest 12/14/2019. TECHNIQUE: Frontal radiograph of the chest. FINDINGS/IMPRESSION: Anterior fusion hardware of the cervical spine is partially visualized. Elevated right diaphragm is again seen. Mild left basilar atelectasis. There is no focal consolidation, pleural effusion, or pneumothorax. The cardiomediastinal silhouette is normal. The visible bony thorax is intact. Cholecystectomy clips. Report dictated by Jose Luu MD, (Woods Manager). ILaurel MD have personally reviewed and interpreted this examination/study. > Interpreting Provider: Laurel Bonilla MD on 01/10/2025 11:43 AM Procedure Note Laurel Bonilla MD - 01/10/2025 PROCEDURE: XR CHEST 1VW PORTABLE, DATE/TIME OF EXAM: 01/09/2025 8:15 PM, LOCATION [facility] INDICATION: T42.4X2A: Suicide attempt by benzodiazepine overdose (HCC) ADDITIONAL CLINICAL INFORMATION: Ordering Provider Reason For Exam: attempted to OD, benzo's hypoxia COMPARISON: X-ray chest 12/14/2019. TECHNIQUE: Frontal radiograph of the chest. FINDINGS/IMPRESSION: Anterior fusion hardware of the cervical spine is partially visualized. Elevated right diaphragm is again seen. Mild left basilar atelectasis. There is no focal consolidation, pleural effusion, or pneumothorax. The cardiomediastinal silhouette is normal. The visible bony thorax isintact. Cholecystectomy clips. Report dictated by Jose Luu MD, (Woods Manager). I, Laurel Bonilla MD have personally reviewed and interpreted this examination/study. > Interpreting Provider: Laurel Bonilla MD on 01/10/2025 11:43 AM Vinny Hanks MD DIAGNOSTIC IMAGING ORDERABLES Fi nal Result from Last 3 Months Insurance MEDICARE T [employer]ETNA MEDICARE ADV AETNA MEDICARE ADV Advance Directives Documents on File Type Date Recorded Patient Linux Admin Expl anation Adv Directive/Living Will/POA 10/10/2018 7:25 AM * Full Code (Latest Code Status on File) Date Activated Date Inactivated Comments 01/10/2025 12:43 AM 01/11/2025 6:41 PM * Full Code Date Activated Date Inactivated Comments 01/11/2019 6:07 PM 01/17/2019 4:15 PM * Full Code Date Activated Date Inactivated Comments 10/04/2018 12:17 PM 10/06/2018 2:30 PM * Full Code Date Activated Date Inactivated Comments 10/04/2018 9:13 AM 10/04/2018 12:17 PM * Full Code Date Activated Date Inactivated Comments 10/01/2018 12:21 AM 10/04/2018 9:13 AM Care Teams Capacity Planner Relationship Specialty Start Date End Date Dejan Ashford MD [address] [place] [phone] PCP - General Internal Medicine 09/29/18 Sherly Waddell, RN Securities Teller 01/12/19
--- OUTSIDE RECORDS SUMMARY | 2025-02-08 11:34 | XMS_ITS | Encounter Summary ---
Author Organization [facility] Address [address] [place] [address] Care Team Providers Care Aviation Tactical Readiness Officer Name Role Phone Dejan Ashford MD Primary Care Provider [phone] Sherly Waddell RN Unavailable [phone] Encounter Details Date Type Department Care Team (Late st Contact Info) Description 12/16/2022 Lab Requisition [facility] Care DermPath Lab [address] [place] [id number] Taj Smith MD [address] [place] [address] Social History Tobacco Use Types Packs/Day Years Used Date Smoking Tobacco: Never Smokeless Tobacco: Never Alcohol Use Standard Drinks/Week Comments Yes 7 (1 standard drink = 0.6 oz pur e alcohol) WEEK Comments No Sex and Gender Information Value Date Recorded Sex Assigned at Not on file Legal Sex 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 Answer Date of Assessment Author No 01/17/2019 2:36 PM JACKT Bushra Pierce RN * Is person blind or have serious difficulty seeing? Answer Date of Assessment Author No 01/17/2019 2:36 PM Bushra Hyatt RN * Does person have serious difficulty walking/climbing stairs? Answer Date of Assessment Author No 01/17/2019 2:36 PM CDT Bushra Pierce RN * Does person have difficulty dressing/bathing? Answer Date of Assessment Author No 01/17/2019 2:36 PM CDT Bushra Pierce RN * Does person have difficulty doing errands alone? Answer Date of Assessment Author Yes 01/17/2019 2:36 PM CDT Bushra Pierce RN documented as of this encounter Mental Status * Does person have difficulty concentrating/remembering/making decisions? Answer Entry Date Author Yes 01/17/2019 2:36 PM CDT Bushra Pierce RN documented in this encounter Plan of Treatment Not on file documented as of this encounter Procedures Procedure Name Priority Date/Time Associated Diagnosis Comments DERMATOPATHOLOGY Routine 12/15/2022 3:33 AM CDT documented in this encounter Results * DERMATOPATHOLOGY (12/15/2022 3:33 AM CDT) Case Report Dermatopathology Report Case: [id number] Authorizing Provider: Taj Smith MD Collected: 12/15/2022 03:33 AM Ordering Location: [facility] DermPath Lab Received: 12/16/2022 01:48 PM Pathologist: Rachel Fisher MD Specimens: A) - Skin, right lateral upper calf B) - Skin, right anterolateral upper calf C) - Skin, right lateral foot D) - Skin, right med calf E) - Skin, right upper chest below clavicle 3 1:41 PM CDT DERMATOPATHOLOGY LABORATORY Final Diagnosis Specimen A. SKIN, right lateral upper calf: SQUAMOUS CELL CARCINOMA IN SITU, PRESENT AT THE BASE OF THE SPECIMEN (D04.71) (see microscopic description and comment) Specimen B. SKIN, right anterolateral upper calf: SQUAMOUS CELL CARCINOMA IN SITU (BOSTON'S DISEASE) (D04.71) Specimen C. SKIN, right lateral foot: SQUAMOUS CELL CARCINOMA IN SITU, PRESENT AT THE BASE OF THE SPECIMEN (D04.71) (see microscopic description and comment) Specimen D. SKIN, right med calf: SQUAMOUS CELL CARCINOMA, WELL DIFFERENTIATED (C44.722) Specimen E. SKIN, right upper chest below clavicle: SEBORRHEIC KERATOSIS, INFLAMED (L82.0) 3 1:41 PM T DERMATOPATHOLOGY LABORATORY at 1341 CDT Clinical History A-D: R/O SCC, Chyna, HAK E: R/O dys nevus 3 1:41 PM T DERMATOPATHOLOGY LABORATORY Gross Description Specimen A: Received is one formalin filled container labeled with the patient's name and designated right lateral upper calf. The specimen consists of a shave biopsy measuring 10x9x2 mm. Jar 0. Specimen B: Received is one formalin filled container labeled with the patient's name and designated right anterolateral upper calf. The specimen consists of a shave biopsy measuring 10x9x1 mm. Jar 0. Specimen C: Received is one formalin filled container labeled with the patient's name and designated right lateral foot. The specimen consists of a shave biopsy measuring 10x9x2 mm. Jar 0. Specimen D: Received is one formalin filled container labeled with the patient's name and designated right med calf. The specimen consists of a shave biopsy measuring 9x8x1 mm. Jar 0. Specimen E: Received is one formalin filled container labeled with the patient's name and designated right upper chest below clavicle. The specimen consists of a shave biopsy measuring 9x8x2 mm. Jar 0. 3 1:41 PM T DERMATOPATHOLOGY LABORATORY Microscopic Description Specimen A. SKIN, right lateral upper calf: The epidermis shows parakeratosis, full thickness disorderly maturation of keratinocytes, mitoses at different levels, and dyskeratotic cells. The lesion extends to the base of the biopsy. COMMENT: An invasive squamous cell carcinoma cannot be ruled out. Specimen B. SKIN, right anterolateral upper calf: The epidermis shows parakeratosis, full thickness disorderly maturation of keratinocytes, mitoses at different levels, and dyskeratotic cells. Specimen C. SKIN, right lateral foot: The epidermis shows parakeratosis, full thickness disorderly maturation of keratinocytes, mitoses at different levels, and dyskeratotic cells. The lesion extends to the base of the biopsy. COMMENT: An invasive squamous cell carcinoma cannot be ruled out. Specimen D. SKIN, right med calf: Arising in the epidermis and extending into the dermis there are irregularly shaped aggregates of keratinocytes showing evidence of premature cornification. Specimen E. SKIN, right upper chest below clavicle: There is hyperkeratosis, parakeratosis, papillomatosis, and acanthosis of the epidermis. There is a lymphohistiocytic infiltrate within the papillary dermis that is focally lichenoid. 3 1:41 PM CDT DERMATOPATHOLOGY LABORATORY Disclaimer An external and internal positive and negative controls are appropriate for the histochemical, immunohistochemical and immunofluorescence stain(s) in this case (if any), except where stated explicitly. The performance characteristics of the stain(s) cited in this report were developed and its performance characteristic determined by the Dermatopathology Laboratory at [facility], directed by Dr. Del Gottlieb. These tests need not be, and therefore are not, approved by the [place] Food and Drug Administration. The tests are used for clinical purposes. Billing Codes Specimen Charges Stain Charges 74418 70495 54869 21943 79494 1 1 1 1 1 3 1:41 PM CDT DERMATOPATHOLOGY LABORATORY Embedded Images 3 1:41 PM CDT DERMATOPATHOLOGY LABORATORY Pathology/Cytology TISSUE SPECIMEN FROM SKIN / Unknown 12/15/2022 3:33 AM CDT 12/16/2022 1:48 PM CDT Miscellaneous samples (specimen) TISSUE SPECIMEN FROM SKIN / Unknown 12/15/2022 3:33 AM CDT 12/16/2022 1:48 PM CDT Miscellaneous samples (specimen) TISSUE SPECIMEN FROM SKIN / Unknown 12/15/2022 3:33 AM CDT 12/16/2022 1:48 PM CDT Miscellaneous samples (specimen) TISSUE SPECIMEN FROM SKIN / Unknown 12/15/2022 3:33 AM CDT 12/16/2022 2:29 PM CDT Miscellaneous samples (specimen) TISSUE SPECIMEN FROM SKIN / Unknown 12/15/2022 3:33 AM CDT 12/16/2022 2:29 PM CDT us Taj Smith MD LAB - PATHOLOGY/CYTOLOGY ORD ERABLES Final Result DERMATOPATHOLOGY LABORATORY [facility] - Department of Dermatology [facility] Specialized Medicine [address] [place] [address], [address] [phone] documented in this encounter Visit Diagnoses Not on filedocumented in this encounter Additional Health Concerns Infection Onset Date Last Indicated Resolved Time COVID-19 Under Investigation 01/11/2025 01/11/2025 01/11/2025 4:35 PM CDT documented as of this encounter Care Teams Aviation Tactical Readiness Officer Relationship Specialty Start Date End Date Dejan Ashford MD [address] [place] [address] PCP - General Internal Medicine 09/29/18 Sherly Waddell, RN Solutions Architect 01/12/19 documented as of this encounter
--- OUTSIDE RECORDS SUMMARY | 2025-02-08 11:34 | XMS_ITS | CONTINUITY OF CARE DOCUMENT ---
Author Name seymour ahuja Address Unknown Organization [facility] Address [address] [place] [address] Phone [phone] Care Team Providers Care Lead Process Engineer Name Role Phone Elvni PIERRE, Alley Unavailable [phone] PAM PIERRE, BRADY Unavailable [phone] INSURANCE PROVIDERS Payer name Policy type / Coverage type [place] [employer] party ID [employer] Commercial insurance compan y [id number] [place] Medicare [id number]
--- OUTSIDE RECORDS SUMMARY | 2025-02-08 11:34 | XMS_ITS | Encounter Summary ---
Author Organization [facility] Address [address] [place] [address] Care Team Providers Care Marker Delivery Name Role Phone Dejan Ashford MD Primary Care Provider [phone] Sherly Waddell RN Unavailable [phone] Encounter Details Date Type Department Care Team (Late st Contact Info) Description 07/13/2018 Lab Requisition [facility] Care DermPath Lab [address] [place] [phone] Taj Smith MD [address] [place] [address] Social History Tobacco Use Types Packs/Day Years Used Date Smoking Tobacco: Never Assessed Comments Unknown Sex and Gender Information Value Date Recorded Sex Assigned at Not on file Legal Sex Female 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 Gender Identity Not on file Sexual Orientation Not on file documented as of this encounter Plan of Treatment Not on file documented as of this encounter Procedures Procedure Name Priority Date/Time Associated Diagnosis Comments DERMATOPATHOLOGY Routine 07/12/2018 12:0 0 AM 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 documented in this encounter Results * DERMATOPATHOLOGY (07/12/2018 12:00 AM 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) Case Report Dermatopathology Report Case: [id number] Authorizing Provider: Taj Smith MD Collected: 07/12/2018 12:00 AM Pathologist: Amy Henriquez MD Received: 07/13/2018 11:28 AM Specimen: Skin, left vertex scalp 11:25 AM [facility] DERMATOPATHOLOGY LABORATORY Final Diagnosis Specimen A. SKIN, left vertex scalp: INTRADERMAL MELANOCYTIC NEVUS (D22.4) 11:25 AM [facility] DERMATOPATHOLOGY LABORATORY at [address] [facility] Clinical History R/O SCC, BB, nevus vs other. 11:25 AM [facility] DERMATOPATHOLOGY LABORATORY Gross Description Specimen A: Received is one formalin filled container labeled with the patient's name and designated left vertex scalp. The specimen consists of a shave (2 pieces) biopsy measuring [id number], [id number]. Jar 0. 11:25 AM [facility] DERMATOPATHOLOGY LABORATORY Microscopic Description Specimen A. SKIN, left vertex scalp: There are nests of cytologically bland melanocytes within the dermis that mature with depth. 11:25 AM [facility] DERMATOPATHOLOGY LABORATORY Disclaimer An external and internal positive and negative controls are appropriate for the histochemical, immunohistochemical and immunofluorescence stain(s) in this case (if any), except where stated explicitly. The performance characteristics of the stain(s) cited in this report were developed and its performance characteristic determined by the Dermatopathology Laboratory at [facility]. These tests need not be, and therefore are not, approved by the [place] Food and Drug Administration. The tests are used for clinical purposes. Billing Codes Specimen Charges Stain Charges 02487 1 11:25 AM [facility] DERMATOPATHOLOGY LABORATORY Embedded Images 11:25 AM [facility] DERMATOPATHOLOGY LABORATORY Pathology/Cytolog y TISSUE SPECIMEN FROM SKIN / Unknown 07/12/2018 07/13/2018 11:28 AM [facility] Taj Smith MD LAB - PATHOLOGY/CYTOLOGY ORD ERABLES Final Result DERMATOPATHOLOGY LABORATORY [facility] - Department of Dermatology [address] [place] [address], 5th Floor Lab [address] [phone] documented in this encounter Visit Diagnoses Not on filedocumented in this encounter Additional Health Concerns Infection Onset Date Last Indicated Resolved Time COVID-19 Under Investigation 01/11/2025 01/11/2025 01/11/2025 4:35 PM CDT documented as of this encounter Care Teams Marker Delivery Relationship Specialty Start Date End Date Dejan Ashford MD [address] [place] [address] PCP - General Internal Medicine 09/29/18 Sherly Waddell, RN Aerial Erector 01/12/19 documented as of this encounter
--- OUTSIDE RECORDS SUMMARY | 2025-02-08 11:34 | XMS_ITS | Encounter Summary ---
Author Organization [facility] Address [address] [place] [address] Care Team Providers Care Airplane Rental Clerk Name Role Phone Dejan Ashford MD Primary Care Provider [phone] Sherly Waddell RN Unavailable [phone] Encounter Details Date Type Department Care Team (Late st Contact Info) Description 04/27/2019 Lab Requisition [facility] Care DermPath Lab [address] [place] [phone] Taj Smith MD [address] [place] [address] Social History Tobacco Use Types Packs/Day Years Used Date Smoking Tobacco: Never Smokeless Tobacco: Never Alcohol Use Standard Drinks/Week Comments Yes 7 (1 standard drink = 0.6 oz pur e alcohol) WEEK Comments No Sex and Gender Information Value Date Recorded Sex Assigned at Not on file 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 The specimen consists of a shave biopsy measuring 10x8x1 mm. Jar 0. 9 1:32 PM CDT DERMATOPATHOLOGY LABORATORY Microscopic Description Specimen A. SKIN, left medial superior calf: Sections show nests of cells with pale cytoplasm and thin strands of relatively normal keratinocytes intervening. There is overlying parakeratosis. 1:32 PM CDT DERMATOPATHOLOGY LABORATORY Disclaimer An external and internal positive and negative controls are appropriate for the histochemical, immunohistochemical and immunofluorescence stain(s) in this case (if any), except where stated explicitly. The performance characteristics of the stain(s) cited in this report were developed and its performance characteristic determined by the Dermatopathology Laboratory at [facility], directed by Dr. Del Gottlieb. These tests need not be, and therefore are not, approved by the [place] Food and Drug Administration. The tests are used for clinical purposes. Billing Codes Specimen Charges Stain Charges 86002 1 1:32 PM CDT DERMATOPATHOLOGY LABORATORY Embedded Images 1:32 PM CDT DERMATOPATHOLOGY LABORATORY Pathology/Cytolog y TISSUE SPECIMEN FROM SKIN / Unknown 04/26/2019 04/27/2019 1:32 PM CDT Taj Smith MD LAB - PATHOLOGY/CYTOLOGY ORD ERABLES Final Result DERMATOPATHOLOGY LABORATORY [facility] - Department of Dermatology [address] [place] [address] 5th Floor Lab [address] [phone] documented in this encounter Visit Diagnoses Not on filedocumented in this encounter Additional Health Concerns Infection Onset Date Last Indicated Resolved Time COVID-19 Under Investigation 01/11/2025 01/11/2025 01/11/2025 4:35 PM CDT documented as of this encounter Care Teams Airplane Rental Clerk Relationship Specialty Start Date End Date Dejan Ashford MD [address] [place] [address] PCP - General Internal Medicine 09/29/18 Sherly Waddell, RN Glass Polisher 01/12/19 documented as of this encounter
== END 2025-02-08 10:25 | disposition home or self-care (01) ==
PROVIDERS: PCP Internal Medicine; Visit Provider Nurse Practitioner Family
DX: S33.140A Subluxation of L4/L5 lumbar vertebra, initial encounter (principal); X58.XXXA Exposure to other specified factors, initial encounter; M47.816 Spondylosis without myelopathy or radiculopathy, lumbar region; Z98.1 Arthrodesis status; Z96.698 Presence of other orthopedic joint implants
CPT/HCPCS: 72158; A9579

== ENCOUNTER 2025-03-27 18:59 | Emergency (ER) | payer MEDICARE, SELFPAY ==
[2025-03-27 19:00] VITALS: BP 144/60; PULSE 82; RESP 16; TEMP 36.8; O2SAT 99
--- OUTSIDE RECORDS SUMMARY | 2025-03-27 19:02 | XMS_ITS | Encounter Summary ---
Author Organization [facility] Address [address] [place] [address] Care Team Providers Care Factory Superintendent Name Role Phone Dejan Ashford MD Primary Care Provider Sherly Waddell RN Unavailable [phone] Encounter Details Date Type Department Care Team (Late st Contact Info) Description 12/16/2022 Lab Requisition [facility] Care DermPath Lab [address] [place] [phone] Taj Smith MD [address] [place] [address] Social History Tobacco Use Types Packs/Day Years Used Date Smoking Tobacco: Never Smokeless Tobacco: Never Alcohol Use Standard Drinks/Week Comments Yes 7 (1 standard drink = 0.6 oz pur e alcohol) WEEK Comments No Sex and Gender Information Value Date Recorded Sex Assigned at Not on file 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 Del Gottlieb. These tests need not be, and therefore are not, approved by the [place] Food and Drug Administration. The tests are used for clinical purposes. Billing Codes Specimen Charges Stain Charges 81040 19512 64449 74671 68831 1 1 1 1 1 3 1:41 [...] PATHOLOGY/CYTOLOGY ORD ERABLES Final Result DERMATOPATHOLOGY LABORATORY [facility] - Department of Dermatology [facility] Specialized Medicine [address] [place] [address], [address] [phone] documented in this encounter Visit Diagnoses Not on filedocumented in this encounter Additional Health Concerns Infection Onset Date Last Indicated Resolved Time COVID-19 Under Investigation 01/11/2025 01/11/2025 01/11/2025 4:35 PM CDT documented as of this encounter Care Teams Factory Superintendent Relationship Specialty Start Date End Date Dejan Ashford MD [address] [place] [address] PCP - General Internal Medicine 09/29/18 Sherly Waddell, RN Buckle Gluer 01/12/19 documented as of this encounter
--- OUTSIDE RECORDS SUMMARY | 2025-03-27 19:02 | XMS_ITS | Clinical Summary ---
Author Organization [facility] Address [address] [place] [address] Care Team Providers Care Cmv Driver Name Role Phone Dejan Ashford MD Primary Care Provider [phone] Sherly Waddell RN Unavailable [phone] [facility],non-owned Affiliates and Associated Physician Practices is amultiple site organization consisting of ambulatory clinics and hospital sitesin [place], [place], [place] and [place]. This disclosure is being madepursuant to the Care Everywhere program and may not contain all information available regarding this patient. Last updated 18.[facility] Allergies Active Allergy Reactions Criticality Noted Date [...] (one) tablet by mouth 2 times daily 0 Active metoprolol tartrate (LOPRESSOR) 50 MG tablet Take 1 (one) tablet by mouth 2 times daily 2 Active potassium chloride ER (KLOR-CON) 10 MEQ tablet 1 (one) tablet once daily 4 Active bumetanide (BUMEX) 1 MG tablet 1 (one) tablet once daily 0 Active aspirin (ASPIRIN) 81 MG chew tablet 1 (one) tablet 6 Active Ascorbic Acid 1000 MG 1 (one) tablet once daily 6 Active omeprazole (PRILOSEC) 40 MG capsule Take 1 (one) capsule by mouth daily before breakfast Active cyanocobalamin (VITAMIN B-12) 100 MCG tablet Take 1 (one) tablet by mouth once daily Active Evolocumab (REPATHA SC) Active acetaminophen (TYLENOL) 325 MG tablet Take 2 tablets by mouth every 6 hours as needed Maximum allowable Acetaminophen amount = 4 Grams (4000 mg) / 24 hours. 9 Active azelastine (Astelin) 0.1 % nasal spray USE 1 SPRAY(S) IN EACH NOSTRIL EVERY 12 HOURS 2 Active Cholecalciferol 1.25 MG (12271 UT) TAKE ONE CAPSULE BY MOUTH WEEKLY FOR 8 WEEKS, THEN ONCE MONTHLY FOR TWO MONTHS 1 Active isosorbide mononitrate CR 24hr (Imdur) 30 MG tablet Take 1 (one) tablet by mouth once daily 2 Active nitroGLYCERIN (Nitrostat) 0.4 MG tablet Dissolve 1 (one) tablet under the tongue As needed 2 Active lisinopril (Prinivil; Zestril) 40 MG tablet Take 1 (one) tablet by mouth once daily 5 Active Active Problems Problem Noted Date Diagnosed Date [...] - 01/11/2025 5:40 PM CDT Hospital Encounter [facility] [address] [place] [address] Vinny Hanks MD Lorber, Steven A, MD [...] and heating? Not hard at all 01/10/2025 [facility] - Occupational Stress [...] any time in the past 12 m [facility], were you homeless or living in a group home (including now)? 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 Gender Identity Not on file Sexual Orientation [...] 1-dose 75+ series) 2022 COVID-19 VACCINE ( season) 2024 07/24/2021, 10/18/2020, 09/17/2020 DEPRESSION SCREENING 09/06/2024 MEDICARE AWV CALENDAR YEAR 2024 INFLUENZA VACCINE (#1) 2025 , 06/14/2018, 07/07/2016, Additional history exists HEPATITIS B [...] this topic Medical Devices Implanted Type Area Power System Engineer Device Identifier Shelf Expiration Date Model / Serial / Lot Coil Hydroframe Hdrcl Vtrk 15cm 5mm 10 Implanted:Qty: 1 on 10/04/2018 at [facility] Right: [employer] 06/05/2023 7110-051 5 / [id number] F Description:Dr. Cespedes RBre haley Interventional Attending Coil Hydroframe Hdrcl Vtrk 33cm 8mm 10 Implanted:Qty: 1 on 10/04/2018 at [facility] Right: [employer] 12/04/2022 7110-083 3 / / [id number] 8 Description:Gurdeep Roa Interventional Attending Coil Hydrosoft 6cm 3mm 10 Coil Strch Rs Implanted:Qty: 1 on 10/04/2018 at [facility] Right: [employer] 05/06/2023 7110-030 6 / / [id number] 6 Description:Gurdeep Roa Interventional Attending Coil Hydrosoft 6cm 2mm Embl 3d Implanted:Qty: 1 on 10/04/2018 at [facility] Right: [employer] 05/06/2023 7110-020 6 / / [id number] 6 Description:Gurdeep Roa Interventional Attending Graft Tissue Drgn + Bvn Clgn Mtrx 5x4in Implanted:Qty: 1 on 01/11/2019 by Carloz Trent MD at [facility] Right: Cranial [employer] 06/05/2021 [id number] / / [id number] Impl Orbt 38x33x.8mm Mdpr Rt Trm Off The Implanted:Qty: 1 on 01/11/2019 by Carloz Trent MD at [facility] Right: Cranial [employer] 11/03/2026 [id number] / / [id number] Graft Snth Tissue [id number] Pe Por Mdpr Implanted:Qty: 1 on 01/11/2019 by Carloz Trent MD at [facility] Right: Cranial [employer] 11/04/2027 [id number] / / [id number] Screw 1.5mm 4mm Crnmxf Slf Drl Xdr Implanted:Qty: 13 on 01/11/2019 by Carloz Trent MD at [facility] Right: Cranial [employer] 91-6704 / / Clip Anrsm 11mm Ysrg 7.8mm Crbrl Ti Str Implanted:Qty: 1 on 01/11/2019 by Johnathon Luna MD at [facility] Right: Cranial [employer] 03/05/2026 [id number] / / [id number] Clip Anrsm Slvr 6.5mm Ysrg 6mm Opn Std - [id number] Implanted:Qty: 1 on 01/11/2019 by Johnathon Luna MD at [facility] Right: Cranial [employer] 08/05/2025 [id number] / [id number] / Plate Str 15mm 2 Hl Ti Crnmxf Thinflap Implanted:Qty: 2 on 01/11/2019 by Carloz Trent MD at [facility] Right: Cranial [employer] 19-1005 / / Cover Bur Hl .3mm 18.5mm Thinflap Bnt Implanted:Qty: 2 on 01/11/2019 by Carloz Trent MD at [facility] Right: Cranial [employer] 19-1020B / / Explanted Type Area Power System Engineer Device Identifier Shelf Expiration Date Model / Serial / Lot Clip Anrsm 9mm Ysrg Std 7mm Opn Phynox - [id number] Explanted:Qty: 1 on 01/11/2019 by Johnathon Luna MD at [facility] Right: Cranial [employer] 09/21/2028 [id number] / [id number] / Procedures Procedure Name Priority [...] CDT OT EVAL AND TREAT Routine 01/11/2025 8:5 5 AM CDT EKG 12-LEAD Routine 01/10/2025 1:15 [...] Not detected 01/12/20 25 4:35 PM CDT [facility] Microbiology SPECIMEN FROM NASOPHARYNGEAL STRUCTURE / Unknown Collection / Unknown 01/11/2025 12:59 PM CDT 01/11/2025 3:59 PM CDT Narrative [facility] - 01/11/2025 4:35 PM CDT The Cepheid Xpert Xpress SARS-COV-2 has been authorized by [...] this EUA assay are available upon request. Buster Guevara MD LAB - MICROBIOLOGY ORDERAB LES Final Result [facility] [address] [place] [address], [facility] [phone] * CARDIAC EKG ORDER (01/11/2025 12:12 PM [...] 4.0 - 10.7 x10E9/L 01/11/2025 11:34 AM [facility] RBC Count 3.39(L) 3.90 - 5.20 x10E12/L 01/11/2025 11:34 AM [facility] Hemoglobin 11.5(L) 11.9 - 15.8 g/dL 01/11/2025 11:34 AM [facility] Hematocrit 33.1(L) 34.8 - 46.1 % 01/11/2025 11:34 AM [facility] MCV 97.6 80.0 - 98.0 fL 01/11/2025 11:34 AM [facility] MCH 33.9(H) 26.7 - 33.6 pg 01/11/2025 11:34 AM [facility] MCHC 34.7 31.7 - 36.3 g/dL 01/11/2025 11:34 AM [facility] RDW-CV 13.3 11.3 - 14.8 % 01/11/2025 11:34 AM [facility] Platelet Count 204 150 - 420 x10E9/L 01/11/2025 11:34 AM [facility] MPV 9.6 7.8 - 11.4 fL 01/11/2025 11:34 AM [facility] Blood BLOOD SPECIMEN / Unknown Lab Venipuncture / Unknown 01/11/2025 11:09 AM CDT 01/11/2025 11:23 AM CDT us Buster Guevara MD LAB - HEMATOLOGY ORDERABLE S Final Result [facility] [address] [place] [address], [facility] [phone] * (ABNORMAL) BASIC METABOLIC PANEL (CALCIUM TOTAL) (01/11/2025 11:09 AM T) Only the most recent of2 resultswithin the time period is included. BUN 14 7 - 26 mg/dL 01/11/2025 12:26 PM [facility] Creatinine 0.80 0.56 - 0.96 mg/dL 01/11/2025 12:26 PM [facility] Sodium 141 136 - 145 mmol/L 01/11/2025 12:26 PM [facility] Potassium 4.7(H) 3.5 - 4.5 mmol/L 01/11/2025 12:26 PM [facility] Chloride 107 98 - 107 mmol/L 01/11/2025 12:26 PM [facility] CO2 21(L) 22 - 29 mmol/L 01/11/2025 12:26 PM [facility] Glucose 113(H) 70 - 99 mg/dL 01/11/2025 12:26 PM [facility] Calcium 9.5 8.4 - 10.2 mg/dL 01/11/2025 12:26 PM [facility] Anion Gap 13 6 - 16 01/11/2025 12:26 PM CDT [facility] BUN/Creatinine Ratio 18 7 - 23 01/11/2025 12:26 PM T [facility] Osmolality Calculated 293 275 - 295 mOsm/kg 01/11/2025 12:26 PM T [facility] eGFR by CKD-EPI 76(L) >=90 mL/min/1.7 3 m2 01/11/2025 12:26 PM CDT [facility] Blood BLOOD SPECIMEN / Unknown Lab Venipuncture / Unknown 01/11/2025 11:09 AM CDT 01/11/2025 11:23 AM CDT Buster Guevara MD LAB - CHEMISTRY ORDERABLES Final Result [address] [address], [place] [phone] * PHOSPHORUS BLOOD (01/11/2025 11:09 AM CDT) Only the most recent of2 resultswithin the time period is included. Phosphorus 3.0 2.9 - 5.1 mg/dL 01/11/2025 12:26 PM T [facility] Blood BLOOD SPECIMEN / Unknown Lab Venipuncture / Unknown 01/11/2025 11:09 AM CDT 01/11/2025 11:23 AM CDT Buster Guevara MD LAB - CHEMISTRY ORDERABLES Final Result [address] [address], [place] [phone] * MAGNESIUM BLOOD (01/11/2025 11:09 AM CDT) Only the most recent of2 resultswithin the time period is included. Magnesium 1.8 1.6 - 2.6 mg/dL 01/11/2025 12:26 PM CDT [facility] Blood BLOOD SPECIMEN / Unknown Lab Venipuncture / Unknown 01/11/2025 11:09 AM CDT 01/11/2025 11:23 AM CDT us Buster Guevara MD LAB - CHEMISTRY ORDERABLES Final Result [id number] [place] [address], [facility] [phone] * EKG 12-LEAD (01/10/2025 1:15 PM CDT) Pathologist [facility] Ventricular Rate 81 BPM [facility] Atrial Rate 81 BPM [facility] P-R Interval 120 ms [facility] QRS Duration ms 82 ms [facility] Q-T Interval ms 424 ms [facility] QTC Calculation (Bezet) 492 ms [facility] Calculated P [place] 0 degrees [facility] Calculated R [place] 4 degrees [facility] Calculated T [place] 16 degrees [facility] Interpretation EKG NORMAL SINUS RHYTHM PROLONGED QT ABNORMAL ECG WHEN COMPARED WITH ECG OF 14-DEC-2019 20:33, NO SIGNIFICANT CHANGE WAS FOUND Confirmed by PHAM PIERRE, BUCKYJOHN ([id number]) on 01/10/2025 10:02:55 PM [facility] 01/10/2025 1:15 PM CDT 01/10/2025 10:02 PM CDT Glendy Reyna APRN-[facility] ECG ORDERABLES Edited R esult - Final [facility] * (ABNORMAL) DRUG SCREEN EXPANDED TOXICOLOGY URINE PANEL (01/10/2025 2:45 AM CDT) [facility] Expanded Drug Screen, Urine Positive(A) Negative 01/10/2025 11:10 AM CDT [facility] Findings Acetaminophen Alprazolam Caffeine Diphenhydramine Fexofenadine Lidocaine Lisinopril Loperamide Monoethylglycine xylidide (MEGX) Quinine/Quinidin e Sertraline Metoprolol tartrate 01/10/2025 11:10 AM CDT [facility] Urine URINE / Unknown Collection / Unknown 01/10/2025 2:45 AM CDT 01/10/2025 6:19 AM CDT [facility] TOXICOLOGY [facility] - 01/10/2025 11:10 AM CDT Testing performed by Liquid Chromatography-Quadrupole Time Flight Mass Spectrometry. While mass spectrometry is highly sensitive and specific, false-positive and false-negative findings may occur in rare circumstances. If consultation is needed, please contact the Clinical Pathology Resident solution maker at [phone] (M-F, 8 am 5 pm) or [phone] after hours. This test does not include THC or barbiturates. This testing was developed by the [facility] T[facility] in keeping with CLIA requirements. The test has not been cleared or approved by the U.S. Food and Drug Administration. Vinny Hanks MD LAB - URINE CHEMISTRY ORDERABLES Final Result [facility] [address] [place] [address], [facility] [phone] * (ABNORMAL) URINALYSIS REFLEX TO MICROSCOPIC NO CULTURE (01/10/2025 2:45 AM CDT) Color UA Yellow Yellow, Straw 01/10/2025 3:04 AM [facility] Clarity UA Clear Clear 01/10/2025 3:04 AM [facility] Glucose UA Normal Normal 01/10/2025 3:04 AM [facility] Bilirubin UA Negative Negative 01/10/2025 3:04 AM [facility] Ketone UA Negative Negative 01/10/2025 3:04 AM [facility] Specific [place] UA 1.016 1.005 - 1.030 01/10/2025 3:04 AM [facility] Blood UA Negative Negative 01/10/2025 3:04 AM [facility] pH UA 5.5 5.0 - 8.0 pH 01/10/2025 3:04 AM [facility] Protein UA Negative Negative 01/10/2025 3:04 AM [facility] Urobilinogen UA Normal Normal mg/dL 01/10/2025 3:04 AM [facility] Nitrite UA Negative Negative 01/10/2025 3:04 AM [facility] Leukocyte Esterase UA 75 AMY/uL(A) Negative 01/10/2025 3:04 AM [facility] RBC UA 0-2 0 - 5 # /hpf 01/10/2025 3:04 AM [facility] WBC UA 21-50(A) 0 - 5 # /hpf 01/10/2025 3:04 AM [facility] Bacteria UA None Seen None Seen 01/10/2025 3:04 AM [facility] Squamous Epithelial Cells 3-5 0 - 5 /hpf 01/10/2025 3:04 AM [facility] Mucus UA 1+ /LPF 01/10/2025 3:04 AM [facility] Hyaline Casts 0-2 0 - 2 /LPF 01/10/2025 3:04 AM [facility] Urine URINE SPECIMEN OBTAINED BY CLEAN CATCH PROCEDURE / Unknown Collection / Unknown 01/10/2025 2:45 AM CDT 01/10/2025 2:51 AM [facility] - 01/10/2025 3:04 AM CDT Glendy Reyna RUBBER ATTACHER-CANCER REGISTRAR LAB - URINALYSIS ORDERAB LES Final Result [address] [address], [facility] [phone] * (ABNORMAL) URINE DRUG SCREEN IMMUNOASSAY (01/10/2025 2:45 AM CDT) [facility] Amphetamines Screen Urine Negative Negative : < 1000 ng/mL 01/10/2025 3:20 AM [facility] Barbiturates Screen Urine Negative Negative : < 200 ng/mL 01/10/2025 3:20 AM [facility] Benzodiazepine Screen Urine Positive(A) Negative : < 200 ng/mL 01/10/2025 3:20 AM [facility] Comment: Positive urine benzodiazepine screening results should be confirmed by another generally accepted non-immunological method such as gas chromatography or mass spectrometry. Opiates Urine Negative Negative : < 300 ng/mL 01/10/2025 3:20 AM [facility] Cocaine Metabolites Urine Negative Negative : < 300 ng/mL 01/10/2025 3:20 AM [facility] Phencyclidine Screen Urine Negative Negative : < 25 ng/ml 01/10/2025 3:20 AM [facility] Cannabinoids Screen Urine Negative Negative : <50 ng/mL 01/10/2025 3:20 AM T [facility] Methadone Screen Urine Negative Negative : < 300 ng/mL 01/10/2025 3:20 AM [facility] Fentanyl Screen Urine Negative Negative : <1.5 ng/mL 01/10/2025 3:20 AM [facility] Urine URINE / Unknown Collection / Unknown 01/10/2025 2:45 AM CDT 01/10/2025 3:06 AM CDT [facility] - 01/10/2025 3:20 AM CDT The Urine Toxicology Screening Panel does not screen for Propoxyphene, Meprobamate, Carisoprodol, Trazodone, [id number] medications and/or volatiles (Acetone, Isopropanol, Methanol or Ethylene Glycol). Ethanol, Salicylate, Acetaminophen, Tricyclic Antidepressants and several therapeutic drugs may be individually assayed in serum or plasma specimen. Toxicology testing by the [facility] is an aid to medical diagnosis and treatment of patients. No documented chain of custody was maintained. Results are intended to be used for clinical purposes only. Glendy Reyna RUBBER ATTACHER-CANCER REGISTRAR LAB - URINE CHEMISTRY OR DERABLES Final Result [facility] [address] [place] [address], [facility] [phone] * PT-INR [facility] (01/10/2025 2:05 AM CDT) PT 13.5 12.1 - 14.8 Seconds 01/10/2025 2:35 AM [facility] INR 1.1 See Comment 01/10/2025 2:35 AM [facility] Comment:The suggested therap eutic range for standard coumadin (warfarin) therapy is an INR of 2.0-3.0. For high-risk patients (Mechanical Mitral Valve Prosthesis, etc.), the suggested prophylactic therapeutic range is an INR of 2.5-3.5. Blood BLOOD SPECIMEN / Unknown Venipuncture / Unknown 01/10/2025 2:05 AM CDT 01/10/2025 2:14 AM CDT [facility]y [facility] LAB - COAGULATION ORDERA BLES Final Result Performing Organization Address [facility]/ZIP Co de Phone Number [address] [address], [facility] [phone] * TSH REFLEX FREE T4 (01/10/2025 2:05 AM CDT) TSH 0.863 0.350 - 4.940 uIU/mL 01/10/2025 3:13 AM CDT [facility] Blood BLOOD SPECIMEN / Unknown Venipuncture / Unknown 01/10/2025 2:05 AM CDT 01/10/2025 2:14 AM CDT Glendy Reyna [facility] LAB - CHEMISTRY ORDERABL ES Final Result Performing Organization Address [facility] de Phone Number [address] [address], [facility] [phone] * VITAMIN D 25-HYDROXY (01/10/2025 2:05 AM CDT) Vitamin D, 25 Hydroxy 60.1 30.0 - 80.0 ng/mL 01/10/2025 2:58 AM CDT [facility] Comment: The recommendations for 25-Hydroxy Vitamin D [...] CDT 01/10/2025 2:14 AM CDT Glendy Reyna [facility] LAB - CHEMISTRY ORDERABL ES Final Result Performing Organization Address City/[facility]/ZIP Co de Phone Number [address] [address], [place] [phone] * LACTIC ACID BLOOD (01/10/2025 2:05 AM CDT) Pathologist [facility] Lactic Acid-Stat 1.2 <=2.0 mmol/L 01/10/2025 2:39 AM CDT [facility] Blood BLOOD SPECIMEN / Unknown Venipuncture / Unknown 01/10/2025 2:05 AM CDT 01/10/2025 2:14 AM CDT Glendy Reyna [facility] LAB - CHEMISTRY ORDERABL ES Final Result Performing Organization Address [facility]/ZIP Co de Phone Number [address] [address], [place] [phone] * FOLATE (01/10/2025 2:05 AM CDT) [facility] Folate 16.6 7.0 - 31.4 ng/mL 01/10/2025 3:13 AM CDT [facility] Blood BLOOD SPECIMEN / Unknown Venipuncture / Unknown 01/10/2025 2:05 AM CDT 01/10/2025 2:14 AM CDT us Glendy Reyna [facility] LAB - CHEMISTRY ORDERABL ES Final Result Performing Organization Address City/[facility]/ZIP Co de Phone Number [address] [address], [place] [phone] * VITAMIN B12 (01/10/2025 2:05 AM CDT) [facility] Vitamin B12 478 213 - 816 pg/mL 01/10/2025 3:13 AM CDT [facility] Blood BLOOD SPECIMEN / Unknown Venipuncture / Unknown 01/10/2025 2:05 AM CDT 01/10/2025 2:14 AM CDT Glendy Reyna APRN-CANCER REGISTRAR LAB - CHEMISTRY ORDERABL ES Final Result [address] [address], [place] [phone] * (ABNORMAL) IRON + TRANSFERRIN PANEL (01/10/2025 2:05 AM CDT) Iron 45 40 - 150 ug/dL 01/10/2025 3:12 AM CDT [facility] Transferrin 177 174 - 382 mg/dL 01/10/2025 3:12 AM CDT [facility] Transferrin Saturation % 20 16 - 50 % 01/10/2025 3:12 AM CDT [facility] TIBC Calculated 221(L) 240 - 450 ug/dL 01/10/2025 3:12 AM CDT [facility] Blood BLOOD SPECIMEN / Unknown Venipuncture / Unknown 01/10/2025 2:05 AM CDT 01/10/2025 2:58 AM CDT Glendy Reyna APRN-CANCER REGISTRAR LAB - CHEMISTRY ORDERABL ES Final Result [address] [address], [place] [phone] * (ABNORMAL) FERRITIN (01/10/2025 2:05 AM CDT) Ferritin 433(H) 13 - 204 ng/mL 01/10/2025 3:30 AM CDT [facility] Blood BLOOD SPECIMEN / Unknown Venipuncture / Unknown 01/10/2025 2:05 AM CDT 01/10/2025 2:58 AM CDT Glendy CASH LAB - CHEMISTRY ORDERABL ES Final Result [address] [address], [facility] [phone] * (ABNORMAL) TRICYCLICS SCREEN BLOOD (01/09/2025 9:34 PM CDT) [facility] Tricyclic Antidepressants 41(L) 80 - 200 ng/mL 01/09/2025 10:26 PM CDT [facility] Blood BLOOD SPECIMEN / Unknown Venipuncture / Unknown 01/09/2025 9:34 PM CDT 01/09/2025 9:36 PM CDT [facility] - 01/09/2025 10:26 PM CDT Many drugs [...] cardiac and other side effects often occur. Vinny Hanks MD LAB - CHEMISTRY ORDERABLES Final Result [facility] [address] [place] [address], [facility] [phone] * (ABNORMAL) CBC W AUTO DIFFERENTIAL (01/09/2025 9:34 PM CDT) [facility] WBC 10.0 4.0 - 10.7 x10E9/L 01/09/2025 9:53 [facility] RBC Count 2.87(L) 3.90 - 5.20 x10E12/L 01/09/2025 9:53 PM T [facility] Hemoglobin 9.4(L) 11.9 - 15.8 g/dL 01/09/2025 9:53 PM T [facility] Hematocrit 27.8(L) 34.8 - 46.1 % 01/09/2025 9:53 PM [facility] MCV 96.9 80.0 - 98.0 fL 01/09/2025 9:53 PM [facility] MCH 32.8 26.7 - 33.6 pg 01/09/2025 9:53 PM [facility] MCHC 33.8 31.7 - 36.3 g/dL 01/09/2025 9:53 PM [facility] RDW-CV 13.2 11.3 - 14.8 % 01/09/2025 9:53 PM [facility] Platelet Count 162 150 - 420 x10E9/L 01/09/2025 9:53 PM [facility] MPV 9.7 7.8 - 11.4 fL 01/09/2025 9:53 PM [facility] Neutrophil % 77.3(H) 41.0 - 74.0 % 01/09/2025 9:53 PM [facility] Lymphocyte % 17.1 17.0 - 47.0 % 01/09/2025 9:53 PM [facility] Monocyte % 4.5 3.0 - 11.0 % 01/09/2025 9:53 PM [facility] Eosinophil % 0.4 0.0 - 7.0 % 01/09/2025 9:53 PM [facility] Basophil % 0.3 0.0 - 1.6 % 01/09/2025 9:53 PM [facility] Immature Granulocytes % 0.4 0.0 - 1.0 % 01/09/2025 9:53 PM [facility] Neutrophil Absolute 7.72(H) 1.60 - 7.50 x10E9/L 01/09/2025 9:53 PM [facility] Lymphocyte Absolute 1.71 1.00 - 4.40 x10E9/L 01/09/2025 9:53 PM [facility] Monocyte Absolute 0.45 0.15 - 1.00 x10E9/L 01/09/2025 9:53 PM [facility] Eosinophil Absolute 0.04 0.00 - 0.60 x10E9/L 01/09/2025 9:53 PM [facility] Basophil Absolute 0.03 0.00 - 0.13 x10E9/L 01/09/2025 9:53 PM [facility] Blood BLOOD SPECIMEN / Unknown Venipuncture / Unknown 01/09/2025 9:34 PM CDT 01/09/2025 9:48 PM CDT Vinny Hanks MD LAB - HEMATOLOGY ORDERABLES Vira pa Result [facility] [address] [place] [address], [facility] [phone] * (ABNORMAL) COMPREHENSIVE METABOLIC PANEL (01/09/2025 9:34 PM CDT) BUN 16 7 - 26 mg/dL 01/09/2025 10:13 PM [facility] Creatinine 0.66 0.56 - 0.96 mg/dL 01/09/2025 10:13 PM [facility] Sodium 142 136 - 145 mmol/L 01/09/2025 10:13 PM [facility] Potassium 3.2(L) 3.5 - 4.5 mmol/L 01/09/2025 10:13 PM [facility] Chloride 106 98 - 107 mmol/L 01/09/2025 10:13 PM [facility] CO2 21(L) 22 - 29 mmol/L 01/09/2025 10:13 PM [facility] Glucose 108(H) 70 - 99 mg/dL 01/09/2025 10:13 PM [facility] Calcium 8.8 8.4 - 10.2 mg/dL 01/09/2025 10:13 PM [facility] Protein Total 6.4 6.0 - 8.3 g/dL 01/09/2025 10:13 PM [facility] Albumin 3.5 3.4 - 5.0 g/dL 01/09/2025 10:13 PM [facility] Bilirubin Total 1.1 0.2 - 1.2 mg/dL 01/09/2025 10:13 PM [facility] Alkaline Phosphatase 85 40 - 150 U/L 01/09/2025 10:13 [email or web address] ALT 8 5 - 55 U/L 01/09/2025 10:13 PM [facility] AST 14 5 - 34 U/L 01/09/2025 10:13 PM [facility] Anion Gap 15 6 - 16 01/09/2025 10:13 PM [facility] BUN/Creatinine Ratio 24(H) 7 - 23 01/09/2025 10:13 PM [facility] Osmolality Calculated 296(H) 275 - 295 mOsm/kg 01/09/2025 10:13 PM [facility] Albumin/Globulin Ratio 1.2 1.1 - 2.3 01/09/2025 10:13 PM [facility] eGFR by CKD-EPI 90 >=90 mL/min/1.7 3 m2 01/09/2025 10:13 PM [facility] Blood BLOOD SPECIMEN / Unknown Venipuncture / Unknown 01/09/2025 9:34 PM CDT 01/09/2025 9:48 PM CDT Vinny Hanks MD LAB - CHEMISTRY ORDERABLES Final Result [facility] [address] [place] [id number], [facility] [phone] * ALCOHOL ETHYL BLOOD (01/09/2025 9:34 PM CDT) Ethanol (mg/dL) <10 <10 mg/dL 10:13 PM [facility] Ethanol Calculated (g/dL) <0.010 <=0.010 g/dL 01/09/2025 10:13 PM [facility] Blood BLOOD SPECIMEN / Unknown Venipuncture / Unknown 01/09/2025 9:34 PM CDT 01/09/2025 9:48 PM CDT [facility] - 01/09/2025 10:13 PM CDT Ethanol Interp <10: None Detected. Depression of RETREAD SUPERVISOR: >100 mg/dl Potentially Critical: >250 mg/dl Potentially [...] CHEMISTRY ORDERABLES Final Result Performing Organization Address [facility] Co de Phone Number [address] [address], [facility] [phone] * (ABNORMAL) SALICYLATE LEVEL BLOOD (01/09/2025 9:34 PM CDT) Salicylate <5(L) 15 - 30 mg/dL 01/09/2025 10:13 PM CDT [facility] Blood BLOOD SPECIMEN / Unknown Venipuncture / Unknown 01/09/2025 9:34 PM CDT 01/09/2025 9:48 PM CDT [facility] - 01/09/2025 10:13 PM CDT This test is not intended for use with low-dose aspirin therapy. Most patients on low-dose aspirin for cardiovascular prophylaxis will have serum concentrations near or below the lower limit of the analytical range. Vinny Hanks MD LAB - CHEMISTRY ORDERABLES Final Result Performing Organization Address [facility] Co de Phone Number [address] [address], [facility] [phone] * ACETAMINOPHEN LEVEL (01/09/2025 9:34 PM CDT) Acetaminophen <3.0 <3.0 ug/mL 01/09/2025 10:13 PM CDT [facility] Blood BLOOD SPECIMEN / Unknown Venipuncture / Unknown 01/09/2025 9:34 PM CDT 01/09/2025 9:48 PM CDT [facility] - 01/09/2025 10:13 PM CDT Acetaminophen Toxicity [...] may alter the peak level. Contact the [facility] at or reserved for healthcare professionals to assist you in evaluating potentially toxic acetaminophen levels. us Vinny Hanks MD LAB - CHEMISTRY ORDERABLES Final Result [address] [address], [facility] [phone] * XR CHEST 1VW PORTABLE (01/09/2025 8:15 PM CDT) Anatomical Region Laterality Modality Chest Digital Radiogra phy 01/09/2025 8:28 PM CDT Narrative 01/10/2025 11:43 AM CDT PROCEDURE: XR CHEST 1VW PORTABLE, DATE/TIME OF EXAM: 01/09/2025 8:15 PM, LOCATION [facility] INDICATION: T42.4X2A: Suicide attempt by benzodiazepine overdose [...] clips. Report dictated by Jose Luu MD, (Office Support Assistant). I, Laurel Bonilla MD have personally reviewed and interpreted this examination/study. > Interpreting Provider: Laurel Bonilla MD on 01/10/2025 11:43 AM Procedure Note Laurel Bonilla MD - 01/10/2025 PROCEDURE: XR CHEST 1VW PORTABLE, DATE/TIME OF EXAM: 01/09/2025 8:15 PM, LOCATION [facility] INDICATION: T42.4X2A: Suicide attempt by benzodiazepine overdose [...] clips. Report dictated by Jose Luu MD, (Office Support Assistant). I, Laurel Bonilla MD have personally reviewed and interpreted this examination/study. 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
--- OUTSIDE RECORDS SUMMARY | 2025-03-27 19:02 | XMS_ITS | Clinical Summary ---
Author Organization [facility] D Address [address] [place] [address] Care Team Providers Care Bin Packer Name Role Phone Dejan Ashford MD Primary Care Provider [phone] Allergies Active Allergy Reactions Criticality Noted Date Comments Ezetimibe Muscle pain Medium Reaction: Myalgias, Meperidine Other (See comments) Reaction: Nausea, vomiting, , , Pitavastatin Muscle pain Reaction: Myalgias, Oqocfyz-Aqc-Rut Reductase Inhibitors Muscle pain Reaction: Myalgias, Medications potassium chloride ER (KLOR-CON 10) 10 mEq CR tablet take 1 Tablet by oral route once with food 0 0 4 Active polycarbophil (FIBERCON) 625 mg tablet take 1 Capsule by Oral route once At bedtime 0 0 5 Active quinapril (ACCUPRIL) 40 mg tablet take .5 tablet by oral route 2 times every day 0 0 5 Active buPROPion (WELLBUTRIN) 75 mg tablet take 1 tablet by oral route every day 0 0 6 Active Additional Information Patient not taking.Reported on 11/15/2024 omeprazole (PriLOSEC) 40 mg capsule take 1 capsule by oral route 2 times every day before a meal 0 6 Active ascorbic acid, vitamin C, (VITAMIN C) 1,000 mg CR tablet once daily 0 0 6 Active metoprolol (LOPRESSOR) 50 mg tablet take 1 Tablet (50MG) by oral route 2 times every day with meals 180 3 2 Active aspirin (ASPIRIN CHILDRENS) 81 mg chewable tablet chew 1 tablet (81MG) by oral route every day 30 0 6 Active bumetanide (BUMEX) 1 mg tablet take 1 (1MG) by oral route every day 30 0 0 Active citalopram (CeleXA) 20 mg tablet take 1 tablet (20MG) by oral route every morning 0 0 Active topiramate (TOPAMAX) 50 mg tablet take 1 tablet (50MG) by oral route 2 times every day 0 0 Active isosorbide dinitrate (ISORDIL) 30 mg tablet Take 1 tablet (30 mg total) by mouth daily Active cyanocobalamin (Vitamin B-12) 100 mcg tabletIndicatio ns:Prevention of Vitamin B12 Deficiency Take 1 tablet (100 mcg total) by mouth daily Active PNV 16-iron fum,ps-folic-om eg3 35-1-200 mg capsule Take by mouth Active AMOXICILLIN 500 mg capsule TAKE FOUR CAPSULES BY MOUTH ONE HOUR BEFORE APPOINTMENT 0 9 Active ALPRAZolam (XANAX) 0.5 mg tablet Take 1 tablet (0.5 mg total) by mouth 3 (three) times a day as needed Active cholecalciferol (VITAMIN D-3) 50,000 unit capsule TAKE ONE CAPSULE BY MOUTH WEEKLY FOR 8 WEEKS, THEN ONCE MONTHLY FOR TWO MONTHS 1 Active cholestyramine (QUESTRAN) 4 gram packet MIX 1 PACKET WITH LIQUID AND DRINK ONCE DAILY WITH MEALS (AVOID OTHER MEDS WITHIN 1 HOUR BEFORE OR 4-6 HOURS AFTER DOSE) 1 Active nitroglycerin (Nitrostat) 0.4 mg SL tabletIndicatio ns:acute episode of anginal pain Place 1 tablet (0.4 mg total) under the tongue every 5 (five) minutes as needed for chest pain 25 tablet 1 2 Active Additional Information Patient not taking.Reported on 11/15/2024 azelastine (ASTELIN) 137 mcg (0.1 %) nasal spray 2 Active benzonatate (TESSALON) 100 mg capsule TAKE 1 CAPSULE BY MOUTH TWICE DAILY NEEDED FOR COUGH 2 Active cefdinir (OMNICEF) 300 mg capsule TAKE 1 CAPSULE BY MOUTH EVERY 12 HOURS FOR 2 DAYS 2 Active isosorbide mononitrate ER (IMDUR) 30 mg 24 hr tablet Take 30 mg by mouth daily 2 Active neomycin-polymy marito-dexAMETHaso ne (MAXITROL) 3.5mg/mL-10,000 unit/mL-0.1 % ophthalmic suspension INSTILL 1 DROP INTO EACH EYE 4 TIMES DAILY. SHAKE WELL BEFORE EACH USE 2 Active icosapent ethyL (VASCEPA) 1 gram capsule Take 2 capsules (2 g total) by mouth 2 (two) times a day 120 capsule 11 3 Active bempedoic acid 180 mg tablet Take 1 tablet by mouth daily 90 tablet 6 3 Active Additional Information Patient not taking.Reported on 11/15/2024 evolocumab (Repatha SureClick) 140 mg/mL pen injector Inject 1 mL (140 mg total) under the skin every 14 (fourteen) days 2 mL 3 5 Active Repatha SureClick 140 mg/mL pen injector INJECT 1ML UNDER THE SKIN EVERY 14 DAYS 2 mL 5 025 Discontin ued(Reord er) Active Problems Problem Noted Date Diagnosed Date Aneurysm 2019 Coronary artery spasm 08/02/2018 Assessment & Plan (10/07/2021 9:59 AM PASTEURIZING SUPERVISOR): Asymptomatic. She is out of nitroglycerin. I refilled this for her in stressed the importance of her keeping nitroglycerin available should she have any recurrence of coronary spasm. Continue aspirin. Continue working with Dr. Ashford regarding hyperlipidemia. I recommended cardiology follow-up in one year. As she no longer drives in [place], it would be much more convenient for her to follow up closer to home. I recommended that she contact Dr. Ashford for a referral. Assessment & Plan (10/04/2020 10:57 AM PASTEURIZING SUPERVISOR): Asymptomatic on isosorbide. Assessment & Plan (08/01/2019 7:14 PM PASTEURIZING SUPERVISOR): Asymptomatic on current regimen. Assessment & Plan (08/02/2018 1:25 PM PASTEURIZING SUPERVISOR): Asymptomatic on isosorbide. Essential hypertension 08/03/2017 Assessment & Plan (10/07/2021 10:00 AM PASTEURIZING SUPERVISOR): Blood pressure is well controlled on metoprolol 50 mg b.i.d. and quinapril 20 mg b.i.d.. Continue both. Assessment & Plan (10/04/2020 10:57 AM PASTEURIZING SUPERVISOR): Blood pressure is adequately controlled on current regimen. No change was made. Assessment & Plan (08/01/2019 7:16 PM PASTEURIZING SUPERVISOR): Blood pressure is adequately controlled on current regimen. No change was made. Assessment & Plan (08/02/2018 1:25 PM PASTEURIZING SUPERVISOR): Well controlled on current regimen which was not changed. Assessment & Plan (08/04/2017 7:27 PM PASTEURIZING SUPERVISOR): Blood pressure is adequately controlled on current regimen. No change was made. Hyperlipidemia 08/03/2017 Assessment & Plan (10/07/2021 10:00 AM PASTEURIZING SUPERVISOR): Severe dyslipidemia, treatment of which has been challenging given her intolerance of statins and Zetia. It is surprising that her insurance will not cover Repatha. Assessment & Plan (10/04/2020 10:58 AM PASTEURIZING SUPERVISOR): Lipids today are terrible. She is not currently on Repatha. Will ask staff to investigate on her behalf. Assessment & Plan (08/01/2019 7:16 PM PASTEURIZING SUPERVISOR): She is on Repatha. Total cholesterol is 178. LDL could not be calculated but HDL is 56, so LDL is no more than 122. Assessment & Plan (08/02/2018 1:25 PM PASTEURIZING SUPERVISOR): She is on Repatha. She is due for lipids to be checked through her PCP in the near future. Assessment & Plan (08/04/2017 7:27 PM PASTEURIZING SUPERVISOR): Intolerant of statin therapy. Continue Repatha. Osteoarthritis of cervical spine 06/01/2017 Cervical radiculopathy 06/01/2017 Cervicalgia 05/31/2017 Spinal stenosis of lumbar region 04/19/2017 Pain of foot 05/29/2014 Encounters Date Type Department Care Team Description 03/19/2025 Telephone [facility] Medical [facility] Cardiology [address] [place] [address] Jared Craft MD 02/05/2025 Telephone [facility] Cardiology [address] [place] [address] Jared Craft MD from Last 3 Months Surgical History Surgery [...] on file Legal Sex Female 4:57 PM PASTEURIZING SUPERVISOR Gender Identity Not on file Sexual Orientation [...] Td or Tdap) 02/27/2024 02/26/2014 Influenza Vaccine (#1) 2025 8, 06/30/2017, 07/07/2016, Additional history exists Pneumococcal vaccine 65+ Completed 016, 05/20/2016, 07/14/2015 Insurance T SENIOR SUPPLEMENT AETNA MEDICARE GOLD AETNA MEDICARE GOLD Advance Directives For more information, please contact: [phone] Documents on File Type Date Recorded Patient Transmission Builder Expl anation ADVANCE DIRECTIVE 10/22/2017 12:00 AM Care Teams Bin Packer Relationship Specialty Start Date End Date Dejan Ashford MD [address] [facility] [address] [facility] [address] [place] [address] PCP - General 12/04/16
--- OUTSIDE RECORDS SUMMARY | 2025-03-27 19:02 | XMS_ITS | Encounter Summary ---
Author Organization [facility] Address [address] [place] [address] Care Team Providers Care Commutator V Ring Assembler Name Role Phone Dejan Ashford MD Primary Care Provider [phone] Sherly Waddell RN Unavailable [phone] Encounter Details Date Type Department Care Team (Late st Contact Info) Description 07/13/2018 Lab Requisition [facility] Care DermPath Lab [address] [facility] [place] [id number] Taj Smith MD [address] [place] [address] Social History Tobacco Use Types Packs/Day Years Used Date Smoking Tobacco: Never Assessed Comments Unknown Sex and Gender Information Value Date Recorded Sex Assigned at Not on file Legal Sex Female 6:30 AM CARDIOVASCULAR PHYSICIAN ASSISTANT Gender Identity Not on file Sexual Orientation Not on file documented as of this encounter Plan of Treatment Not on file documented as of this encounter Procedures Procedure Name Priority Date/Time Associated Diagnosis Comments DERMATOPATHOLOGY Routine 07/12/2018 12:0 0 AM CARDIOVASCULAR PHYSICIAN ASSISTANT documented in this encounter Results * DERMATOPATHOLOGY (07/12/2018 12:00 AM CARDIOVASCULAR PHYSICIAN ASSISTANT) Case Report Dermatopathology Report Case: [id number] Authorizing Provider: Taj Smith MD Collected: 07/12/2018 12:00 AM Pathologist: Amy Henriquez MD Received: 07/13/2018 11:28 AM Specimen: Skin, left vertex scalp 11:25 AM [facility] DERMATOPATHOLOGY LABORATORY Final Diagnosis Specimen A. SKIN, left vertex scalp: INTRADERMAL MELANOCYTIC NEVUS (D22.4) 11:25 AM [facility] DERMATOPATHOLOGY LABORATORY at [address] [facility] Clinical History R/O SCC, BB, nevus vs other. 11:25 AM [facility] DERMATOPATHOLOGY LABORATORY Gross Description Specimen A: Received is one formalin filled container labeled with the patient's name and designated left vertex scalp. The specimen consists of a shave (2 pieces) biopsy measuring [id number], [id number]. Jar 0. 11:25 AM [facility] DERMATOPATHOLOGY LABORATORY Microscopic Description Specimen A. SKIN, left vertex scalp: There are nests of cytologically bland melanocytes within the dermis that mature with depth. 11:25 AM [facility] DERMATOPATHOLOGY LABORATORY Disclaimer An external and internal positive and negative controls are appropriate for the histochemical, immunohistochemical and immunofluorescence stain(s) in this case (if any), except where stated explicitly. The performance characteristics of the stain(s) cited in this report were developed and its performance characteristic determined by the Dermatopathology Laboratory at [facility]. These tests need not be, and therefore are not, approved by the [place] Food and Drug Administration. The tests are used for clinical purposes. Billing Codes Specimen Charges Stain Charges 56461 1 11:25 AM [facility] DERMATOPATHOLOGY LABORATORY Embedded Images 11:25 AM [facility] DERMATOPATHOLOGY LABORATORY Pathology/Cytolog y TISSUE SPECIMEN FROM SKIN / Unknown 07/12/2018 07/13/2018 11:28 AM [facility] Taj Smith MD LAB - PATHOLOGY/CYTOLOGY ORD ERABLES Final Result DERMATOPATHOLOGY LABORATORY [facility] - Department of Dermatology [address] [place] [address], 5th Floor Lab [address] [phone] documented in this encounter Visit Diagnoses Not on filedocumented in this encounter Additional Health Concerns Infection Onset Date Last Indicated Resolved Time COVID-19 Under Investigation 01/11/2025 01/11/2025 01/11/2025 4:35 PM CDT documented as of this encounter Care Teams Commutator V Ring Assembler Relationship Specialty Start Date End Date Dejan Ashford MD [address] [place] [address] PCP - General Internal Medicine 09/29/18 Sherly Waddell, RN Web Retailer 01/12/19 documented as of this encounter
--- OUTSIDE RECORDS SUMMARY | 2025-03-27 19:02 | XMS_ITS | Encounter Summary ---
Author Organization [facility] Address [address] [place] [address] Care Team Providers Care Chief Cruiser Name Role Phone Dejan Ashford MD Primary Care Provider [phone] Sherly Waddell RN Unavailable [phone] Encounter Details Date Type Department Care Team (Late st Contact Info) Description 04/27/2019 Lab Requisition [facility] Care DermPath Lab [address] [place] [phone] Taj Smith MD [address] [place] [address] Social History Tobacco Use Types Packs/Day Years Used Date Smoking Tobacco: Never Smokeless Tobacco: Never Alcohol Use Standard Drinks/Week Comments Yes 7 (1 standard drink = 0.6 oz pur e alcohol) WEEK Comments No Sex and Gender Information Value Date Recorded Sex Assigned at Not on file Legal Sex Female 6:30 AM DOCUMENT ADVISOR Gender Identity Not on file Sexual Orientation [...] AM CDT) Case Report Dermatopathology Report Case: [id number] Authorizing Provider: Taj Smith MD Collected: 04/26/2019 12:00 AM Ordering Location: [facility] DermPath Lab Received: 04/27/2019 01:32 PM Pathologist: [...] characteristic determined by the Dermatopathology Laboratory at [facility], directed by Dr. Del Gottlieb. These tests need not be, and therefore are not, approved by the [place] Food and Drug Administration. The tests are used for clinical purposes. Billing Codes Specimen Charges Stain Charges 44488 1 1:32 PM CDT DERMATOPATHOLOGY LABORATORY Embedded Images 1:32 PM CDT DERMATOPATHOLOGY LABORATORY Pathology/Cytolog y TISSUE SPECIMEN FROM SKIN / Unknown 04/26/2019 04/27/2019 1:32 PM CDT Taj Smith MD LAB - PATHOLOGY/CYTOLOGY ORD ERABLES Final Result DERMATOPATHOLOGY LABORATORY [facility] - Department of Dermatology [address] [place] [address] 5th Floor Lab [address] [phone] documented in this encounter Visit Diagnoses Not on filedocumented in this encounter Additional Health Concerns Infection Onset Date Last Indicated Resolved Time COVID-19 Under Investigation 01/11/2025 01/11/2025 01/11/2025 4:35 PM CDT documented as of this encounter Care Teams Chief Cruiser Relationship Specialty Start Date End Date Dejan Ashford MD [address] [place] [address] PCP - General Internal Medicine 09/29/18 Sherly Waddell, RN Ammonia Technician 01/12/19 documented as of this encounter
--- OUTSIDE RECORDS SUMMARY | 2025-03-27 19:02 | XMS_ITS | Referral Summary ---
Author Organization [facility] D Address [address] [place] [address] Care Team Providers Care Processing Engineer Name Role Phone Dejan Ashford MD Primary Care Provider [phone] Encounters Date Type Department Care Team Description 03/19/2025 Telephone [facility] Cardiology [address] [place] [address] Jared Craft MD 02/05/2025 Telephone [facility] Cardiology [address] [place] [address] Jared Craft MD from Last 3 Months Allergies Active Allergy Reactions Criticality Noted Date Comments Ezetimibe Muscle pain Medium Reaction: Myalgias, Meperidine Other (See comments) Reaction: Nausea, vomiting, , , Pitavastatin Muscle pain Reaction: Myalgias, Nfzllcm-Hvr-Rsq Reductase Inhibitors Muscle pain Reaction: Myalgias, Medications [...] by oral route every day 0 0 11/28/201 6 Active Additional Information Patient not taking.Reported [...] 08/02/2018 Assessment & Plan (10/07/2021 9:59 AM DATA ENTRY CLERK): Asymptomatic. She is out of nitroglycerin. I refilled this for her in stressed the importance of her keeping nitroglycerin available should she have any recurrence of coronary spasm. Continue aspirin. Continue working with Dr. Ashford regarding hyperlipidemia. I recommended cardiology follow-up in one year. As she no longer drives in [place], it would be much more convenient for her to follow up closer to home. I recommended that she contact Dr. Ashford for a referral. Assessment & Plan (10/04/2020 10:57 AM DATA ENTRY CLERK): Asymptomatic on isosorbide. Assessment & Plan (08/01/2019 7:14 PM DATA ENTRY CLERK): Asymptomatic on current regimen. Assessment & Plan (08/02/2018 1:25 PM DATA ENTRY CLERK): Asymptomatic on isosorbide. Essential hypertension 08/03/2017 Assessment & Plan (10/07/2021 10:00 AM DATA ENTRY CLERK): Blood pressure is well controlled on metoprolol 50 mg b.i.d. and quinapril 20 mg b.i.d.. Continue both. Assessment & Plan (10/04/2020 10:57 AM DATA ENTRY CLERK): Blood pressure is adequately controlled on current regimen. No change was made. Assessment & Plan (08/01/2019 7:16 PM DATA ENTRY CLERK): Blood pressure is adequately controlled on current regimen. No change was made. Assessment & Plan (08/02/2018 1:25 PM DATA ENTRY CLERK): Well controlled on current regimen which was not changed. Assessment & Plan (08/04/2017 7:27 PM DATA ENTRY CLERK): Blood pressure is adequately controlled on current regimen. No change was made. Hyperlipidemia 08/03/2017 Assessment & Plan (10/07/2021 10:00 AM DATA ENTRY CLERK): Severe dyslipidemia, treatment of which has been challenging given her intolerance of statins and Zetia. It is surprising that her insurance will not cover Repatha. Assessment & Plan (10/04/2020 10:58 AM DATA ENTRY CLERK): Lipids today are terrible. She is not currently on Repatha. Will ask staff to investigate on her behalf. Assessment & Plan (08/01/2019 7:16 PM DATA ENTRY CLERK): She is on Repatha. Total cholesterol is 178. LDL could not be calculated but HDL is 56, so LDL is no more than 122. Assessment & Plan (08/02/2018 1:25 PM DATA ENTRY CLERK): She is on Repatha. She is due for lipids to be checked through her PCP in the near future. Assessment & Plan (08/04/2017 7:27 PM DATA ENTRY CLERK): Intolerant of statin therapy. Continue Repatha. Osteoarthritis [...] on file Legal Sex Female 4:57 PM DATA ENTRY CLERK Gender Identity Not on file Sexual Orientation [...] CDT Plan of Treatment Not on file Insurance AETNA SENIOR SUPPLEMENT AETNA MEDICARE GOLD AETNA MEDICARE GOLD Advance Directives For more information, please contact: [phone] Documents on File Type Date Recorded Patient Welfare Interviewer Expl anation ADVANCE DIRECTIVE 10/22/2017 12:00 AM Care Teams Processing Engineer Relationship Specialty Start Date End Date Dejan Ashford MD [address] [facility] [address] [facility] [address] [place] [address] PCP - General 12/04/16
--- OUTSIDE RECORDS SUMMARY | 2025-03-27 20:00 | XMS_ITS | Encounter Summary ---
Author Organization [facility] Address [address] [place] [address] Care Team Providers Care Automatic Beam Warper Tender Name Role Phone Dejan Ashford MD Primary Care Provider [phone] Sherly Waddell RN Unavailable [phone] Encounter Details Date Type Department Care Team (Late st Contact Info) Description 04/27/2019 Lab Requisition [facility] Care DermPath Lab [address] [place] [id number] Taj Smith MD [address] [place] [address] Social History Tobacco Use Types Packs/Day Years Used Date Smoking Tobacco: Never Smokeless Tobacco: Never Alcohol Use Standard Drinks/Week Comments Yes 7 (1 standard drink = 0.6 oz pur e alcohol) WEEK Comments No Sex and Gender Information Value Date Recorded Sex Assigned at Not on file Legal Sex Female 6:30 AM BOWLING BALL GRADER Gender Identity Not on file Sexual Orientation [...] AM CDT) Case Report Dermatopathology Report Case: [id number] Authorizing Provider: Taj Smith MD Collected: 04/26/2019 12:00 AM Ordering Location: [facility] DermPath Lab Received: 04/27/2019 01:32 PM Pathologist: [...] characteristic determined by the Dermatopathology Laboratory at [facility], directed by Dr. Del Gottlieb. These tests need not be, and therefore are not, approved by the [place] Food and Drug Administration. The tests are used for clinical purposes. Billing Codes Specimen Charges Stain Charges 53693 1 1:32 PM CDT DERMATOPATHOLOGY LABORATORY Embedded Images 1:32 PM CDT DERMATOPATHOLOGY LABORATORY Pathology/Cytolog y TISSUE SPECIMEN FROM SKIN / Unknown 04/26/2019 04/27/2019 1:32 PM CDT Taj Smith MD LAB - PATHOLOGY/CYTOLOGY ORD ERABLES Final Result DERMATOPATHOLOGY LABORATORY [facility] - Department of Dermatology [address] [place] [address] 5th Floor Lab B [address] [phone] documented in this encounter Visit Diagnoses Not on filedocumented in this encounter Additional Health Concerns Infection Onset Date Last Indicated Resolved Time COVID-19 Under Investigation 01/11/2025 01/11/2025 01/11/2025 4:35 PM CDT documented as of this encounter Care Teams Automatic Beam Warper Tender Relationship Specialty Start Date End Date Dejan Ashford MD [address] [place] [address] PCP - General Internal Medicine 09/29/18 Sehrly Waddell, RN People Manager 01/12/19 documented as of this encounter
--- OUTSIDE RECORDS SUMMARY | 2025-03-27 20:00 | XMS_ITS | Encounter Summary ---
Author Organization [facility] Address [address] [place] [address] Care Team Providers Care Dental Surgery Doctor Name Role Phone Dejan Ashford MD Primary Care Provider [phone] Sherly Waddell RN Unavailable Encounter Details Date Type Department Care Team (Late st Contact Info) Description 07/13/2018 Lab Requisition [facility] Care DermPath Lab [address] [facility] [place] [id number] Taj Smith MD [address] [place] [address] Social History Tobacco Use Types Packs/Day Years Used Date Smoking Tobacco: Never Assessed Comments Unknown Sex and Gender Information Value Date Recorded Sex Assigned at Not on file Legal Sex Female 6:30 AM JAVASCRIPT SOFTWARE ENGINEER Gender Identity Not on file Sexual Orientation Not on file documented as of this encounter Plan of Treatment Not on file documented as of this encounter Procedures Procedure Name Priority Date/Time Associated Diagnosis Comments DERMATOPATHOLOGY Routine 07/12/2018 12:0 0 AM JAVASCRIPT SOFTWARE ENGINEER documented in this encounter Results * DERMATOPATHOLOGY (07/12/2018 12:00 AM JAVASCRIPT SOFTWARE ENGINEER) Case Report Dermatopathology Report Case: [id number] Authorizing Provider: Taj Smith MD Collected: 07/12/2018 12:00 AM Pathologist: Amy Henriquez MD Received: 07/13/2018 11:28 AM Specimen: Skin, left vertex scalp 11:25 AM [facility] DERMATOPATHOLOGY LABORATORY Final Diagnosis Specimen A. SKIN, left vertex scalp: INTRADERMAL MELANOCYTIC NEVUS (D22.4) 11:25 AM [facility] DERMATOPATHOLOGY LABORATORY at [address] [facility] Clinical History R/O SCC, BB, nevus vs other. 11:25 AM [facility] DERMATOPATHOLOGY LABORATORY Gross Description Specimen A: Received is one formalin filled container labeled with the patient's name and designated left vertex scalp. The specimen consists of a shave (2 pieces) biopsy measuring [id number], [id number]. Jar 0. 11:25 AM [facility] DERMATOPATHOLOGY LABORATORY Microscopic Description Specimen A. SKIN, left vertex scalp: There are nests of cytologically bland melanocytes within the dermis that mature with depth. 11:25 AM [facility] DERMATOPATHOLOGY LABORATORY Disclaimer An external and internal positive and negative controls are appropriate for the histochemical, immunohistochemical and immunofluorescence stain(s) in this case (if any), except where stated explicitly. The performance characteristics of the stain(s) cited in this report were developed and its performance characteristic determined by the Dermatopathology Laboratory at [facility]. These tests need not be, and therefore are not, approved by the [place] Food and Drug Administration. The tests are used for clinical purposes. Billing Codes Specimen Charges Stain Charges 13690 1 11:25 AM [facility] DERMATOPATHOLOGY LABORATORY Embedded Images 11:25 AM [facility] DERMATOPATHOLOGY LABORATORY Pathology/Cytolog y TISSUE SPECIMEN FROM SKIN / Unknown 07/12/2018 07/13/2018 11:28 AM [facility] Taj Smith MD LAB - PATHOLOGY/CYTOLOGY ORD ERABLES Final Result DERMATOPATHOLOGY LABORATORY [facility] - Department of Dermatology [address] [place] [address], 5th Floor Lab [address] [phone] documented in this encounter Visit Diagnoses Not on filedocumented in this encounter Additional Health Concerns Infection Onset Date Last Indicated Resolved Time COVID-19 Under Investigation 01/11/2025 01/11/2025 01/11/2025 4:35 PM CDT documented as of this encounter Care Teams Dental Surgery Doctor Relationship Specialty Start Date End Date Dejan Ashford MD [address] [place] [address] PCP - General Internal Medicine 09/29/18 Sherly Waddell, RN Label Pinker 01/12/19 documented as of this encounter
--- OUTSIDE RECORDS SUMMARY | 2025-03-27 20:00 | XMS_ITS | Clinical Summary ---
Author Organization [facility] Address [address] [place] [address] Care Team Providers Care Slunk Skin Curer Name Role Phone Dejan Ashford MD Primary Care Provider [phone] Allergies Active Allergy Reactions Criticality Noted Date Comments Ezetimibe Muscle pain Medium Reaction: Myalgias, Meperidine Other (See comments) Reaction: Nausea, vomiting, , , Pitavastatin Muscle pain Reaction: Myalgias, Trzjvga-Owy-Ntg Reductase Inhibitors Muscle pain Reaction: Myalgias, Medications [...] 08/02/2018 Assessment & Plan (10/07/2021 9:59 AM HANGERSMITH): Asymptomatic. She is out of nitroglycerin. I refilled this for her in stressed the importance of her keeping nitroglycerin available should she have any recurrence of coronary spasm. Continue aspirin. Continue working with Dr. Ashford regarding hyperlipidemia. I recommended cardiology follow-up in one year. As she no longer drives in [place], it would be much more convenient for her to follow up closer to home. I recommended that she contact Dr. Ashford for a referral. Assessment & Plan (10/04/2020 10:57 AM HANGERSMITH): Asymptomatic on isosorbide. Assessment & Plan (08/01/2019 7:14 PM HANGERSMITH): Asymptomatic on current regimen. Assessment & Plan (08/02/2018 1:25 PM HANGERSMITH): Asymptomatic on isosorbide. Essential hypertension 08/03/2017 Assessment & Plan (10/07/2021 10:00 AM HANGERSMITH): Blood pressure is well controlled on metoprolol 50 mg b.i.d. and quinapril 20 mg b.i.d.. Continue both. Assessment & Plan (10/04/2020 10:57 AM HANGERSMITH): Blood pressure is adequately controlled on current regimen. No change was made. Assessment & Plan (08/01/2019 7:16 PM HANGERSMITH): Blood pressure is adequately controlled on current regimen. No change was made. Assessment & Plan (08/02/2018 1:25 PM HANGERSMITH): Well controlled on current regimen which was not changed. Assessment & Plan (08/04/2017 7:27 PM HANGERSMITH): Blood pressure is adequately controlled on current regimen. No change was made. Hyperlipidemia 08/03/2017 Assessment & Plan (10/07/2021 10:00 AM HANGERSMITH): Severe dyslipidemia, treatment of which has been challenging given her intolerance of statins and Zetia. It is surprising that her insurance will not cover Repatha. Assessment & Plan (10/04/2020 10:58 AM HANGERSMITH): Lipids today are terrible. She is not currently on Repatha. Will ask staff to investigate on her behalf. Assessment & Plan (08/01/2019 7:16 PM HANGERSMITH): She is on Repatha. Total cholesterol is 178. LDL could not be calculated but HDL is 56, so LDL is no more than 122. Assessment & Plan (08/02/2018 1:25 PM HANGERSMITH): She is on Repatha. She is due for lipids to be checked through her PCP in the near future. Assessment & Plan (08/04/2017 7:27 PM HANGERSMITH): Intolerant of statin therapy. Continue Repatha. Osteoarthritis of cervical spine 06/01/2017 Cervical radiculopathy 06/01/2017 Cervicalgia 05/31/2017 Spinal stenosis of lumbar region 04/19/2017 Pain of foot 05/29/2014 Encounters Date Type Department Care Team Description 03/19/2025 Telephone [facility] Medical [facility] Cardiology [address] [place] [address] Jared Craft MD 02/05/2025 Telephone [facility] Cardiology [address] [place] [address] Jared Craft MD from Last [...] on file Legal Sex Female 4:57 PM HANGERSMITH Gender Identity Not on file Sexual Orientation [...] Advance Directives For more information, please contact: [phone] Documents on File Type Date Recorded Patient Housekeeper [facility] Expl anation ADVANCE DIRECTIVE 10/22/2017 12:00 AM Care Teams Slunk Skin Curer Relationship Specialty Start Date End Date Dejan Ashford MD [address] [facility] [facility] [address] [facility] [address] [place] [address] PCP - General 12/04/16
--- OUTSIDE RECORDS SUMMARY | 2025-03-27 20:00 | XMS_ITS | Clinical Summary ---
Author Organization [facility] Address [address] [address] Care Team Providers Care Fleet Dispatch Manager Name Role Phone Dejan Ashford MD Primary Care Provider [phone] Sherly Waddell RN Unavailable [phone] Source Comments [facility],non-owned Affiliates and Associated Physician Practices is amultiple site organization consisting of ambulatory clinics and hospital sitesin [place], [place], [place] and [place]. This disclosure is being madepursuant to the Care Everywhere program and may not contain all information available regarding this patient. Last updated 18.[facility] Allergies Active Allergy Reactions Criticality Noted Date [...] 12 HOURS 2 Active Cholecalciferol 1.25 MG (82133 UT) TAKE ONE CAPSULE BY MOUTH WEEKLY [...] - 01/11/2025 5:40 PM CDT Hospital Encounter [facility] 8S ACUTE [address] [place] [address] Vinny Hanks MD Lorber, Steven A, MD [...] and heating? Not hard at all 01/10/2025 [facility] [place] of Occupat ional Health - Occupational Stress [...] any time in the past 12 m [facility], were you homeless or living in a snf (including now)? 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 Cespedes RBre haley Interventional Attending Coil Hydroframe Hdrcl Vtrk 33cm 8mm 10 Implanted:Qty: 1 on 10/04/2018 at [facility] Right: [employer] 12/04/2022 7110-083 3 / / [id number] 8 Description:Gurdeep Roa Interventional Attending Coil Hydrosoft 6cm 3mm 10 Coil Strch Rs Implanted:Qty: 1 on 10/04/2018 at [facility] Right: [employer] 05/06/2023 7110-030 6 / / [id number] 6 Description:Gurdeep Roa Interventional Attending Coil Hydrosoft 6cm 2mm Embl 3d Implanted:Qty: 1 on 10/04/2018 at [facility] Right: [employer] 05/06/2023 7110-020 6 / / [id number] 6 Description:Gurdeep Roa Interventional Attending Graft Tissue Drgn + Bvn Clgn Mtrx 5x4in Implanted:Qty: 1 on 01/11/2019 by Carloz Trent MD at [facility] Right: Cranial [employer] 06/05/2021 [id number] / / [id number] Impl Orbt 38x33x.8mm Mdpr Rt Trm Off The Implanted:Qty: 1 on 01/11/2019 by Carloz Trent MD at [facility] Right: Cranial [employer] 11/03/2026 [id number] / / [id number] Graft Snth Tissue [id number] Pe Por Mdpr Implanted:Qty: 1 on 01/11/2019 by Carloz Trent MD at [facility] Right: Cranial Forrest [employer] 11/04/2027 [id number] / / [id number] Screw 1.5mm 4mm Crnmxf Slf Drl Xdr Implanted:Qty: 13 on 01/11/2019 by Carloz Trent MD at [facility] Right: Cranial [employer] 91-6704 / / Clip Anrsm 11mm Ysrg 7.8mm Crbrl Ti Str Implanted:Qty: 1 on 01/11/2019 by Johnathon Luna MD at [facility] Right: Cranial [employer] 03/05/2026 [id number] / / [id number] Clip Anrsm Slvr 6.5mm Ysrg 6mm Opn Std - [id number] Implanted:Qty: 1 on 01/11/2019 by Johnathon Luna MD at [facility] Right: Cranial [employer] 08/05/2025 [id number] / [id number] / Plate Str 15mm 2 Hl Ti Crnmxf Thinflap Implanted:Qty: 2 on 01/11/2019 by Carloz Trent MD at [facility] Right: Cranial [employer] 19-1005 / / Cover Bur Hl .3mm 18.5mm Thinflap Bnt Implanted:Qty: 2 on 01/11/2019 by Carloz Trent MD at [facility] Right: Cranial [employer] 19-1020B / / Explanted Type Area Sr Technical Sales Consultant Device Identifier Shelf Expiration Date Model / Serial / Lot Clip Anrsm 9mm Ysrg Std 7mm Opn Phynox - [id number] Explanted:Qty: 1 on 01/11/2019 by Johnathon Luna MD at [facility] Right: Cranial [employer] 09/21/2028 [id number] / [id number] / Procedures Procedure Name Priority [...] Not detected 01/12/20 25 4:35 PM CDT [facility] Microbiology SPECIMEN FROM NASOPHARYNGEAL STRUCTURE / Unknown Collection / Unknown 01/11/2025 12:59 PM CDT 01/11/2025 3:59 PM CDT Narrative [facility] - 01/11/2025 4:35 PM CDT The Cepheid [...] LAB - MICROBIOLOGY ORDERAB LES Final Result [facility] [address] [place] [address], [facility] [phone] * CARDIAC EKG ORDER (01/11/2025 12:12 PM [...] LAB - HEMATOLOGY ORDERABLE S Final Result [facility] [address] [place] [address], [facility] [phone] * (ABNORMAL) BASIC METABOLIC PANEL (CALCIUM TOTAL) [...] 6 - 16 01/11/2025 12:26 PM CDT [facility] BUN/Creatinine Ratio 18 7 - 23 01/11/2025 12:26 PM T [facility] Osmolality Calculated 293 275 - 295 mOsm/kg 01/11/2025 12:26 PM T [facility] eGFR by CKD-EPI 76(L) >=90 mL/min/1.7 3 m2 01/11/2025 12:26 PM CDT [facility] Blood BLOOD SPECIMEN / Unknown Lab Venipuncture / Unknown 01/11/2025 11:09 AM CDT 01/11/2025 11:23 AM CDT Buster Guevara MD LAB - CHEMISTRY ORDERABLES Final Result [address] [address], [place] [phone] * PHOSPHORUS BLOOD (01/11/2025 11:09 AM CDT) Only the most recent of2 resultswithin the time period is included. Phosphorus 3.0 2.9 - 5.1 mg/dL 01/11/2025 12:26 PM T [facility] Blood BLOOD SPECIMEN / Unknown Lab Venipuncture / Unknown 01/11/2025 11:09 AM CDT 01/11/2025 11:23 AM CDT Buster Guevara MD LAB - CHEMISTRY ORDERABLES Final Result [address] [address], [place] [phone] * MAGNESIUM BLOOD (01/11/2025 11:09 AM CDT) Only the most recent of2 resultswithin the time period is included. Magnesium 1.8 1.6 - 2.6 mg/dL 01/11/2025 12:26 PM CDT [facility] Blood BLOOD SPECIMEN / Unknown Lab Venipuncture / Unknown 01/11/2025 11:09 AM CDT 01/11/2025 11:23 AM CDT us Buster Guevara MD LAB - CHEMISTRY ORDERABLES Final Result [place] [address] [place] [address], [facility] [phone] * EKG 12-LEAD (01/10/2025 1:15 PM CDT) Pathologist [facility] Ventricular Rate 81 BPM [facility] MUSE Atrial Rate 81 BPM [facility] MUSE P-R Interval 120 ms [facility] MUSE QRS Duration ms 82 ms [facility] MUSE Q-T Interval ms 424 ms [facility] MUSE QTC Calculation (Bezet) 492 ms [facility] MUSE Calculated P Gonzales 0 degrees [facility] MUSE Calculated R Gonzales 4 degrees [facility] MUSE Calculated T Gonzales 16 degrees [facility] MUSE Interpretation EKG NORMAL SINUS RHYTHM PROLONGED QT ABNORMAL ECG WHEN COMPARED WITH ECG OF 14-DEC-2019 20:33, NO SIGNIFICANT CHANGE WAS FOUND Confirmed by PHAM PIERRE, BUCKYJOHN ([id number]) on 01/10/2025 10:02:55 PM [facility] MUSE 01/10/2025 1:15 PM CDT 01/10/2025 10:02 PM CDT Glendy Reyna APRN-[facility] ECG ORDERABLES Edited R esult - Final [facility] MUSE * (ABNORMAL) DRUG SCREEN EXPANDED TOXICOLOGY URINE PANEL (01/10/2025 2:45 AM CDT) [facility] Expanded Drug Screen, Urine Positive(A) Negative 01/10/2025 11:10 AM CDT [facility] Findings Acetaminophen Alprazolam Caffeine Diphenhydramine Fexofenadine Lidocaine Lisinopril Loperamide Monoethylglycine xylidide (MEGX) Quinine/Quinidin e Sertraline Metoprolol tartrate 01/10/2025 11:10 AM CDT [facility] Urine URINE / Unknown Collection / Unknown 01/10/2025 2:45 AM CDT 01/10/2025 6:19 AM CDT [facility] TOXICOLOGY LAB - 01/10/2025 11:10 AM CDT Testing performed by Liquid Chromatography-Quadrupole Time Flight Mass Spectrometry. While mass spectrometry is highly sensitive and specific, false-positive and false-negative findings may occur in rare circumstances. If consultation is needed, please contact the Clinical Pathology Resident container coordinator at [phone] (M-F, 8 am 5 pm) or [phone] after hours. This test does not include THC or barbiturates. This testing was developed by the [facility] Toxicology Laboratory in keeping with CLIA requirements. The test has not been cleared or approved by the U.S. Food and Drug Administration. Vinny Hanks MD LAB - URINE CHEMISTRY ORDERABLES Final Result [facility]IC[facility] [address] [place] [address], [facility] [phone] * (ABNORMAL) URINALYSIS REFLEX TO MICROSCOPIC NO [...] AM [facility] Specific [place] UA 1.016 1.005 - 1.030 01/10/2025 3:04 [...] 0 - 5 /hpf 01/10/2025 3:04 AM [facility] Mucus UA 1+ /LPF 01/10/2025 3:04 AM [facility] Hyaline Casts 0-2 0 - 2 /LPF 01/10/2025 3:04 AM [facility] Urine URINE SPECIMEN OBTAINED BY CLEAN CATCH PROCEDURE / Unknown Collection / Unknown 01/10/2025 2:45 AM CDT 01/10/2025 2:51 AM [facility] - 01/10/2025 3:04 AM CDT Glendy Reyna PRODUCTION CONTROLLER-PASTE MIXER LAB - URINALYSIS ORDERAB LES Final Result [address] [address], [facility] [phone] * (ABNORMAL) URINE DRUG SCREEN IMMUNOASSAY (01/10/2025 2:45 AM CDT) [facility] Amphetamines Screen Urine Negative Negative : [...] : <50 ng/mL 01/10/2025 3:20 AM T [facility] Methadone Screen Urine Negative Negative : < 300 ng/mL 01/10/2025 3:20 AM [facility] Fentanyl Screen Urine Negative Negative : <1.5 ng/mL 01/10/2025 3:20 AM [facility] Urine URINE / Unknown Collection / Unknown 01/10/2025 2:45 AM CDT 01/10/2025 3:06 AM CDT [facility] - 01/10/2025 3:20 AM CDT The Urine Toxicology Screening Panel does not screen for Propoxyphene, Meprobamate, Carisoprodol, Trazodone, fhao-nun-zmmibqf medications and/or volatiles (Acetone, Isopropanol, Methanol or Ethylene Glycol). Ethanol, Salicylate, Acetaminophen, Tricyclic Antidepressants and several therapeutic drugs may be individually assayed in serum or plasma specimen. Toxicology testing by the [facility] is an aid to medical diagnosis and treatment of patients. No documented chain of custody was maintained. Results are intended to be used for clinical purposes only. Glendy Reyna PRODUCTION CONTROLLER-PASTE MIXER LAB - URINE CHEMISTRY OR DERABLES Final Result [facility] [address] [place] [address], [facility] [phone] * PT-INR [facility] (01/10/2025 2:05 AM CDT) PT 13.5 12.1 - 14.8 Seconds 01/10/2025 2:35 AM [facility] INR 1.1 See Comment 01/10/2025 2:35 AM [facility] Comment:The suggested therap eutic range for standard coumadin (warfarin) therapy is an INR of 2.0-3.0. For high-risk patients (Mechanical Mitral Valve Prosthesis, etc.), the suggested prophylactic therapeutic range is an INR of 2.5-3.5. Blood BLOOD SPECIMEN / Unknown Venipuncture / Unknown 01/10/2025 2:05 AM CDT 01/10/2025 2:14 AM CDT [facility] - COAGULATION ORDERA BLES Final Result Performing Organization Address [facility]/ZIP Co de Phone Number [address] [address], [facility] [phone] * TSH REFLEX FREE T4 (01/10/2025 2:05 AM CDT) TSH 0.863 0.350 - 4.940 uIU/mL 01/10/2025 3:13 AM CDT [facility] Blood BLOOD SPECIMEN / Unknown Venipuncture / Unknown 01/10/2025 2:05 AM CDT 01/10/2025 2:14 AM CDT [facility] - CHEMISTRY ORDERABL ES Final Result Performing Organization Address [facility] de Phone Number [address] [address], [facility] [phone] * VITAMIN D 25-HYDROXY (01/10/2025 2:05 AM CDT) Vitamin D, 25 Hydroxy 60.1 30.0 - 80.0 ng/mL 01/10/2025 2:58 AM CDT [facility] Comment: The recommendations for 25-Hydroxy Vitamin D [...] CDT 01/10/2025 2:14 AM CDT [facility] - CHEMISTRY ORDERABL ES Final Result Performing Organization Address City/[facility]/ZIP Co de Phone Number [address] [address], [place] [phone] * LACTIC ACID BLOOD (01/10/2025 2:05 AM CDT) Pathologist [facility] Lactic Acid-Stat 1.2 <=2.0 mmol/L 01/10/2025 2:39 AM CDT [facility] Blood BLOOD SPECIMEN / Unknown Venipuncture / Unknown 01/10/2025 2:05 AM CDT 01/10/2025 2:14 AM CDT [facility] LAB - CHEMISTRY ORDERABL ES Final Result Performing Organization Address [facility]/ZIP Co de Phone Number [address] [address], [place] [phone] * FOLATE (01/10/2025 2:05 AM CDT) [facility] Folate 16.6 7.0 - 31.4 ng/mL 01/10/2025 3:13 AM CDT [facility] Blood BLOOD SPECIMEN / Unknown Venipuncture / Unknown 01/10/2025 2:05 AM CDT 01/10/2025 2:14 AM CDT us [facility]y [facility] LAB - CHEMISTRY ORDERABL ES Final Result Performing Organization Address City/[facility]/ZIP Co de Phone Number [address] [address], [place] [phone] * VITAMIN B12 (01/10/2025 2:05 AM CDT) [facility] Vitamin B12 478 213 - 816 pg/mL 01/10/2025 3:13 AM CDT [facility] Blood BLOOD SPECIMEN / Unknown Venipuncture / Unknown 01/10/2025 2:05 AM CDT 01/10/2025 2:14 AM CDT Glendy Reyna APRN-PASTE MIXER LAB - CHEMISTRY ORDERABL ES Final Result [address] [address], [place] [phone] * (ABNORMAL) IRON + TRANSFERRIN PANEL (01/10/2025 2:05 AM CDT) Iron 45 40 - 150 ug/dL 01/10/2025 3:12 AM CDT [facility] Transferrin 177 174 - 382 mg/dL 01/10/2025 3:12 AM CDT [facility] Transferrin Saturation % 20 16 - 50 % 01/10/2025 3:12 AM CDT [facility] TIBC Calculated 221(L) 240 - 450 ug/dL 01/10/2025 3:12 AM CDT [facility] Blood BLOOD SPECIMEN / Unknown Venipuncture / Unknown 01/10/2025 2:05 AM CDT 01/10/2025 2:58 AM CDT Glendy Reyna APRN-PASTE MIXER LAB - CHEMISTRY ORDERABL ES Final Result [address] [address], [place] [phone] * (ABNORMAL) FERRITIN (01/10/2025 2:05 AM CDT) Ferritin 433(H) 13 - 204 ng/mL 01/10/2025 3:30 AM CDT [facility] Blood BLOOD SPECIMEN / Unknown Venipuncture / Unknown 01/10/2025 2:05 AM CDT 01/10/2025 2:58 AM CDT Glendy CASH LAB - CHEMISTRY ORDERABL ES Final Result [address] [address], [facility] [phone] * (ABNORMAL) TRICYCLICS SCREEN BLOOD (01/09/2025 9:34 PM CDT) [facility] Tricyclic Antidepressants 41(L) 80 - 200 ng/mL 01/09/2025 10:26 PM CDT [facility] Blood BLOOD SPECIMEN / Unknown Venipuncture / Unknown 01/09/2025 9:34 PM CDT 01/09/2025 9:36 PM CDT [facility] - 01/09/2025 10:26 PM CDT Many [...] MD LAB - CHEMISTRY ORDERABLES Final Result [facility] [address] [place] [address], [facility] [phone] * (ABNORMAL) CBC W AUTO DIFFERENTIAL (01/09/2025 9:34 PM CDT) [facility] WBC 10.0 4.0 - 10.7 x10E9/L 01/09/2025 9:53 [facility] RBC Count 2.87(L) 3.90 - 5.20 x10E12/L 01/09/2025 9:53 PM T [facility] Hemoglobin 9.4(L) 11.9 - 15.8 g/dL 01/09/2025 9:53 PM T [facility] Hematocrit 27.8(L) 34.8 - 46.1 % 01/09/2025 [...] LAB - HEMATOLOGY ORDERABLES Vira pa Result [facility] [address] [place] [address], [facility] [phone] * (ABNORMAL) COMPREHENSIVE METABOLIC PANEL (01/09/2025 9:34 [...] 40 - 150 U/L 01/09/2025 10:13 PM [facility] ALT 8 5 - 55 U/L 01/09/2025 10:13 PM [facility] AST 14 5 - 34 U/L 01/09/2025 10:13 PM [facility] Anion Gap 15 6 - 16 01/09/2025 10:13 PM [facility] BUN/Creatinine Ratio 24(H) 7 - 23 01/09/2025 10:13 PM [facility] Osmolality Calculated 296(H) 275 - 295 mOsm/kg 01/09/2025 10:13 PM [facility] Albumin/Globulin Ratio 1.2 1.1 - 2.3 01/09/2025 10:13 PM [facility] eGFR by CKD-EPI 90 >=90 mL/min/1.7 3 m2 01/09/2025 10:13 PM [facility] Blood BLOOD SPECIMEN / Unknown Venipuncture / Unknown 01/09/2025 9:34 PM CDT 01/09/2025 9:48 PM CDT Vinny Hanks MD LAB - CHEMISTRY ORDERABLES Final Result [facility] [address] [place] [address], [facility] [phone] * ALCOHOL ETHYL BLOOD (01/09/2025 9:34 PM CDT) Ethanol (mg/dL) <10 <10 mg/dL 10:13 PM [facility] Ethanol Calculated (g/dL) <0.010 <=0.010 g/dL 01/09/2025 10:13 PM [facility] Blood BLOOD SPECIMEN / Unknown Venipuncture / Unknown 01/09/2025 9:34 PM CDT 01/09/2025 9:48 PM CDT [facility] - 01/09/2025 10:13 PM CDT Ethanol Interp <10: None Detected. Depression of AUTOMOTIVE LIGHT MECHANIC: >100 mg/dl Potentially Critical: >250 mg/dl Potentially [...] CHEMISTRY ORDERABLES Final Result Performing Organization Address [facility] Co de Phone Number [address] [address], [facility] [phone] * (ABNORMAL) SALICYLATE LEVEL BLOOD (01/09/2025 9:34 PM CDT) Salicylate <5(L) 15 - 30 mg/dL 01/09/2025 10:13 PM CDT [facility] Blood BLOOD SPECIMEN / Unknown Venipuncture / Unknown 01/09/2025 9:34 PM CDT 01/09/2025 9:48 PM CDT [facility] - 01/09/2025 10:13 PM CDT This test is not intended for use with low-dose aspirin therapy. Most patients on low-dose aspirin for cardiovascular prophylaxis will have serum concentrations near or below the lower limit of the analytical range. Vinny Hanks MD LAB - CHEMISTRY ORDERABLES Final Result Performing Organization Address [facility] Co de Phone Number [address] [address], [facility] [phone] * ACETAMINOPHEN LEVEL (01/09/2025 9:34 PM CDT) Acetaminophen <3.0 <3.0 ug/mL 01/09/2025 10:13 PM CDT [facility] Blood BLOOD SPECIMEN / Unknown Venipuncture / Unknown 01/09/2025 9:34 PM CDT 01/09/2025 9:48 PM CDT [facility] - 01/09/2025 10:13 PM CDT Acetaminophen [...] may alter the peak level. Contact the [facility] at or reserved for healthcare professionals to assist you in evaluating potentially toxic acetaminophen levels. us Vinny Hanks MD LAB - CHEMISTRY ORDERABLES Final Result [address] [address], [facility] [phone] * XR CHEST 1VW PORTABLE (01/09/2025 8:15 PM CDT) Anatomical Region Laterality Modality Chest Digital Radiogra phy 01/09/2025 8:28 PM CDT Narrative 01/10/2025 11:43 AM CDT PROCEDURE: XR CHEST 1VW PORTABLE, DATE/TIME OF EXAM: 01/09/2025 8:15 PM, LOCATION [facility] INDICATION: T42.4X2A: Suicide attempt by benzodiazepine [...] clips. Report dictated by Jose Luu MD, (Maternity Nurse). I, Laurel Bonilla MD have personally reviewed and interpreted this examination/study. > Interpreting Provider: Laurel Bonilla MD on 01/10/2025 11:43 AM Procedure Note Laurel Bonilla MD - 01/10/2025 PROCEDURE: XR CHEST 1VW PORTABLE, DATE/TIME OF EXAM: 01/09/2025 8:15 PM, LOCATION [facility] INDICATION: T42.4X2A: Suicide attempt by benzodiazepine [...] clips. Report dictated by Jose Luu MD, (Maternity Nurse). I, Laurel Bonilla MD have personally reviewed and interpreted this examination/study. > Interpreting Provider: Laurel Bonilla MD on 01/10/2025 11:43 AM Vinny Hanks MD DIAGNOSTIC IMAGING ORDERABLES Fi nal Result from Last 3 Months Insurance MEDICARE T AETNA MEDICARE ADV AETNA MEDICARE ADV Advance Directives Documents on File Type Date Recorded Patient County Demonstrator Expl anation Adv Directive/Living Will/POA 10/10/2018 7:25 [...] 12:21 AM 10/04/2018 9:13 AM Care Teams Fleet Dispatch Manager Relationship Specialty Start Date End Date Dejan Ashford MD [address] [place] [phone] PCP - General Internal Medicine 09/29/18 Sherly Waddell, RN President & Ceo 01/12/19
--- OUTSIDE RECORDS SUMMARY | 2025-03-27 20:00 | XMS_ITS | Referral Summary ---
Author Organization [facility], formerly [facility] D Address [address] [place] [address] Care Team Providers Care Porcelain Enamel Sprayer Name Role Phone eDjan Ashford MD Primary Care Provider [phone] Encounters Date Type Department Care Team Description 03/19/2025 Telephone [facility] Cardiology [address] [place] [address] Jared Craft MD 02/05/2025 Telephone [facility] Cardiology [address] [place] [address] Jared Craft MD from Last 3 Months Allergies Active Allergy Reactions Criticality Noted Date Comments Ezetimibe Muscle pain Medium Reaction: Myalgias, Meperidine Other (See comments) Reaction: Nausea, vomiting, , , Pitavastatin Muscle pain Reaction: Myalgias, Vxrgstb-Rsh-Kar Reductase Inhibitors Muscle pain Reaction: Myalgias, Medications [...] 08/02/2018 Assessment & Plan (10/07/2021 9:59 AM MANAGER INTENSIVE CARE UNIT): Asymptomatic. She is out of nitroglycerin. I refilled this for her in stressed the importance of her keeping nitroglycerin available should she have any recurrence of coronary spasm. Continue aspirin. Continue working with Dr. Ashford regarding hyperlipidemia. I recommended cardiology follow-up in one year. As she no longer drives in [place], it would be much more convenient for her to follow up closer to home. I recommended that she contact Dr. Ashford for a referral. Assessment & Plan (10/04/2020 10:57 AM MANAGER INTENSIVE CARE UNIT): Asymptomatic on isosorbide. Assessment & Plan (08/01/2019 7:14 PM MANAGER INTENS[facility] CARE UNIT): Asymptomatic on current regimen. Assessment & Plan (08/02/2018 1:25 PM MANAGER INTENSIVE CARE UNIT): Asymptomatic on isosorbide. Essential hypertension 08/03/2017 Assessment & Plan (10/07/2021 10:00 AM MANAGER INTENSIVE CARE UNIT): Blood pressure is well controlled on metoprolol 50 mg b.i.d. and quinapril 20 mg b.i.d.. Continue both. Assessment & Plan (10/04/2020 10:57 AM MANAGER INTENSIVE CARE UNIT): Blood pressure is adequately controlled on current regimen. No change was made. Assessment & Plan (08/01/2019 7:16 PM MANAGER INTENSIVE CARE UNIT): Blood pressure is adequately controlled on current regimen. No change was made. Assessment & Plan (08/02/2018 1:25 PM MANAGER INTENSIVE CARE UNIT): Well controlled on current regimen which was not changed. Assessment & Plan (08/04/2017 7:27 PM MANAGER INTENSIVE CARE UNIT): Blood pressure is adequately controlled on current regimen. No change was made. Hyperlipidemia 08/03/2017 Assessment & Plan (10/07/2021 10:00 AM MANAGER INTENSIVE CARE UNIT): Severe dyslipidemia, treatment of which has been challenging given her intolerance of statins and Zetia. It is surprising that her insurance will not cover Repatha. Assessment & Plan (10/04/2020 10:58 AM MANAGER INTENSIVE CARE UNIT): Lipids today are terrible. She is not currently on Repatha. Will ask staff to investigate on her behalf. Assessment & Plan (08/01/2019 7:16 PM MANAGER INTENSIVE CARE UNIT): She is on Repatha. Total cholesterol is 178. LDL could not be calculated but HDL is 56, so LDL is no more than 122. Assessment & Plan (08/02/2018 1:25 PM MANAGER INTENSIVE CARE UNIT): She is on Repatha. She is due for lipids to be checked through her PCP in the near future. Assessment & Plan (08/04/2017 7:27 PM MANAGER INTENSIVE CARE UNIT): Intolerant of statin therapy. Continue Repatha. Osteoarthritis [...] on file Legal Sex Female 4:57 PM MANAGER INTENSIVE CARE UNIT Gender Identity Not on file Sexual Orientation [...] Advance Directives For more information, please contact: [phone] Documents on File Type Date Recorded Patient Regulatory Submissions Associate Expl anation ADVANCE DIRECTIVE 10/22/2017 12:00 AM Care Teams Porcelain Enamel Sprayer Relationship Specialty Start Date End Date Dejan Ashford MD [address] [facility] [address] [place] [address] PCP - General 12/04/16
--- OUTSIDE RECORDS SUMMARY | 2025-03-27 20:00 | XMS_ITS | Encounter Summary ---
Author Organization [facility] Address [address] [place] [address] Care Team Providers Care Pickle Maker Name Role Phone Dejan Ashford MD Primary Care Provider [phone] Sherly Waddell RN Unavailable [phone] Encounter Details Date Type Department Care Team (Late st Contact Info) Description 12/16/2022 Lab Requisition [facility] [address] [place] [id number] Taj Smith MD [address] [place] [address] Social History Tobacco Use Types Packs/Day Years Used Date Smoking Tobacco: Never Smokeless Tobacco: Never Alcohol Use Standard Drinks/Week Comments Yes 7 (1 standard drink = 0.6 oz pur e alcohol) WEEK Comments No Sex and Gender Information Value Date Recorded Sex Assigned at Not on file Legal Sex Female 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, directed by Dr. Del Gottlieb. These tests need not be, and therefore are not, approved by the [place] Food and Drug Administration. The tests are used for clinical purposes. Billing Codes Specimen Charges Stain Charges 96672 00364 [id number] 1 1 1 1 1 3 1:41 [...] ORD ERABLES Final Result DERMATOPATHOLOGY LABORATORY [facility] - Department of Dermatology [facility] Specialized Medicine [address] [place] [address], [address] [phone] documented in this encounter Visit Diagnoses Not on filedocumented in this encounter Additional Health Concerns Infection Onset Date Last Indicated Resolved Time COVID-19 Under Investigation 01/11/2025 01/11/2025 01/11/2025 4:35 PM CDT documented as of this encounter Care Teams Pickle Maker Relationship Specialty Start Date End Date Dejan Ashford MD [address] [place] [address] PCP - General Internal Medicine 09/29/18 Sherly Waddell, RN Fence Installer Helper 01/12/19 documented as of this encounter
[2025-03-27 20:10] LABS: Hematocrit 36.0 % (37.0-47.0); Hemoglobin 12.4 g/dL (12.0-15.0); Immature Granulocyte Percent A 0.3 % (0-0.5); Lymphocytes Absolute Auto 2.72 K/mm3 (0.9-3.2); Mean Corpuscular HGB Conc 34.4 g/dl (32-36); Mean Corpuscular Hemoglobin 32.9 pg (26-34); Mean Corpuscular Volume 95.5 fl (80-100); Nucleated Red Blood Cells Absolute Auto 0.000 K/mm3 (0.0-0.012); Nucleated Red Blood Cells Perc 0.0 % (0.0-0.2); Platelet Count Result 232 k/mm3 (150-375); Red Blood Count 3.77 M/mm3 (4.2-5.4); White Blood Count 9.0 K/mm3 (4.5-10.0)
[2025-03-27 20:29] LABS: Alanine Aminotransferase 16 U/L (6-35); Albumin Level 4.5 g/dL (3.5-5.1); Alkaline Phosphatase 85 U/L (38-126); Anion Gap 12 mmol/L (4-12); Aspartate Amino Transferase 31 U/L (14-36); Bilirubin,Total 0.4 mg/dL (0.2-1.3); Blood Urea Nitrogen 14 mg/dL (7-17); Calcium 9.0 mg/dL (8.4-10.2); Carbon Dioxide 24 mmol/L (22-30); Chloride 101 mmol/L (98-107); Estimated Glomerular Filt Rate 56; Glucose 99 mg/dL (65-110); Potassium 3.2 mmol/L (3.4-5.0); Sodium 137 mmol/L (137-145); Total Protein 7.6 g/dL (6.3-8.2)
[2025-03-27 20:30] LABS: Acetaminophen < 10 ug/mL (10-30); Salicylate < 1.0 mg/dL (2-20)
[2025-03-27 20:46] LABS: Influenza A QL RT-PCR Negative (Negative); Influenza B QL RT-PCR Negative (Negative); RSV RNA, RT-PCR Negative (Negative); SARS-CoV-2 RNA PCR Negative (Negative)
[2025-03-27 21:05] LABS: Thyroid Stimulating Hormone 0.436 uIU/mL (0.465-4.680)
[2025-03-27 21:54] LABS: Add Urine Microscopic? NO; Appearance Urine Clear (Clear); Glucose Urine UA Negative (Negative); Leukocyte Esterase Ur Negative LEU/UL (Negative); Nitrate Urine Negative (Negative); Specific Grav Ur 1.006 (1.001-1.035)
--- NOTE | 2025-03-27 21:57 | ED.GENADULT ---
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 Protein 7.6 (6.3-8.2) g/dL Albumin 4.5 (3.5-5.1) g/dL TSH 0.436 L (0.465-4.680) uIU/mL Urine Color Yellow (Yellow) Urine Appearance Clear (Clear) Urine pH 5.5 (5.0-9.0) Ur Specific [place] 1.006 (1.001-1.035) Urine Protein Negative (Negative) mg/dL Urine Glucose (UA) Negative (Negative) mg/dL Urine Ketones Negative (Negative) mg/dL Ur Blood (Man) Negative (Negative) Urine Nitrate Negative (Negative) Urine Bilirubin Negative (Negative) Urine Urobilinogen 0.2 (<2.0) mg/dL Leukocyte Esterase Rfl Negative (Negative) AMY/UL Salicylates < 1.0 L (2-20) mg/dL Urine Opiates Screen Negative (Negative) Urine Methadone Screen Negative (Negative) Acetaminophen < 10 L (10-30) ug/mL Ur Barbiturates Screen Negative (Negative) Ur Phencyclidine Scrn Negative (Negative) Ur Amphetamine Screen Negative (Negative) U Benzodiazepines Scrn Negative (Negative) Urine Cocaine Screen Negative (Negative) U Cannabinoids Screen Negative (Negative) Ethyl Alcohol 157 95 (<10) mg/dL Influenza A (RT-PCR) Negative (Negative) Influenza B (RT-PCR) Negative (Negative) RSV (RT-PCR) Negative (Negative) SARS-CoV-2 RNA (RT-PCR) Negative (Negative) 03/28/25 Range/Units 03:47 WBC (4.5-10.0) K/mm3 RBC (4.2-5.4) M/mm3 Hgb (12.0-15.0) g/dL Hct (37.0-47.0) % MCV (80-100) fl MCH (26-34) pg MCHC (32-36) g/dl RDW (11.5-14.5) % Plt Count (150-375) k/mm3 MPV (7.4-10.4) fl Immature Gran % (Auto) (0-0.5) % Neut % (Auto) (45.5-73.1) % Lymph % (Auto) (18.3-44.2) % Craig % (Auto) (2.6-8.5) % Eos % (Auto) (0-4.4) % Baso % (Auto) (0.2-1.2) % Lymph # (Auto) (0.9-3.2) K/mm3 [place] # (Auto) (0.1-0.6) K/mm3 Eos # (Auto) (0-0.3) K/mm3 Baso # (Auto) (0.0-0.1) K/mm3 Abs Immat Gran (auto) (0.00-0.031) K/mm3 Absolute Neuts (auto) (1.3-6.7) K/mm3 Absolute Nucleated RBC (0.0-0.012) K/mm3 Nucleated RBC % (0.0-0.2) % Sodium (137-145) mmol/L Potassium (3.4-5.0) mmol/L Chloride (98-107) mmol/L Carbon Dioxide (22-30) mmol/L Anion Gap (4-12) mmol/L BUN (7-17) mg/dL Creatinine (0.7-1.0) mg/dL Estim Creat Clear Calc Estimated GFR (59 - ) Glucose (65-110) mg/dL Calcium (8.4-10.2) mg/dL Total Bilirubin (0.2-1.3) mg/dL AST (14-36) U/L ALT (6-35) U/L Alkaline Phosphatase (38-126) U/L Total Protein (6.3-8.2) g/dL Albumin (3.5-5.1) g/dL TSH (0.465-4.680) uIU/mL Urine Color (Yellow) Urine Appearance (Clear) Urine pH (5.0-9.0) Ur Specific [place] (1.001-1.035) Urine Protein (Negative) mg/dL Urine Glucose (UA) (Negative) mg/dL Urine Ketones (Negative) mg/dL Ur Blood (Man) (Negative) Urine Nitrate (Negative) Urine Bilirubin (Negative) Urine Urobilinogen (<2.0) mg/dL Leukocyte Esterase Rfl (Negative) AMY/UL Salicylates (2-20) mg/dL Urine Opiates Screen (Negative) Urine Methadone Screen (Negative) Acetaminophen (10-30) ug/mL Ur Barbiturates Screen (Negative) Ur Phencyclidine Scrn (Negative) Ur Amphetamine Screen (Negative) U Benzodiazepines Scrn (Negative) Urine Cocaine Screen (Negative) U Cannabinoids Screen (Negative) Ethyl Alcohol < 10 (<10) mg/dL Influenza A (RT-PCR) (Negative) Influenza B (RT-PCR) (Negative) RSV (RT-PCR) (Negative) SARS-CoV-2 RNA (RT-PCR) (Negative) <Simone Rossi MD - Last Filed: 03/28/25 19:01> Lab Results 03/27/25 03/27/25 03/27/25 Range/Units 20:06 21:45 22:33 WBC 9.0 (4.5-10.0) K/mm3 RBC 3.77 L (4.2-5.4) M/mm3 Hgb 12.4 (12.0-15.0) g/dL Hct 36.0 L (37.0-47.0) % MCV 95.5 (80-100) fl MCH 32.9 (26-34) pg MCHC 34.4 (32-36) g/dl RDW 13.2 (11.5-14.5) % Plt Count 232 (150-375) k/mm3 MPV 9.3 (7.4-10.4) fl Immature Gran % (Auto) 0.3 (0-0.5) % Neut % (Auto) 61.3 (45.5-73.1) % Lymph % (Auto) 30.2 (18.3-44.2) % Craig % (Auto) 5.3 (2.6-8.5) % Eos % (Auto) 2.2 (0-4.4) % Baso % (Auto) 0.7 (0.2-1.2) % Lymph # (Auto) 2.72 (0.9-3.2) K/mm3 [place] # (Auto) 0.5 (0.1-0.6) K/mm3 Eos # (Auto) 0.2 (0-0.3) K/mm3 Baso # (Auto) 0.1 (0.0-0.1) K/mm3 Abs Immat Gran (auto) 0.03 (0.00-0.031) K/mm3 Absolute Neuts (auto) 5.5 (1.3-6.7) K/mm3 Absolute Nucleated RBC 0.000 (0.0-0.012) K/mm3 Nucleated RBC % 0.0 (0.0-0.2) % Sodium 137 (137-145) mmol/L Potassium 3.2 L (3.4-5.0) mmol/L Chloride 101 (98-107) mmol/L Carbon Dioxide 24 (22-30) mmol/L Anion Gap 12 (4-12) mmol/L BUN 14 D (7-17) mg/dL Creatinine 0.96 (0.7-1.0) mg/dL Estim Creat Clear Calc Not Reportable Estimated GFR 56 L (59 - ) Glucose 99 (65-110) mg/dL Calcium 9.0 (8.4-10.2) mg/dL Total Bilirubin 0.4 (0.2-1.3) mg/dL AST 31 (14-36) U/L ALT 16 (6-35) U/L Alkaline Phosphatase 85 (38-126) U/L Total Protein 7.6 (6.3-8.2) g/dL Albumin 4.5 (3.5-5.1) g/dL TSH 0.436 L (0.465-4.680) uIU/mL Urine Color Yellow (Yellow) Urine Appearance Clear (Clear) Urine pH 5.5 (5.0-9.0) Ur Specific [place] 1.006 (1.001-1.035) Urine Protein Negative (Negative) mg/dL Urine Glucose (UA) Negative (Negative) mg/dL Urine Ketones Negative (Negative) mg/dL Ur Blood (Man) Negative (Negative) Urine Nitrate Negative (Negative) Urine Bilirubin Negative (Negative) Urine Urobilinogen 0.2 (<2.0) mg/dL Leukocyte Esterase Rfl Negative (Negative) AMY/UL Salicylates < 1.0 L (2-20) mg/dL Urine Opiates Screen Negative (Negative) Urine Methadone Screen Negative (Negative) Acetaminophen < 10 L (10-30) ug/mL Ur Barbiturates Screen Negative (Negative) Ur Phencyclidine Scrn Negative (Negative) Ur Amphetamine Screen Negative (Negative) U Benzodiazepines Scrn Negative (Negative) Urine Cocaine Screen Negative (Negative) U Cannabinoids Screen Negative (Negative) Ethyl Alcohol 157 95 (<10) mg/dL Influenza A (RT-PCR) Negative (Negative) Influenza B (RT-PCR) Negative (Negative) RSV (RT-PCR) Negative (Negative) SARS-CoV-2 RNA (RT-PCR) Negative (Negative) 03/28/25 Range/Units 03:47 WBC (4.5-10.0) K/mm3 RBC (4.2-5.4) M/mm3 Hgb (12.0-15.0) g/dL Hct (37.0-47.0) % MCV (80-100) fl MCH (26-34) pg MCHC (32-36) g/dl RDW (11.5-14.5) % Plt Count (150-375) k/mm3 MPV (7.4-10.4) fl Immature Gran % (Auto) (0-0.5) % Neut % (Auto) (45.5-73.1) % Lymph % (Auto) (18.3-44.2) % Craig % (Auto) (2.6-8.5) % Eos % (Auto) (0-4.4) % Baso % (Auto) (0.2-1.2) % Lymph # (Auto) (0.9-3.2) K/mm3 [place] # (Auto) (0.1-0.6) K/mm3 Eos # (Auto) (0-0.3) K/mm3 Baso # (Auto) (0.0-0.1) K/mm3 Abs Immat Gran (auto) (0.00-0.031) K/mm3 Absolute Neuts (auto) (1.3-6.7) K/mm3 Absolute Nucleated RBC (0.0-0.012) K/mm3 Nucleated RBC % (0.0-0.2) % Sodium (137-145) mmol/L Potassium (3.4-5.0) mmol/L Chloride (98-107) mmol/L Carbon Dioxide (22-30) mmol/L Anion Gap (4-12) mmol/L BUN (7-17) mg/dL Creatinine (0.7-1.0) mg/dL Estim Creat Clear Calc Estimated GFR (59 - ) Glucose (65-110) mg/dL Calcium (8.4-10.2) mg/dL Total Bilirubin (0.2-1.3) mg/dL AST (14-36) U/L ALT (6-35) U/L Alkaline Phosphatase (38-126) U/L Total Protein (6.3-8.2) g/dL Albumin (3.5-5.1) g/dL TSH (0.465-4.680) uIU/mL Urine Color (Yellow) Urine Appearance (Clear) Urine pH (5.0-9.0) Ur Specific [place] (1.001-1.035) Urine Protein (Negative) mg/dL Urine Glucose (UA) (Negative) mg/dL Urine Ketones (Negative) mg/dL Ur Blood (Man) (Negative) Urine Nitrate (Negative) Urine Bilirubin (Negative) Urine Urobilinogen (<2.0) mg/dL Leukocyte Esterase Rfl (Negative) AMY/UL Salicylates (2-20) mg/dL Urine Opiates Screen (Negative) Urine Methadone Screen (Negative) Acetaminophen (10-30) ug/mL Ur Barbiturates Screen (Negative) Ur Phencyclidine Scrn (Negative) Ur Amphetamine Screen (Negative) U Benzodiazepines Scrn (Negative) Urine Cocaine Screen (Negative) U Cannabinoids Screen (Negative) Ethyl Alcohol < 10 (<10) mg/dL Influenza A (RT-PCR) (Negative) Influenza B (RT-PCR) (Negative) RSV (RT-PCR) (Negative) SARS-CoV-2 RNA (RT-PCR) (Negative) <Mila Love MD - Last Filed: 03/28/25 19:24> Discharge Plan Discharge Clinical Impression: Suicidal ideation, Alcohol intoxication <Santo Ferrara MD - Last Filed: 03/30/25 06:57> Patient Disposition: Home <Santo Ferrara MD - Last Filed: 03/30/25 06:57> Condition: Stable <Santo Ferrara MD - Last Filed: 03/30/25 06:57> Instructions: Antibiotic Form, Alcohol Intoxication (DC), Abuse of Alcohol (ED), Help Prevent Suicide in Older Adults (ED) <Santo Ferrara MD - Last Filed: 03/30/25 06:57> Additional Instructions: Continue to use the resources that have been made available to you, including the written resources and the daily phone calls. Follow-up with your primary care doctor. Return to the emergency department with any new or worsening symptoms. <Santo Ferrara MD - Last Filed: 03/30/25 06:57> Patient Language: Estonian <Santo Ferrara MD - Last Filed: 03/30/25 06:57> Prescriptions: No Action prenat.vits,asya,[id number] Tablet 1 tablet PO DAILY aspirin 81 mg tablet,chewable 81 mg PO DAILY ondansetron 8 mg tablet,disintegrating 8 mg PO Q8H PRN (Reason: nausea and vomiting) Qty: 30 0RF Fish oil BYMOUTH psyllium Packet 1 packet PO DAILY Rx Instructions: mix into at least 8 oz of water or juice before administering levocetirizine [Xyzal] 5 mg Tablet 5 mg PO DAILY melatonin 10 mg Tablet,Chewable 10 mg PO DAILY mecobalamin (vitamin B12) 1,000 mcg tablet,chewable 1,000 mcg PO DAILY Repatha SureClick 140 mg/mL pen injector See Rx Instructions .ROUTE .COMPLEX Qty: 2 1RF Dose Instruction: INJECT 140MG SUBCUTANEOUSLY ONCE EVERY 2 WEEKS Rx Instructions: INJECT 140MG SUBCUTANEOUSLY ONCE EVERY 2 WEEKS metoprolol tartrate 50 mg tablet See Rx Instructions .ROUTE .COMPLEX Qty: 180 1RF Dose Instruction: TAKE 1 TABLET BY MOUTH EVERY 12 HOURS Rx Instructions: TAKE 1 TABLET BY MOUTH EVERY 12 HOURS lisinopril 40 mg tablet See Rx Instructions .ROUTE .COMPLEX Qty: 90 1RF Dose Instruction: Take 1/2 (one-half) tablet by mouth twice daily Rx Instructions: Take 1/2 (one-half) tablet by mouth twice daily potassium chloride 10 mEq tablet extended release See Rx Instructions .ROUTE .COMPLEX Qty: 90 1RF Dose Instruction: Take 1 tablet by mouth once daily Rx Instructions: Take 1 tablet by mouth once daily omeprazole 40 mg capsule,delayed release(DR/EC) See Rx Instructions .ROUTE .COMPLEX Qty: 180 0RF Dose Instruction: Take 1 capsule by mouth twice daily Rx Instructions: Take 1 capsule by mouth twice daily bumetanide 1 mg tablet 2 mg PO DAILY Qty: 180 1RF Rx Instructions: Take 2 tablets by mouth once daily <Santo Ferrara MD - Last Filed: 03/30/25 06:57> Follow-up/Referrals: Dejan Ashford MD [Primary Care Provider] - <Santo Ferrraa MD - Last Filed: 03/30/25 06:57> Stand Alone Forms: Work/School Release IP <Santo Ferrara MD - Last Filed: 03/30/25 06:57> Time of Disposition: 19:23 <Santo Ferrara MD - Last Filed: 03/30/25 06:57> 19:23 <Irving Wadsworth MD - Last Filed: 03/28/25 07:00> 19:23 <Simone Rossi MD - Last Filed: 03/28/25 19:01> 19:23 <Mila Love MD - Last Filed: 03/28/25 19:24>
[2025-03-27 22:14] LABS: Cannabinoid Screen Urine Negative (Negative)
--- NOTE | 2025-03-28 06:04 | PC.NURSE ---
pt chart was faxed to Herlinda Win at [facility] for review
[2025-03-28 07:33] VITALS: BP 177/88; PULSE 86; RESP 19; TEMP 36.6; O2SAT 99
--- NOTE | 2025-03-28 07:35 | PC.NURSE ---
Assumed care of pt, pt is resting w/ lights dimmed, sitter at bedside. Pt VS taken and stable. Pt requesting breakfast and a tray was ordered by this RN at this time. Sitter is at bedside, [place] reassess neg and charge master analyst made aware.
--- NOTE | 2025-03-28 10:03 | PCCCNOTE ---
Called the following locations to check on the status of the referral. 1. [id number]-[facility] in [facility] at [phone] and spoke with Дмитрий. He stated he's not in intake, unsure if there is a pending admission for this patient. Stated IT is working on their fax d/t it previously not been in operation. Also stated at this time they do not have an open bed for her. Did fax clinical to [phone] 2. 0955-[facility] at [phone] and spoke with Mine. Stated they had received her chart and it is currently under review. 3. 0933-[facility] in [facility] at [phone] and spoke with Jami. Stated the pt is currently on their wait list. [id number]- at [phone] [facility] in [facility] and had to [facility] for a return call. Charge nurse updated on the status.-gretel
[2025-03-28 13:50] VITALS: BP 157/85; PULSE 85; RESP 16; O2SAT 99
[2025-03-28 19:53] VITALS: BP 182/87; PULSE 80; RESP 18; O2SAT 100
== END 2025-03-28 19:56 | disposition home or self-care (01) ==
PROVIDERS: Emergency Medicine; Emergency Provider Student in an Organized Health Care Education/Training Program; PCP Internal Medicine
DX: R45.851 Suicidal ideations (principal); F10.229 Alcohol dependence with intoxication, unspecified; Y90.6 Blood alcohol level of 120-199 mg/100 ml; Z11.52 Encounter for screening for COVID-19; I10 Essential (primary) hypertension; E78.01 Familial hypercholesterolemia; E67.3 Hypervitaminosis D; K21.9 Gastro-esophageal reflux disease without esophagitis; G47.33 Obstructive sleep apnea (adult) (pediatric); Z86.73 Personal history of transient ischemic attack (TIA), and cerebral infarction without residual deficits; Z86.2 Personal history of diseases of the blood and blood-forming organs and certain disorders involving the immune mechanism; Z90.49 Acquired absence of other specified parts of digestive tract; Z90.710 Acquired absence of both cervix and uterus; Z79.82 Long term (current) use of aspirin; Z79.899 Other long term (current) drug therapy
CPT/HCPCS: 36415; 80053; 80143; 80179; 80307; 81003; 82077; 84443; 85025; 87637; 99284

== ENCOUNTER 2025-06-07 08:36 | Outpatient (CLI) | payer MEDICARE, SELFPAY ==
--- NOTE | ~2025-06-07 | US_ITS ---
EXAMINATION: US renal BI DATE: 06/07/2025 08:59 INDICATION: Abnormal renal labs TECHNIQUE: Multiple ultrasound grayscale images of the kidneys were obtained. COMPARISON: None. FINDINGS: The right kidney measures 9.0 x 4.6 x 4.1 cm. The left kidney measures 9.8 x 4.7 x 4.9 cm. The kidneys demonstrate normal echogenicity. There is no hydronephrosis in either kidney. No stones identified. The bladder is normal. IMPRESSION: 1. Normal kidneys without hydronephrosis. Reviewed, dictated and finalized at location A.
== END 2025-06-07 08:37 | disposition home or self-care (01) ==
LOC: GOSHIMG 08:37
PROVIDERS: PCP Internal Medicine; Visit Provider Internal Medicine
DX: R79.89 Other specified abnormal findings of blood chemistry (principal)
CPT/HCPCS: 76770

== ENCOUNTER 2025-08-18 22:47 | Emergency (ER) | payer MEDICARE, SELFPAY ==
[2025-08-18] VITALS (11 sets, daily range): BP systolic 99–117; BP diastolic 47–57; PULSE 66–72; RESP 12–18; TEMP 36.6; O2SAT 91–100
--- NOTE | ~2025-08-18 | XR_ITS ---
Examination: XR chest 1V portable Clinical History: syncope Comparison: 03/05/2024 Technique: Portable AP Findings: Heart size upper limit of normal. Elevated right hemidiaphragm. Lungs otherwise clear. No acute bony abnormality. IMPRESSION: 1. No acute cardiopulmonary findings given portable technique. Reviewed, dictated and finalized at location R. OLOGY ADMINISTRATOR
--- NOTE | ~2025-08-18 | CT_ITS ---
CT HEAD NON-CONTRAST Clinical History: syncope, hx cerebral anusreym coiling and CVA Comparison: 03/05/2024 Technique: Unenhanced axial images skull base to vertex Coronal, sagittal reformats CT images acquired with automatic exposure control for dose reduction DLP: 605 mGy-cm Findings: Right frontal craniotomy. Aneurysm coils and clips as before, causing severe streak artifact obscuring region. Inferior right frontal lobe encephalomalacia. Sulci, ventricles: Unremarkable. No intracerebral hemorrhage. No evidence acute territorial infarct. No mass effect, midline shift. Visualized paranasal sinuses: Clear. Mastoid air cells: Clear. IMPRESSION: 1. No acute intracranial findings. Reviewed, dictated and finalized at location R. HER DRAMA
--- NOTE | 2025-08-18 22:51 | ECG_ITS ---
Test Date: 2025-08-18 22:54:03 Measurements Intervals [place] Rate: 66 P: 46 OK: 158 QRS: 12 QRSD: 95 T: 45 QT: 363 QTc: 383 Interpretive Statements SINUS RHYTHM NORMAL ECG Compared to ECG 09/30/2024 21:42:29 NO SIGNIFICANT CHANGE Electronically Signed On 08-19-2025 09:15:55 TRACK MANAGER by Hernandez Multani D.O.
--- NOTE | 2025-08-18 23:16 | ED.SYNCOPE ---
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 Patient presents to the emergency department today with a syncopal event that was witnessed. Patient was at a dinner libertarian with her and friends. She got up to try and go to home and felt lightheaded and lost consciousness briefly for 30 seconds. Prior to this she had no symptoms but afterwards she was cold and clammy and feeling nauseous. Short-lived aside from the nausea which she still has currently. She states she has no other complaints at this time. Did not hit her head on the syncope event and did not collapse to the ground she was slowly lowered by her family and friends. No seizure activity or shaking. She regained consciousness after several seconds and had no other neurological findings or complaints. She did admit to drinking minimal amounts of alcohol and not any water throughout the day. Feels thirsty today and now endorses going to the bathroom quite a bit but denies any diarrhea or vomiting. No chest pain or chest tightness. No headache or vision changes. No weakness or numbness in the arms or legs. No abdominal pain or back pain. Was otherwise in her normal state of health. No recent medication changes. Follows regularly with her regular primary doctor. Related Data Home Medications ?Medication ?Instructions ?Recorded ?Confirmed ?Last Taken ?Type aspirin 81 mg chewable tablet 81 mg PO DAILY 06/22/22 07/12/25 Unknown History prenat.vits,asya,[id number] 1 tablet PO DAILY 06/22/22 07/12/25 Unknown History mecobalamin (vitamin B12) 1,000 1,000 mcg PO DAILY 04/05/23 07/12/25 Unknown History mcg chewable tablet melatonin 10 mg chewable tablet 10 mg PO DAILY 05/24/23 07/12/25 Unknown History levocetirizine 5 mg tablet (Xyzal) 5 mg PO DAILY 03/05/24 07/12/25 Unknown History psyllium 1 packet PO DAILY 03/05/24 07/12/25 Unknown History Fish oil BYMOUTH 02/12/25 07/12/25 Unknown History fenofibrate 150 mg capsule 150 mg PO DAILY 05/31/25 07/12/25 Unknown History Allergies Allergy/AdvReac Type Severity Reaction Status Date / Time meperidine Allergy Unknown Vomiting Verified 08/18/25 22:54 morphine Allergy Unknown Itching Verified 08/18/25 22:54 Fztswjl-[id number]-NgI Reductase Allergy Unknown Muscle Pain Verified 08/18/25 22:54 Inhibitor (Sxtisrk-Rat-Fmi Reductase Inhibitor) VICYL SUTURES Allergy Unknown ABCESS Uncoded 07/12/25 13:01 Review of Systems Review of Systems: As reviewed above in HPI All systems reviewed & are unremarkable except as noted in HPI and below PMFSH Past Medical History Medical History Depression Elevated serum creatinine ETOHism Psychiatric complaint BMI 26.0-26.9,adult Effusion of knee joint Obstructive sleep apnea BMI 27.0-27.9,adult Torn meniscus Encounter for routine adult health examination with abnormal findings Cellulitis Lumbar back pain with radiculopathy affecting right lower extremity Intractable headache Mixed hyperlipidemia Essential (primary) hypertension Vitamin D deficiency BMI 32.0-32.9,adult Hypervitaminosis D Cognitive dysfunction Statin intolerance Familial hypercholesterolemia BMI 30.0-30.9,adult Syncope Fall BMI 31.0-31.9,adult Anxiety GERD (gastroesophageal reflux disease) Chronic pruritus Anterior communicating artery aneurysm Seborrheic dermatitis Microvascular angina Benign essential hypertension Anemia Hyperlipidemia Hypertension CVA (cerebral vascular accident) had cardiac cath causing plaque embolism Surgical History Surgical History S/P right knee arthroscopy History of surgery for cerebral aneurysm History of cholecystectomy (~2002) History of surgery on lower extremity (~1977) Tail bone removal History of cerebral aneurysm repair times 2 2019 History of spinal surgery 2017 History of foot surgery right in 2013 left in 2015 History of repair of hip joint 2006 History of laparoscopic cholecystectomy 2002 History of rotator cuff surgery left in 1996 right 1999 History of bladder surgery times 7 from [id number] History of bunionectomy 1979 right one in 1998 History of hysterectomy total 1978 Family History Family History Father Diabetes mellitus Hypertension Family history of malignant neoplasm Family history of diabetes mellitus in first degree relative Family history of heart disease in male family member before age 55 Heart disease Mother Hypertension Family history of heart disease in male family member before age 55 Heart disease Sibling Family history of cardiovascular disease Family history of heart disease in male family member before age 55 Grandparent Carcinoma of colon Social History Social History Social History: Surrogate medical decision maker: Curtis Gallegos, spouse. Code status: Full code. Smoking status: Never smoker Second hand tobacco smoke exposure: No Alcohol intake: current Drinks per week: 7 Substance use: never Substance use type: does not use Lack of Transportation: No Lack of Food: Never True Current Housing: I Have Housing Concerned About Future Housing: No Difficulty Paying Gas/Electric Bills: No Difficulty Paying for Meds: No Currently Unemployed: No Education: Don't Know Difficulty w/ Childcare or Family Care: No Living arrangements: with family Additional living arrangements comments: Lives with in [place]. 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 Spiritual care concerns: No Exam Narrative: GENERAL: [Well-appearing, well-nourished, and in no acute distress.] HEAD: [Normocephalic, atraumatic.] EYES: [PERRLA and EOMI.] ENT: Nares clear, no rhinorrhea or epistaxis. Mucous membranes moist. NECK: Supple. CHEST: [Clear to auscultation. No respiratory distress.] HEART: [Regular rate and rhythm]. No murmur heard. [Normal peripheral pulses.] ABDOMEN: [Soft, nondistended], [nontender], [No rigidity or guarding] EXTREMITIES: Normal range of motion. [No edema.] SKIN: Warm, dry, no rash. NEURO: [No focal deficits]. Alert and oriented [x3.] PSYCH: [Normal mood and affect.] Course Vital Signs Vital signs: Vital Signs Temperature 36.6 C 08/18/25 22:44 Pulse Rate 68 08/18/25 22:44 Respiratory Rate 18 08/18/25 22:44 Blood Pressure 117/57 L 08/18/25 22:44 Pulse Oximetry 99 08/18/25 22:44 Oxygen Delivery Room Air 08/18/25 22:44 Temperature 36.6 C 08/19/25 02:16 Pulse Rate 76 08/19/25 02:16 Respiratory Rate 15 08/19/25 02:16 Blood Pressure 111/53 L 08/19/25 02:16 Pulse Oximetry 93 08/19/25 02:16 Oxygen Delivery Room Air 08/18/25 22:57 Discharge Plan Discharge Clinical Impression: Orthostatic syncope, Acute dehydration, KJ (acute kidney injury) Patient Disposition: Home Condition: Stable Instructions: Antibiotic Form, Dehydration (ED), Syncope (ED) Additional Instructions: Laboratory studies showed dehydration with a slight kidney injury from decreased intake. CT scan shows no hemorrhage or acute abnormality. We did hydrate you significantly with fluids and your vital signs are all stable and normal now. Follow-up with regular doctor. Likely orthostatic event leading towards the syncope today. Return with any recurrent events so, worsening symptoms or new emergent concerns otherwise you can safely go home and see her PCP for further care. Patient Language: Tristanian Prescriptions: No Action prenat.vits,asya,[id number] Tablet 1 tablet PO DAILY aspirin 81 mg tablet,chewable 81 mg PO DAILY ondansetron 8 mg tablet,disintegrating 8 mg PO Q8H PRN (Reason: nausea and vomiting) Qty: 30 0RF Fish oil BYMOUTH psyllium Packet 1 packet PO DAILY Rx Instructions: mix into at least 8 oz of water or juice before administering levocetirizine [Xyzal] 5 mg Tablet 5 mg PO DAILY melatonin 10 mg Tablet,Chewable 10 mg PO DAILY mecobalamin (vitamin B12) 1,000 mcg tablet,chewable 1,000 mcg PO DAILY Repatha SureClick 140 mg/mL pen injector See Rx Instructions .ROUTE .COMPLEX Qty: 2 1RF Dose Instruction: INJECT 140MG SUBCUTANEOUSLY ONCE EVERY 2 WEEKS Rx Instructions: INJECT 140MG SUBCUTANEOUSLY ONCE EVERY 2 WEEKS potassium chloride 10 mEq tablet extended release See Rx Instructions .ROUTE .COMPLEX Qty: 90 1RF Dose Instruction: Take 1 tablet by mouth once daily Rx Instructions: Take 1 tablet by mouth once daily bumetanide 1 mg tablet 2 mg PO DAILY Qty: 180 1RF Rx Instructions: Take 2 tablets by mouth once daily omeprazole 40 mg capsule,delayed release(DR/EC) See Rx Instructions .ROUTE .COMPLEX Qty: 180 1RF Dose Instruction: Take 1 capsule by mouth twice daily Rx Instructions: Take 1 capsule by mouth twice daily fenofibrate 150 mg capsule 150 mg PO DAILY metoprolol tartrate 50 mg tablet See Rx Instructions .ROUTE .COMPLEX Qty: 180 1RF Dose Instruction: TAKE 1 TABLET BY MOUTH EVERY 12 HOURS Rx Instructions: TAKE 1 TABLET BY MOUTH EVERY 12 HOURS lisinopril 40 mg tablet See Rx Instructions .ROUTE .COMPLEX Qty: 90 0RF Dose Instruction: Take 1/2 (one-half) tablet by mouth twice daily Rx Instructions: Take 1/2 (one-half) tablet by mouth twice daily Follow-up/Referrals: Dejan Ashford MD [Primary Care Provider, Internal Medicine] Time of Disposition: 02:07 [facility] MDM Narrative Medical decision making narrative: 80-year-old female with history of hypertension, hyperlipidemia, 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 Patient presents to the emergency department today with a syncopal event that was witnessed. Patient was at a dinner libertarian with her and friends. She got up to try and go to home and felt lightheaded and lost consciousness briefly for 30 seconds. Prior to this she had no symptoms but afterwards she was cold and clammy and feeling nauseous. Short-lived aside from the nausea which she still has currently. She states she has no other complaints at this time. Did not hit her head on the syncope event and did not collapse to the ground she was slowly lowered by her family and friends. No seizure activity or shaking. She regained consciousness after several seconds and had no other neurological findings or complaints. She did admit to drinking minimal amounts of alcohol and not any water throughout the day. Feels thirsty today and now endorses going to the bathroom quite a bit but denies any diarrhea or vomiting. No chest pain or chest tightness. No headache or vision changes. No weakness or numbness in the arms or legs. No abdominal pain or back pain. Was otherwise in her normal state of health. No recent medication changes. Follows regularly with her regular primary doctor. patient is overall well-appearing but does have soft blood pressure readings currently 99/47. She admits to feeling nauseous but no other symptoms. She has a benign neurological examination, awake alert oriented. Strong symmetric pulses throughout. No signs of injury or trauma. Suspect vasovagal event versus orthostatic event given the soft blood pressure readings. She has no infectious symptoms at this time. Low suspicion intracranial pathology but she does have risk factors including her aneurysm. She has no stroke findings at this time. Low suspicion intracranial pathology or hemorrhage. CT of the head ordered, EKG and basic laboratory studies ordered. She was given hydration and Zofran and re-evaluated. no coronary risk factors or cardiac risk factors leading towards potential cardiac syncope but will add on troponin as well. Patient CT scan shows no acute intracranial findings. Chronic craniotomy changes and clipping/ coiling of her aneurysm. No acute findings. Her labs are largely point towards dehydration with an elevated creatinine from her baseline. Her blood pressure all improved with fluids and her symptoms resolved. No further syncopal events. She did not have any orthostatic vitals on reassessment after fluids. No further symptoms or issues while here in the emergency department. Patient was hydrated and safe for discharge home at this time with return precautions and PCP follow-up instructions. Differential Diagnosis Differential Diagnosis: Suspect vasovagal event versus orthostatic event given the soft blood pressure readings. She has no infectious symptoms at this time. Low suspicion intracranial pathology but she does have risk factors including her aneurysm. She has no stroke findings at this time. Low suspicion intracranial pathology or hemorrhage. CT of the head ordered, EKG and basic laboratory studies ordered. She was given hydration and Zofran and re-evaluated. no coronary risk factors or cardiac risk factors leading towards potential cardiac syncope but will add on troponin as well. Lab Data MDM Lab Attestation statement: I personally reviewed the patient's lab results. 08/18/25 23:11 08/18/25 23:11 Labs: Lab Results 08/18/25 08/18/25 Range/Units 23:00 23:11 WBC 9.1 (4.5-10.0) K/mm3 RBC 3.96 L (4.2-5.4) M/mm3 Hgb 12.7 (12.0-15.0) g/dL Hct 38.2 (37.0-47.0) % MCV 96.5 (80-100) fl MCH 32.1 (26-34) pg MCHC 33.2 (32-36) g/dl RDW 12.0 (11.5-14.5) % Plt Count 343 (150-375) k/mm3 MPV 9.9 (7.4-10.4) fl Immature Gran % (Auto) 0.5 (0-0.5) % Neut % (Auto) 53.7 (45.5-73.1) % Lymph % (Auto) 35.8 (18.3-44.2) % [place] % (Auto) 6.9 (2.6-8.5) % Eos % (Auto) 2.4 (0-4.4) % Baso % (Auto) 0.7 (0.2-1.2) % Lymph # (Auto) 3.26 H (0.9-3.2) K/mm3 [place] # (Auto) 0.6 (0.1-0.6) K/mm3 Eos # (Auto) 0.2 (0-0.3) K/mm3 Baso # (Auto) 0.1 (0.0-0.1) K/mm3 Abs Immat Gran (auto) 0.05 H (0.00-0.031) K/mm3 Absolute Neuts (auto) 4.9 (1.3-6.7) K/mm3 Absolute Nucleated RBC 0.000 (0.0-0.012) K/mm3 Nucleated RBC % 0.0 (0.0-0.2) % % Immature Plt Fraction 4.0 (0.9-11.2) % PT Cancelled INR Cancelled APTT Cancelled Sodium 135 L (137-145) mmol/L Potassium 3.6 (3.4-5.0) mmol/L Chloride 100 (98-107) mmol/L Carbon Dioxide 22 (22-30) mmol/L Anion Gap 13 H (4-12) mmol/L BUN 21 H (7-17) mg/dL Creatinine 1.48 H (0.7-1.0) mg/dL Estim Creat Clear Calc Not Reportable Estimated GFR 34 L (59 - ) Glucose 130 H (65-110) mg/dL Calcium 9.3 (8.4-10.2) mg/dL Total Bilirubin 0.4 (0.2-1.3) mg/dL AST 38 H (14-36) U/L ALT 22 (6-35) U/L Alkaline Phosphatase 47 (38-126) U/L Troponin I < 0.012 (0.000-0.034) ng/mL Total Protein 7.5 (6.3-8.2) g/dL Albumin 4.7 (3.5-5.1) g/dL TSH (Reflex) Cancelled Imaging Data Attestation: I personally reviewed and interpreted this imaging study as follows: My impression: No acute ICH
[2025-08-18] MEDS: ONDANSETRON INJ 4 MG/2 ML VIAL IV PUSH (23:17)
[2025-08-18] MEDS: LACTATED RINGERS 1,000 ML 999 ML IV CONT ×2 (23:17→23:21)
[2025-08-18 23:24] LABS: Hematocrit 38.2 % (37.0-47.0); Hemoglobin 12.7 g/dL (12.0-15.0); Immature Granulocyte Percent A 0.5 % (0-0.5); Immature Platelet Fraction Pct 4.0 % (0.9-11.2); Lymphocytes Absolute Auto 3.26 K/mm3 (0.9-3.2); Mean Corpuscular HGB Conc 33.2 g/dl (32-36); Mean Corpuscular Hemoglobin 32.1 pg (26-34); Mean Corpuscular Volume 96.5 fl (80-100); Nucleated Red Blood Cells Absolute Auto 0.000 K/mm3 (0.0-0.012); Nucleated Red Blood Cells Perc 0.0 % (0.0-0.2); Platelet Count Result 343 k/mm3 (150-375); Red Blood Count 3.96 M/mm3 (4.2-5.4); White Blood Count 9.1 K/mm3 (4.5-10.0)
[2025-08-18 23:35] LABS: Alanine Aminotransferase 22 U/L (6-35); Albumin Level 4.7 g/dL (3.5-5.1); Alkaline Phosphatase 47 U/L (38-126); Anion Gap 13 mmol/L (4-12); Aspartate Amino Transferase 38 U/L (14-36); Bilirubin,Total 0.4 mg/dL (0.2-1.3); Blood Urea Nitrogen 21 mg/dL (7-17); Calcium 9.3 mg/dL (8.4-10.2); Carbon Dioxide 22 mmol/L (22-30); Chloride 100 mmol/L (98-107); Estimated Glomerular Filt Rate 34; Glucose 130 mg/dL (65-110); Potassium 3.6 mmol/L (3.4-5.0); Sodium 135 mmol/L (137-145); Total Protein 7.5 g/dL (6.3-8.2)
[2025-08-18 23:46] LABS: Troponin I < 0.012 ng/mL (0.000-0.034)
--- NOTE | 2025-08-19 00:02 | PC.NURSE ---
Patient stuck for blood by multiple RNs and gear technician and patient is tough stick, unsuccessful. Patient refusing any more pokes. ERP notified and [facility] to cancel remaining blood work orders.
[2025-08-19 01:30] VITALS: BP 96/55
[2025-08-19 01:35] VITALS: BP 121/61; PULSE 93
[2025-08-19 01:40] VITALS: BP 124/67; PULSE 91
[2025-08-19 02:16] VITALS: BP 111/53; PULSE 76; RESP 15; TEMP 36.6; O2SAT 93
== END 2025-08-19 02:19 | disposition home or self-care (01) ==
PROVIDERS: Emergency Provider Student in an Organized Health Care Education/Training Program; PCP Internal Medicine
DX: I95.1 Orthostatic hypotension (principal); N17.9 Acute kidney failure, unspecified; E86.0 Dehydration; I10 Essential (primary) hypertension; E78.2 Mixed hyperlipidemia; E55.9 Vitamin D deficiency, unspecified; E78.019 Familial hypercholesterolemia, unspecified; G47.33 Obstructive sleep apnea (adult) (pediatric); K21.9 Gastro-esophageal reflux disease without esophagitis; F32.A Depression, unspecified; Z86.73 Personal history of transient ischemic attack (TIA), and cerebral infarction without residual deficits; Z86.2 Personal history of diseases of the blood and blood-forming organs and certain disorders involving the immune mechanism; Z90.49 Acquired absence of other specified parts of digestive tract; Z90.710 Acquired absence of both cervix and uterus
CPT/HCPCS: 36415; 70450; 71045; 80053; 84484; 85025; 85055; 93005; 96361; 96374; 99284; J2405; J7120